=== PATIENT | male | born 1945 | race Two or more races ===

== ENCOUNTER 2018-12-18 23:05 | Emergency (ER) | payer OTHER ==
[~2018-12-18] VITALS: Ht 180.3 cm; Wt 78.5 kg
--- OUTSIDE RECORDS SUMMARY | 2018-12-18 23:08 | XMS REPORT | Summary of Care ---
Author Author [facility] [place] Organization [facility] [place] Address Unknown Phone Unavailable Encounter HQ Dennys(FIN) [phone] Date(s): 12/08/18 - 12/08/18 [facility] [place] [address] [place] [phone] [phone] Discharge Disposition: Home or Self Care Attending Physician: Kusum Leon MD Referring Physician: Kusum Leon MD Vital Signs No data available for this section Problem List Condition Effective Dates Status Health Status Informant Cholesterol Resolved level(Confirmed)1 Hypertension(Confirm Resolved ed) Mass(Confirmed)2 Resolved Neck pain(Confirmed) Resolved Reflux(Confirmed) Resolved 1high 2lung Allergies, Adverse Reactions, Alerts Substance Reaction Severity Status penicillins Facial swelling Active lisinopril Active Medications No data available for this section Results No data available for this section Immunizations No data available for this section Procedures Procedure Date Related Diagnosis Body Site Status 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 Smoking Status Former smoker; Exposure to Tobacco Smoke None; Cigarette Smoking Last 365 Days No; Reg Smoking Cessation Counseling No entered on: 07/28/14 Assessment and Plan No data available for this section
--- OUTSIDE RECORDS SUMMARY | 2018-12-18 23:08 | XMS REPORT | Continuity of Care Document ---
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 [facility] Cholesterol level<sup>1</sup> Resolved Problem 12/10/2018 high [facility], [facility] [place] Hypertension Resolved Problem 12/10/2018 [facility], [facility] [place] Mass<sup>2</sup> Resolved Problem 12/10/2018 lung [facility], [facility] [place] Neck pain Resolved Problem 12/10/2018 [facility], [facility] [place] Reflux Resolved Problem 12/10/2018 [facility], [facility] [place] 786.6 Active [facility] CHEST SWELLING/MASS/LUMP Active [facility] XRAY Active [facility] Medications Medication Details Route Status Patient Instructions Ordering Provider Order Date Source Albuterol 0.09 MG/ACTUAT Inhalant Solution 2 puff, Route: INHALER, Drug Form: AERO/A, Dosing Weight 76.364, kg, Q6H, Start date: 08/03/14 18:00:00, Duration: 30 day, Stop date: 09/02/14 12:00:00Notes: Albuterol 90 microgram/inh 8gm HFA Same as: Ventjean claude, Proventil Inactive 08/03/2014 [facility] Albuterol 0.09 MG/ACTUAT Inhalant Solution 180 microgram=2 puff, INHALER, Q6H, # 1 spray, 0 Refill(s) Active 08/03/2014 [facility] Aspirin 325 MG Enteric Coated Tablet 325 mg, 1 tab, Route: PO, Drug form: ECTAB, Daily, Dosing Weight 76.364, kg, Priority: NOW, Start date: 08/02/14 20:17:00, Duration: 30 day, Stop date: 08/31/14 9:00:00Notes: (Do Not Crush) Do not crush or chew. No Longer Active 08/03/2014 [facility] acetaminophen-codeine #3 2 tab, Route: PO, Drug Form: TAB, Dosing Weight 76.364, kg, Q4H, PRN Pain Score 4-6, Start date: 08/02/14 7:16:00, Duration: 30 day, Stop date: 09/01/14 7:15:00Notes: Do not exceed 4gm/day of acetaminophen. (Same as: Tylenol with Codeine # 3) No Longer Active 08/02/2014 [facility] Silver Sulfadiazine 10 MG/ML Topical Cream [Silvadene] 1 appl, Route: TOP, BID, Drug form: CRM, Start date: 08/01/14 17:00:00, Duration: 30 day, Stop date: 08/31/14 9:00:00Notes: (Same as: Silvadene) No Longer Active 08/01/2014 [facility] Amlodipine 10 mg, 2 tab, Route: PO, Drug form: TAB, Daily, Dosing Weight 76.364, kg, Start date: 08/01/14 9:00:00, Duration: 30 day, Stop date: 08/30/14 9:00:00Notes: (Same as: Norvasc) No Longer Active 08/01/2014 [facility] Losartan 100 mg, 2 tab, Route: PO, Drug form: TAB, Daily, Dosing Weight 76.364, kg, Start date: 08/01/14 9:00:00, Duration: 30 day, Stop date: 08/30/14 9:00:00Notes: (Same as: Cozaar) No Longer Active 08/01/2014 [facility] Doxazosin 8 mg, 2 tab, Route: PO, Drug form: TAB, Bedtime, Dosing Weight 76.364, kg, Start date: 07/31/14 23:00:00, Duration: 30 day, Stop date: 08/30/14 21:00:00Notes: (Same as: Cardura) No Longer Active 08/01/2014 [facility] Pravastatin 20 mg, 1 tab, Route: PO, Drug form: TAB, Bedtime, Dosing Weight 76.364, kg, Start date: 07/31/14 21:00:00, Duration: 30 day, Stop date: 08/29/14 21:00:00Notes: (Same as: Pravachol) No Longer Active 08/01/2014 [facility] Dulcolax Laxative 10 mg, 1 supp, Route: SC, Drug form: SUPP, Daily, Dosing Weight 76.364, kg, PRN Constipation, Priority: STAT, Start date: 07/31/14 18:32:00, Duration: 30 day, Stop date: 08/30/14 18:31:00Notes: (Same As: Dulcolax, Bisco-Lax) No Longer Active 07/31/2014 [facility] Calcium Carbonate 1250 MG Oral Tablet 1,000 mg, 2 tab, Route: PO, Drug form: TAB, BID, Dosing Weight 76.364, kg, Start date: 07/31/14 17:00:00, Duration: 30 day, Stop date: 08/30/14 9:00:00Notes: 500mg elemental [id number] calcium carbonate. Contains 500mg elemental calcium. (Same As: OsCal 500) No Longer Active 07/31/2014 [facility] heparin, porcine 5,000 unit, 1 mL, Route: SUB-Q, Drug form: INJ, C25H-24, Dosing Weight 76.364, kg, Start date: 07/31/14 8:00:00, Duration: 30 day, Stop date: 08/29/14 20:00:00Notes: porcine heparin No Longer Active 07/31/2014 [facility] lansoprazole 15 mg, Route: PO, Drug form: ECCAP, Before Breakfast, Dosing Weight 76.364, kg, Start date: 07/31/14 7:30:00, Duration: 30 day, Stop date: 08/29/14 7:30:00 Inactive 07/31/2014 [facility] Protonix 40 mg, 1 tab, Route: PO, Drug form: ECTAB, Before Breakfast, Start date: 07/31/14 7:30:00, Duration: 30 day, Stop date: 08/29/14 7:30:00Notes: Tablet should not be chewed or crushed. (Same as: Protonix) No Longer Active 07/31/2014 [facility] Sodium Chloride 0.154 MEQ/ML Injectable Solution 500 mL, 0 ml/hr, Infuse Over: 0 hr, Route: IV, 500, Drug form: INJ, ONCE, Dosing Weight 76.364 kg, Start date: 07/31/14 6:03:00, Stop date: 07/31/14 6:03:00 Inactive 07/31/2014 [facility] Levaquin 500 mg, 100 mL, Route: IVPB, Drug form: INJ, [id number], Start date: 07/31/14 5:00:00, Duration: 30 day, Stop date: 08/29/14 5:00:00Notes: (Same as:Levaquin) No Longer Active 07/31/2014 [facility] nitroglycerin 0.4 mg sublingual tablet 0.4 mg, 1 tab, Route: SL, Drug form: TAB, Q5Min, PRN Chest Pain, Start date: 07/30/14 19:13:00, Duration: 30 day, Stop date: 08/29/14 18:12:00Notes: (Same as:Nitroquick, Nitrostat) "Do Not Crush" Sublingual tablet No Longer Active 07/31/2014 [facility] atropine 0.5 mg, 5 mL, Route: IVP, Drug form: INJ, PRN, PRN Bradycardia, Start date: 07/30/14 19:13:00, Duration: 30 day, Stop date: 08/29/14 18:12:00 No Longer Active 07/31/2014 [facility] Magnesium Sulfate 2 gm, 50 mL, Route: IVPB, Drug form: INJ, Q2H, Dosing Weight 76.364, kg, Total dose=4 gm, Priority: NOW, Start date: 07/30/14 17:09:00, Duration: 2 doses or times, Stop date: 07/30/14 20:00:00 Inactive 07/30/2014 [facility] Robinul 0.2 mg, Route: IV, ONCE, Dosing Weight 76.364, kg, Start date: 07/30/14 15:42:00, Stop date: 07/30/14 15:42:00 Inactive 07/30/2014 [facility] Magnesium Sulfate 2 gm, 50 mL, Route: IVPB, Drug form: INJ, ONCE, Dosing Weight 76.364, kg, Total dose=2 gm, Start date: 07/30/14 15:12:00, Duration: 1 doses or times, Stop date: 07/30/14 15:12:00 Inactive 07/30/2014 [facility] Albuterol 0.83 MG/ML Inhalant Solution 2.49 mg, 3 mL, Route: NEB, Drug form: SOLN, RQ4H, Dosing Weight 76.364, kg, Start date: 07/30/14 15:00:00, Duration: 30 day, Stop date: 08/29/14 11:00:00Notes: SEE RT DOCUMENTATION (Same as: Proventil) No Longer Active 07/30/2014 [facility] Hydromorphone 15 mg, 30 mL, Route: IV, Initial Loading Dose: 0 mg, [employer] OPERATIONS [employer]ERK Dose: 0.2 mg, FIN[employer] OPERATIONS [employer]ERK Lockout: 15 minutes, Continuous Basal Rate: 0 mg, 4 Hour Limit (In MG): 3.2, Drug Form: INJ, Continuous, Start date: 07/30/14 15:00:00, Duration: 30 day, Stop date: 08/29/14 13...Notes: (Same as: Dilaudid) conc=0.5 mg/ml Hydromorphone [employer] OPERATIONS [employer]ERK Dose: ;Delay: ;Basal: No Longer Active 07/30/2014 [facility] Naloxone 0.04 mg, 0.1 mL, Route: IVP, Drug form: INJ, Q2MIN, Dosing Weight 76.364, kg, PRN Narcotic Reversal, Start date: 07/30/14 14:35:00, Duration: 8 doses or times, Stop date: Limited # of timesNotes: Same as Narcan Inactive 07/30/2014 [facility] Morphine 2 mg, 1 mL, Route: IVP, Drug form: INJ, Q5Min, Dosing Weight 76.364, kg, PRN Pain Score 4-6, Start date: 07/30/14 14:35:00, Duration: 5 doses or times, Stop date: Limited # of timesNotes: (Same as:MO RPhine Sulfate) Inactive 07/30/2014 [facility] Meperidine 12.5 mg, 0.25 mL, Route: IVP, Drug form: INJ, Q30Min, Dosing Weight 76.364, kg, PRN Other -See Comment, For shivering, Start date: 07/30/14 14:35:00, Duration: 2 doses or times, Stop date: Limited # of timesNotes: (Same As: Demerol) Inactive 07/30/2014 [facility] Flumazenil 0.2 mg, 2 mL, Route: IVP, Drug form: INJ, PRN, Dosing Weight 76.364, kg, PRN Benzodiazepine Reversal, Initial dose, Start date: 07/30/14 14:35:00, Duration: 30 day, Stop date: 08/29/14 13:34:00Notes: (Same as: Romazicon) Inactive 07/30/2014 [facility] Fentanyl 25 microgram, 0.5 mL, Route: IVP, Drug form: INJ, Q5Min, Dosing Weight 76.364, kg, PRN Pain Score 4-6, Start date: 07/30/14 14:35:00, Duration: 4 doses or times, Stop date: Limited # of timesNotes: (Same as: Sublimaze) Preservative free. Inactive 07/30/2014 [facility] Ondansetron 4 mg, Route: IVP, ONCE, Dosing Weight 76.364, kg, PRN Nausea & Vomiting, Start date: 07/30/14 14:35:00 Inactive 07/30/2014 [facility] Naloxone 0.04 mg, 0.1 mL, Route: IVP, Drug form: INJ, Q2MIN, Dosing Weight 76.364, kg, PRN Narcotic Reversal, Start date: 07/30/14 14:34:00, Duration: 30 day, Stop date: 08/29/14 13:33:00Notes: Same as Narcan No Longer Active 07/30/2014 [facility] Levofloxacin 500 mg, Route: IVPB, [id number], Dosing Weight 76.364, kg, Start date: 07/30/14 14:00:00, Duration: 30 day, Stop date: 08/28/14 14:00:00 Inactive 07/30/2014 [facility] Sodium Chloride 0.154 MEQ/ML Injectable Solution 1,000 mL, Rate: 30 ml/hr, Infuse over: 33.3 hr, Route: IV, Dosing Weight 76.364 kg, Total Volume: 1,000, Start date: 07/30/14 13:50:00, Duration: 30 day, Stop date: 08/29/14 13:49:00 No Longer Active 07/30/2014 [facility] heparin sodium, porcine 2500 UNT/ML Injectable Solution 5,000 unit, Route: SUB-Q, Drug form: INJ, ONCE, Dosing Weight 76.364, kg, Start date: 07/30/14 8:01:00, Stop date: 07/30/14 8:01:00 Inactive 07/30/2014 [facility] Levaquin 500 mg, Route: IV, ONCE, Dosing Weight 76.364, kg, Start date: 07/30/14 8:01:00, Stop date: 07/30/14 8:01:00 Inactive 07/30/2014 [facility] Calcium Chloride 0.0014 MEQ/ML / Potassium Chloride 0.004 MEQ/ML / Sodium Chloride 0.103 MEQ/ML / Sodium Lactate 0.028 MEQ/ML Injectable Solution 1,000 mL, Rate: 25 ml/hr, Infuse over: 40 hr, Route: IV, Dosing Weight 76.364 kg, Total Volume: 1,000, Start date: 07/30/14 7:59:00, Duration: 30 day, Stop date: 08/29/14 7:58:00 Inactive 07/30/2014 [facility] Acetaminophen 325 MG / Hydrocodone Bitartrate 5 MG Oral Tablet 2 tab, Route: PO, Dosing Weight 75, kg, Q4H, PRN Pain Score 4-6, Start date: 06/30/14 12:58:00, Duration: 30 day, Stop date: 07/30/14 12:57:00 No Longer Active 06/30/2014 [facility] Ondansetron 4 mg, Route: IVP, Q8H, Dosing Weight 75, kg, PRN Nausea & Vomiting, Start date: 06/30/14 12:58:00, Duration: 30 day, Stop date: 07/30/14 12:57:00 No Longer Active 06/30/2014 [facility] Tylenol 650 mg, 2 tab, Route: PO, Drug form: TAB, Q6H, Dosing Weight 80, kg, PRN Pain Score 1-3, Start date: 05/31/14 11:15:00, Duration: 30 day, Stop date: 06/30/14 11:14:00Notes: Do not exceed 4 gm/day. ( Same as: Tylenol) No Longer Active 05/31/2014 [facility] Potassium Chloride 20 mEq, 100 mL, Route: IVPB, Drug form: INJ, ONCE, Dosing Weight 80, kg, Start date: 05/31/14 10:01:00, Stop date: 05/31/14 10:01:00Notes: (Same as: KCL) Infuse no faster than 10 mEq/hr if given peripherally. Inactive 05/31/2014 [facility] Reglan 5 mg, 1 mL, Route: IVP, Drug form: INJ, Q6H, Dosing Weight 80, kg, Start date: 05/30/14 12:00:00, Duration: 30 day, Stop date: 06/29/14 6:00:00Notes: (Same as: Reglan) Inactive 05/30/2014 [facility] Levofloxacin 500 mg, 100 mL, Route: IVPB, Drug form: INJ, [id number], Dosing Weight 80, kg, Start date: 05/30/14 11:00:00, Duration: 30 day, Stop date: 06/28/14 11:00:00Notes: (Same as:Levaquin) No Longer Active 05/30/2014 [facility] Zosyn 3.375 gm, Route: IVPB, Drug form: PDR/INJ, ABXQ6H, Dosing Weight 80, kg, Start date: 05/30/14 10:00:00, Duration: 30 day, Stop date: 06/29/14 4:00:00 Inactive 05/30/2014 [facility] docusate sodium 100 mg oral capsule 100 mg, 1 cap, Route: PO, Drug form: CAP, BID, PRN Constipation, Start date: 05/30/14 9:00:00, Duration: 30 day, Stop date: 06/29/14 8:59:00Notes: (Same as: Colace) (Do Not Crush) No Longer Active 05/30/2014 [facility] Losartan 100 mg, 2 tab, Route: PO, Drug form: TAB, Daily, Dosing Weight 80, kg, Start date: 05/30/14 9:00:00, Duration: 30 day, Stop date: 06/28/14 9:00:00Notes: (Same as: Cozaar) No Longer Active 05/30/2014 [facility] Amlodipine 10 mg, 2 tab, Route: PO, Drug form: TAB, Daily, Dosing Weight 80, kg, Start date: 05/30/14 9:00:00, Duration: 30 day, Stop date: 06/28/14 9:00:00Notes: (Same as: Norvasc) No Longer Active 05/30/2014 [facility] lansoprazole 30 mg, Route: PO, Drug form: ECCAP, Before Breakfast, Dosing Weight 80, kg, Start date: 05/30/14 7:30:00, Duration: 30 day, Stop date: 06/28/14 7:30:00 No Longer Active 05/30/2014 [facility] Reglan 5 mg, 1 mL, Route: IV, Drug form: INJ, ONCE, Dosing Weight 80, kg, Start date: 05/29/14 22:48:00, Stop date: 05/29/14 22:48:00Notes: (Same as: Reglan) Inactive 05/30/2014 [facility] Pravastatin 20 mg, 1 tab, Route: PO, Drug form: TAB, Bedtime, Dosing Weight 80, kg, Start date: 05/29/14 21:00:00, Duration: 30 day, Stop date: 06/27/14 21:00:00Notes: (Same as: Pravachol) No Longer Active 05/30/2014 [facility] Protonix 40 mg, 1 tab, Route: PO, Drug form: ECTAB, Before Breakfast, Start date: 05/29/14 21:00:00, Duration: 30 day, Stop date: 06/28/14 7:30:00Notes: Tablet should not be chewed or crushed. (Same as: Protonix) No Longer Active 05/30/2014 [facility] Doxazosin 8 mg, 2 tab, Route: PO, Drug form: TAB, Daily, Dosing Weight 80, kg, Start date: 05/29/14 20:40:00, Duration: 30 day, Stop date: 06/28/14 21:00:00Notes: (Same as: Cardura) No Longer Active 05/30/2014 [facility] Fleet Enema 133 ml, Route: SC, Drug Form: CHERELLE, Dosing Weight 80, kg, ONCE, Start date: 05/29/14 20:18:00, Stop date: 05/29/14 20:18:00 Inactive 05/30/2014 [facility] heparin, porcine 5,000 unit, 1 mL, Route: SUB-Q, Drug form: INJ, Q12H, Dosing Weight 79.091, kg, Start date: 05/29/14 20:00:00, Duration: 30 day, Stop date: 06/28/14 9:00:00Notes: porcine heparin No Longer Active 05/30/2014 [facility] NS 1000 mL 1,000 mL, Rate: 50 ml/hr, Infuse over: 20 hr, Route: IV, Dosing Weight 80 kg, Total Volume: 1,000, Start date: 05/29/14 17:54:00, Duration: 30 day, Stop date: 06/28/14 17:53:00 No Longer Active 05/29/2014 [facility] Potassium Chloride 10 MEQ Extended Release Tablet 20 mEq, 2 tab, Route: PO, Drug form: ERTAB, ONCE, Dosing Weight 80, kg, Start date: 05/29/14 11:52:00, Stop date: 05/29/14 11:52:00Notes: (Same as: K-Dur 10) "Do Not Crush" With food and full glass of water Inactive 05/29/2014 [facility] Potassium Chloride 20 mEq, Route: IVPB, ONCE, Dosing Weight 80, kg, Priority: Routine, Start date: 05/29/14 11:50:00, Stop date: 05/29/14 11:50:00 Inactive 05/29/2014 [facility] Dulcolax Laxative 10 mg, 1 supp, Route: SC, Drug form: SUPP, ONCE, Dosing Weight 80, kg, PRN as needed for constipation, Start date: 05/29/14 11:36:00Notes: (Same As: Dulcolax, Bisco-Lax) Inactive 05/29/2014 [facility] Acetaminophen 325 MG / Hydrocodone Bitartrate 5 MG Oral Tablet 2 tab, Route: PO, Drug Form: TAB, Dosing Weight 80, kg, Q4H, PRN Pain Score 4-6, Start date: 05/29/14 11:14:00, Duration: 30 day, Stop date: 06/28/14 11:13:00Notes: (Same as: [place] 325/5) Do not exceed 4gm/day of acetaminophen. No Longer Active 05/29/2014 [facility] Potassium Chloride 40 mEq, 2 tab, Route: PO, Drug form: ERTAB, ONCE, Dosing Weight 80, kg, Priority: NOW, Start date: 05/29/14 8:00:00, Stop date: 05/29/14 8:00:00Notes: (Same as: K-Dur 20) "Do Not Crush" With food and full glass of water Inactive 05/29/2014 [facility] Ketorolac Tromethamine 15 MG/ML Injectable Solution 15 mg, 1 mL, Route: IV, Drug form: INJ, Q6H, Dosing Weight 80, kg, Start date: 05/29/14 2:00:00, Duration: 2 day, Stop date: 05/30/14 19:00:00Notes: (Same as:Toradol) IV bolus must be given >15 seconds. Give IM administration slowly and deeply into the muscle. Not for use > 4 days. Inactive 05/29/2014 [facility] heparin, porcine 5,000 unit, 1 mL, Route: SUB-Q, Drug form: INJ, [id number], Dosing Weight 79.091, kg, Start date: 05/28/14 23:00:00, Duration: 30 day, Stop date: 06/27/14 11:00:00Notes: porcine heparin No Longer Active 05/29/2014 [facility] chlorhexidine gluconate 1.2 MG/ML Mouthwash 15 ml, Route: S&SPIT, Q12H, Drug form: LIQ, Start date: 05/28/14 21:00:00, Duration: 2 week, Stop date: 06/11/14 9:00:00Notes: (Same As: Peridex) No Longer Active 05/29/2014 [facility] Ketorolac Tromethamine 30 MG/ML Injectable Solution 30 mg, 1 mL, Route: IV, Drug form: INJ, ONCE, Dosing Weight 80, kg, Start date: 05/28/14 19:13:00, Duration: 1 doses or times, Stop date: 05/28/14 19:13:00Notes: (Same as:Toradol) IV bolus must be given >15 seconds. Give IM administration slowly and deeply into the muscle. Not for use > 4 days Inactive 05/29/2014 [facility] Albuterol 0.83 MG/ML Inhalant Solution 2.49 mg, 3 mL, Route: NEB, Drug form: SOLN, RQ4H, Dosing Weight 79.091, kg, Start date: 05/28/14 19:00:00, Duration: 30 day, Stop date: 06/27/14 15:00:00Notes: SEE RT DOCUMENTATION (Same as: Proventil) Inactive 05/29/2014 [facility] Levofloxacin 500 mg, 100 mL, Route: IVPB, Drug form: INJ, [id number], Dosing Weight 79.091, kg, Start date: 05/28/14 17:00:00, Duration: 30 day, Stop date: 06/26/14 17:00:00Notes: (Same as:Levaquin) No Longer Active 05/28/2014 [facility] Cefoxitin 20 MG/ML Injectable Solution 1 gm, Route: IVPB, ABXQ6H, Dosing Weight 79.091, kg, Start date: 05/28/14 17:00:00, Duration: 24 hr, Stop date: 05/29/14 11:00:00Notes: (Same As: Mefoxin) No Longer Active 05/28/2014 [facility] Magnesium Sulfate 2 gm, 50 mL, Route: IVPB, Drug form: INJ, ONCE, Dosing Weight 80, kg, Total dose=2 gm, Start date: 05/28/14 16:48:00, Duration: 1 doses or times, Stop date: 05/28/14 16:48:00 Inactive 05/28/2014 [facility] Naloxone 0.04 mg, 0.1 mL, Route: IVP, Drug form: INJ, Q2MIN, Dosing Weight 79.091, kg, PRN Narcotic Reversal, Start date: 05/28/14 16:06:00, Duration: 30 day, Stop date: 06/27/14 16:05:00Notes: Same as Narcan No Longer Active 05/28/2014 [facility] Morphine 30 mg, 30 mL, Route: IV, FIN[employer]CIAL OPERATIONS CLERK Dose: 1 mg, FINANCIAL OPERATIONS CLERK Lockout: 10 minutes, Continuous Basal Rate: 0 mg, 4 Hour Limit (In MG): 24, Drug Form: INJ, Continuous, Pain, Start date: 05/28/14 16:06:00, Duration: 30 day, Stop date: 06/27/14 16:05:00Notes: Dose: Delay: Basal rate: 4hr limit: (Same as:Rapi-Ject) No Longer Active 05/28/2014 [facility] Docusate 100 mg, Route: PO, BID, Dosing Weight 79.091, kg, PRN Constipation, Start date: 05/28/14 16:06:00, Duration: 30 day, Stop date: 06/27/14 16:05:00 Inactive 05/28/2014 [facility] Nitroglycerin 0.4 mg, 1 tab, Route: SL, Drug form: TAB, Q5Min, Dosing Weight 79.091, kg, PRN Chest Pain, Start date: 05/28/14 16:06:00, Duration: 30 day, Stop date: 06/27/14 16:05:00Notes: (Same as:NitroquSukhjinder velasquez rostat) "Do Not Crush" Sublingual tablet No Longer Active 05/28/2014 [facility] Sodium Chloride 0.154 MEQ/ML Injectable Solution 1,000 mL, Rate: 75 ml/hr, Infuse over: 13.3 hr, Route: IV, Dosing Weight 79.091 kg, Total Volume: 1,000, Start date: 05/28/14 16:06:00, Duration: 30 day, Stop date: 06/27/14 16:05:00 No Longer Active 05/28/2014 [facility] Magnesium Sulfate 2 gm, 50 mL, Route: IVPB, Drug form: INJ, ONCE, Dosing Weight 79.091, kg, Start date: 05/28/14 12:06:00, Duration: 2 hr, Stop date: 05/28/14 12:06:00 Inactive 05/28/2014 [facility] Albuterol 0.83 MG/ML Inhalant Solution 2.49 mg, 3 mL, Route: NEB, Drug form: SOLN, RQ4H, Dosing Weight 79.091, kg, Start date: 05/28/14 11:00:00, Duration: 30 day, Stop date: 06/27/14 7:00:00Notes: SEE RT DOCUMENTATION (Same as: Proventil) No Longer Active 05/28/2014 [facility] Morphine 30 mg, 30 mL, Route: IV, FIN[employer]CIAL OPERATIONS CLERK Dose: 1 mg, FINANCIAL OPERATIONS CLERK Lockout: 10 minutes, Continuous Basal Rate: 0 mg, 4 Hour Limit (In MG): 24, Drug Form: INJ, Continuous, Pain, Start date: 05/28/14 10:43:00, Duration: 30 day, Stop date: 06/27/14 10:42:00Notes: Dose: Delay: Basal rate: 4hr limit: (Same as:Judit-Jebhavesh) Inactive 05/28/2014 [facility] Naloxone 0.04 mg, 0.1 mL, Route: IVP, Drug form: INJ, Q2MIN, Dosing Weight 79.091, kg, PRN Narcotic Reversal, Start date: 05/28/14 10:43:00, Duration: 30 day, Stop date: 06/27/14 10:42:00Notes: Same as Narcan Inactive 05/28/2014 [facility] Sodium Chloride 0.154 MEQ/ML Injectable Solution 1,000 mL, Rate: 75 ml/hr, Infuse over: 13.3 hr, Route: IV, Dosing Weight 79.091 kg, Total Volume: 1,000, Start date: 05/28/14 10:43:00, Duration: 30 day, Stop date: 06/27/14 10:42:00 Inactive 05/28/2014 [facility] Promethazine 6.25 mg, 0.25 mL, Route: IVPB, ONCE, Dosing Weight 79.091, kg, PRN Nausea & Vomiting, Start date: 05/28/14 10:36:00Notes: Do not give IV push. (Same as: Phenergan) Inactive 05/28/2014 [facility] Ondansetron 4 mg, 2 mL, Route: IVP, Drug form: INJ, ONCE, Dosing Weight 79.091, kg, PRN Nausea & Vomiting, Start date: 05/28/14 10:36:00Notes: (Same as: Zofran) Inactive 05/28/2014 [facility] Diphenhydramine 12.5 mg, 0.25 mL, Route: IVP, Drug form: INJ, Q6H, Dosing Weight 79.091, kg, PRN Itching, Start date: 05/28/14 10:36:00, Duration: 30 day, Stop date: 06/27/14 10:35:00Notes: (Same as: Benadryl) Inactive 05/28/2014 [facility] Naloxone 0.04 mg, 0.1 mL, Route: IVP, Drug form: INJ, Q2MIN, Dosing Weight 79.091, kg, PRN Narcotic Reversal, Start date: 05/28/14 10:36:00, Duration: 8 doses or times, Stop date: Limited # of timesNotes: Same as Narcan Inactive 05/28/2014 [facility] Glycopyrrolate 0.2 mg, 1 mL, Route: IVP, Drug form: INJ, Q5Min, Dosing Weight 79.091, kg, PRN Bradycardia, Start date: 05/28/14 10:36:00, Duration: 3 doses or times, Stop date: Limited # of timesNotes: (Same as: Robinul) Inactive 05/28/2014 [facility] Ketorolac 30 mg, 1 mL, Route: IVP, Drug form: INJ, ONCE, Dosing Weight 79.091, kg, Start date: 05/28/14 10:36:00, Duration: 1 doses or times, Stop date: 05/28/14 10:36:00Notes: (Same as:Toradol) IV bolus must be given >15 seconds. Give IM administration slowly and deeply into the muscle. Not for use > 4 days Inactive 05/28/2014 [facility] Fentanyl 25 microgram, 0.5 mL, Route: IVP, Drug form: INJ, Q5Min, Dosing Weight 79.091, kg, PRN Pain Score 4-6, Start date: 05/28/14 10:36:00, Duration: 4 doses or times, Stop date: Limited # of timesNotes: (Same as: Sublimaze) Preservative free. Inactive 05/28/2014 [facility] Meperidine 12.5 mg, 0.25 mL, Route: IVP, Drug form: INJ, Q30Min, Dosing Weight 79.091, kg, PRN Other -See Comment, For shivering, Start date: 05/28/14 10:36:00, Duration: 2 doses or times, Stop date: Limited # of timesNotes: (Same As: Demerol) Inactive 05/28/2014 [facility] Flumazenil 0.2 mg, 2 mL, Route: IVP, Drug form: INJ, PRN, Dosing Weight 79.091, kg, PRN Benzodiazepine Reversal, Initial dose, Start date: 05/28/14 10:36:00, Duration: 30 day, Stop date: 06/27/14 10:35:00Notes: (Same as: Romazicon) Inactive 05/28/2014 [facility] Morphine 2 mg, 1 mL, Route: IVP, Drug form: INJ, Q5Min, Dosing Weight 79.091, kg, PRN Pain Score 4-6, Start date: 05/28/14 10:36:00, Duration: 5 doses or times, Stop date: Limited # of timesNotes: (Same as:MO RPhine Sulfate) Inactive 05/28/2014 [facility] Oxycodone 10 mg, 2 tab, Route: PO, Drug form: TAB, Q4H, Dosing Weight 79.091, kg, PRN Pain Score 7-10, Start date: 05/28/14 10:36:00, Duration: 30 day, Stop date: 06/27/14 10:35:00Notes: (Same as: Roxicodone) Inactive 05/28/2014 [facility] Hydromorphone 0.5 mg, 0.5 mL, Route: IVP, Drug form: INJ, Q5Min, Dosing Weight 79.091, kg, PRN Pain Score 7-10, Start date: 05/28/14 10:36:00, Duration: 4 doses or times, Stop date: Limited # of times Inactive 05/28/2014 [facility] Metoprolol 1 mg, 1 mL, Route: IVP, Drug form: INJ, Q5Min, Dosing Weight 79.091, kg, PRN Other -See Comment, Start date: 05/28/14 10:36:00, Duration: 5 doses or times, Stop date: Limited # of timesNotes: (Same as: Lopressor) Push over 2 minutes Inactive 05/28/2014 [facility] Hydralazine 10 mg, 0.5 mL, Route: IVP, Drug form: INJ, Q20Min, Dosing Weight 79.091, kg, PRN Elevated BP, Start date: 05/28/14 10:36:00, Duration: 2 doses or times, Stop date: Limited # of timesNotes: (Same as: Apresoline) Push over 5 minutes Inactive 05/28/2014 [facility] Albuterol 0.83 MG/ML Inhalant Solution 2.49 mg, 3 mL, Route: NEB, Drug form: SOLN, ONCE, Dosing Weight 79.091, kg, Start date: 05/28/14 7:43:00, Stop date: 05/28/14 7:43:00Notes: SEE RT DOCUMENTATION (Same as: Proventil) Inactive 05/28/2014 [facility] Levaquin 500 mg, 100 mL, Route: IV, Drug form: INJ, ONCE, Dosing Weight 79.091, kg, Start date: 05/28/14 7:06:00, Stop date: 05/28/14 7:06:00Notes: (Same as:Levaquin) Inactive 05/28/2014 [facility] heparin sodium, porcine 2500 UNT/ML Injectable Solution 5,000 unit, Route: SUB-Q, Drug form: INJ, ONCE, Dosing Weight 79.091, kg, Start date: 05/28/14 7:06:00, Stop date: 05/28/14 7:06:00 Inactive 05/28/2014 [facility] Calcium Chloride 0.0014 MEQ/ML / Potassium Chloride 0.004 MEQ/ML / Sodium Chloride 0.103 MEQ/ML / Sodium Lactate 0.028 MEQ/ML Injectable Solution 1,000 mL, Rate: 25 ml/hr, Infuse over: 40 hr, Route: IV, Dosing Weight 79.091 kg, Total Volume: 1,000, Start date: 05/28/14 7:04:00, Duration: 30 day, Stop date: 06/27/14 7:03:00 Inactive 05/28/2014 [facility] Amlodipine 10 mg, PO, Daily, 0 Refill(s) Active 05/26/2014 [facility] losartan 100 mg oral tablet 100 mg=1 tab, PO, Daily, # 30 tab, 0 Refill(s) Active 05/26/2014 [facility] pravastatin 20 mg oral tablet 20 mg=1 tab, PO, Bedtime, # 30 tab, 0 Refill(s) Active 05/26/2014 [facility] doxazosin 4 mg oral tablet 8 mg=2 tab, PO, Daily, # 30 tab, 0 Refill(s) Active 05/26/2014 [facility] lansoprazole 15 mg oral delayed release capsule 15 mg=1 cap, PO, Daily, # 30 cap, 0 Refill(s) Active 05/26/2014 [facility] Allergies, Adverse Reactions, Alerts Substance Category Reaction Severity Reaction type Status Date Reported Comments Source lisinopril Assertion Drug allergy Active [facility] [place] penicillins Assertion Facial swelling (finding) Drug allergy Active [facility] [place] Immunizations Immunization Date Given Site Status Last Updated Comments Source Results Order Name Results Value Reference Range Date Interpretation Comments Source Spine Thoracic w/wo contrast MRI Spine Thoracic w/wo contrast MRI Spine Thoracic w/wo contrast MRI 12/08/2018 15:23 [employer] HISTORY/INDICATIONS:73 years Male R10.9 Unspecified abdominal pain, M54.14 Radiculopathy, thoracic region, G58.8 Other specified mononeuropathies - R10.9 Unspecified abdominal pain, M54.14 Radiculopathy, thoracic region, G58.8 Other specified mononeuropathies TECHNIQUE: Multiplanar T1 and T2 weighted sequences (some with optional fat suppression techniques) were obtained. CONTRAST: None COMPARISON: None FINDINGS: Alignment: Normal Lower cervical spine: Degenerative changes seen in the cervical spine with disc osteophyte bulges C3-4, and C5-6 and C6-7. Upper lumbar spine: Negative. Fractures: Negative. Vertebra: Negative. Discs: Negative. Articular processes: Negative. Spinal cord: Negative. Spinal stenosis: Negative. Chest and other paravertebral structures: Tortuous ectatic thoracic aorta IMPRESSION: No significant abnormalities seen in the thoracic spine. Degenerative changes in cervical spine as described. 12/08/2018 - - Read by: Otf Lisa MD Dictated Date/time: 12/08/18 21:00 Electronically Signed by: Otf Lisa MD 12/08/18 21:41 FINAL REPORT [facility] Chest 2 views Chest 2 views CHEST RADIOGRAPH 2 VIEWS INDICATION: Shortness of breath COMPARISON: Chest radiograph 08/11/2014 FINDINGS: Postoperative changes related to right partial pneumonectomy are again noted. Pleural thickening or effusion at the right apex and right lung base is unchanged. No consolidation or pneumothorax are visible. The cardiac silhouette and pulmonary vasculature are grossly within normal limits. IMPRESSION: Stable postoperative changes of the chest. SL: 16 09/01/2014 - - Read by: Donald Barney MD Dictated Date/time: 09/01/14 09:33 Electronically Signed by: Donald Barney MD 09/01/14 09:35 FINAL REPORT [facility] Chest 2 views Chest 2 views HISTORY: Lung mass. Chest 2 views. Comparison 08/03/2014. Apparently post partial pneumonectomy on the right. Pleural parenchymal opacities obscuring the right lower lung zone, stable from previous. No pneumothorax or enlarging pleural effusion. Left lung clear. Heart size normal. IMPRESSION: Baseline postoperative changes since 07/26/2014. No new or acute finding. SL:13 08/11/2014 - - Read by: Vishal Mcpherson MD Dictated Date/time: 08/11/14 11:58 Electronically Signed by: Vishal Mcpherson MD 08/11/14 11:59 FINAL REPORT [facility] CHEM PANEL Magnesium Lvl 2.0 mg/dL 1.8 - 2.4 08/03/2014 [facility] ELECTROLYTES Sodium Lvl 139 meq/L 135 - 145 08/03/2014 [facility] ELECTROLYTES Chloride Lvl 102 meq/L 95 - 109 08/03/2014 [facility] ELECTROLYTES Potassium Lvl 3.9 meq/L 3.5 - 5.1 08/03/2014 [facility] ELECTROLYTES eGFR 78 mL/min/1.73m2 08/03/2014 2Result Comment: The eGFR is calculated using the CKD-EPI formula. In most young, healthy individuals the eGFR will be >90 mL/min/1.73m2. The eGFR declines with age. An eGFR of 60-89 may be normal in some populations, particularly the elderly, for whom the CKD-EPI formula has not been extensively validated. Use of the eGFR is not recommended in the following populations: Individuals with unstable creatinine concentrations, including patients and those with serious co-morbid conditions. Patients with extremes in muscle mass or diet. The data above are obtained from the National Kidney Disease Education Program (NKDEP) which additionally recommends that when the eGFR is used in patients with extremes of body mass index for purposes of drug dosing, the eGFR should be multiplied by the estimated BMI. [facility] ELECTROLYTES BUN 4 mg/dL 7 - 22 08/03/2014 [facility] ELECTROLYTES Creatinine Lvl 1.0 mg/dL 0.5 - 1.4 08/03/2014 [facility] ELECTROLYTES CO2 29 meq/L 24 - 32 08/03/2014 [facility] ELECTROLYTES Calcium Lvl 8.6 mg/dL 8.5 - 10.5 08/03/2014 [facility] ELECTROLYTES Glucose Lvl 114 mg/dL 70 - 99 08/03/2014 5Interpretive Data: Adult reference range values reflect the clinical guidelines of the [place] [employer]. [facility] ELECTROLYTES AGAP 11.9 meq/L 10.0 - 20.0 08/03/2014 [facility] HEMATOLOGY Basophils 0.2 % 0.0 - 1.0 08/03/2014 [facility] HEMATOLOGY Lymphocytes # 1.5 K/CMM 1.0 - 5.5 08/03/2014 [facility] HEMATOLOGY Segs-Bands # 5.3 K/CMM 1.5 - 8.1 08/03/2014 [facility] Monocytes 7.5 % 2.0 - 12.0 08/03/2014 [facility] HEMATOLOGY Eosinophils 13.9 % 0.0 - 4.0 08/03/2014 [facility] HEMATOLOGY Eosinophils # 1.2 K/CMM 0.0 - 0.5 08/03/2014 [facility] HEMATOLOGY Monocytes # 0.7 K/CMM 0.0 - 0.8 08/03/2014 [facility] Lymphocytes 17.4 % 20.0 - 40.0 08/03/2014 [facility] Segs 61.0 % 45.0 - 75.0 08/03/2014 [facility] MCH 32.5 pg 27.0 - 31.0 08/03/2014 [facility] MPV 8.2 fL 7.4 - 10.4 08/03/2014 [facility] RDW 14.0 % 11.5 - 14.5 08/03/2014 [facility] MCHC 33.6 g/dL 32.0 - 36.0 08/03/2014 [facility] Platelet 279 K/CMM 133 - 450 08/03/2014 [facility] Hgb 11.1 g/dL 14.0 - 18.0 08/03/2014 [facility] MCV 96.7 fL 80.0 - 94.0 08/03/2014 [facility] Hct 33.1 % 42.0 - 54.0 08/03/2014 [facility] WBC 8.6 K/CMM 3.7 - 10.4 08/03/2014 [facility] RBC 3.42 M/CMM 4.70 - 6.10 08/03/2014 [facility] Chest 1view Chest 1view Portable chest: Postoperative changes on the right are again noted and stable compared to the previous day. There is mild pleural thickening or fluid at the right base and mild atelectasis in the right midlung versus fluid in a fissure. There is no evidence of pneumothorax. The left lung and pleural space are clear. There is no other significant change. SL:13 08/03/2014 - - Read by: Dheeraj Fermin MD Dictated Date/time: 08/03/14 08:51 Electronically Signed by: Dheeraj Fermin MD 08/03/14 08:54 FINAL REPORT [facility] CHEM PANEL Magnesium Lvl 2.1 mg/dL 1.8 - 2.4 08/02/2014 [facility] ELECTROLYTES AGAP 14.3 meq/L 10.0 - 20.0 08/02/2014 [facility] ELECTROLYTES Chloride Lvl 101 meq/L 95 - 109 08/02/2014 [facility] ELECTROLYTES Potassium Lvl 4.3 meq/L 3.5 - 5.1 08/02/2014 [facility] ELECTROLYTES Sodium Lvl 134 meq/L 135 - 145 08/02/2014 [facility] ELECTROLYTES eGFR 88 mL/min/1.73m2 08/02/2014 3Result Comment: The eGFR is calculated using the CKD-EPI formula. In most young, healthy individuals the eGFR will be >90 mL/min/1.73m2. The eGFR declines with age. An eGFR of 60-89 may be normal in some populations, particularly the elderly, for whom the CKD-EPI formula has not been extensively validated. Use of the eGFR is not recommended in the following populations: Individuals with unstable creatinine concentrations, including patients and those with serious co-morbid conditions. Patients with extremes in muscle mass or diet. The data above are obtained from the National Kidney Disease Education Program (NKDEP) which additionally recommends that when the eGFR is used in patients with extremes of body mass index for purposes of drug dosing, the eGFR should be multiplied by the estimated BMI. [facility] ELECTROLYTES CO2 23 meq/L 24 - 32 08/02/2014 [facility] ELECTROLYTES Calcium Lvl 8.1 mg/dL 8.5 - 10.5 08/02/2014 [facility] ELECTROLYTES BUN 5 mg/dL 7 - 22 08/02/2014 [facility] ELECTROLYTES Creatinine Lvl 0.9 mg/dL 0.5 - 1.4 08/02/2014 [facility] ELECTROLYTES Glucose Lvl 124 mg/dL 70 - 99 08/02/2014 6Interpretive Data: Adult reference range values reflect the clinical guidelines of the [place] [employer]. [facility] HEMATOLOGY Lymphocytes # 0.8 K/CMM 1.0 - 5.5 08/02/2014 [facility] HEMATOLOGY Eosinophils # 0.8 K/CMM 0.0 - 0.5 08/02/2014 [facility] HEMATOLOGY Monocytes # 0.5 K/CMM 0.0 - 0.8 08/02/2014 [facility] HEMATOLOGY Basophils 0.1 % 0.0 - 1.0 08/02/2014 [facility] Segs-Bands # 6.7 K/CMM 1.5 - 8.1 08/02/2014 [facility] Monocytes 6.2 % 2.0 - 12.0 08/02/2014 [facility] Eosinophils 8.7 % 0.0 - 4.0 08/02/2014 [facility] Lymphocytes 9.4 % 20.0 - 40.0 08/02/2014 [facility] Segs 75.6 % 45.0 - 75.0 08/02/2014 [facility] MPV 8.4 fL 7.4 - 10.4 08/02/2014 [facility] Platelet 222 K/CMM 133 - 450 08/02/2014 [facility] MCHC 33.9 g/dL 32.0 - 36.0 08/02/2014 [facility] RDW 14.3 % 11.5 - 14.5 08/02/2014 [facility] RBC 3.20 M/CMM 4.70 - 6.10 08/02/2014 [facility] MCH 32.7 pg 27.0 - 31.0 08/02/2014 [facility] MCV 96.5 fL 80.0 - 94.0 08/02/2014 [facility] WBC 8.8 K/CMM 3.7 - 10.4 08/02/2014 [facility] Hgb 10.5 g/dL 14.0 - 18.0 08/02/2014 [facility] Hct 30.9 % 42.0 - 54.0 08/02/2014 [facility] Chest 1view Portable chest: Right-sided postoperative pleural and parenchymal changes are stable compared to the previous day. There is no visible pneumothorax or significant effusion. Left lung and pleural space are clear. There are no other new findings. SL:13 08/02/2014 - - Read by: Dheeraj Fermin MD Dictated Date/time: 08/02/14 07:16 Electronically Signed by: Dheeraj Fermin MD 08/02/14 07:17 FINAL REPORT [facility] 1view Chest 1view Chest one view: COMPARISON: 08/01/2014 0841 hours FINDINGS: Limited AP portable study. Right-sided chest tube has been removed in the interim. No pneumothorax is evident. Persistent right chest wall subcutaneous emphysema. Geographic opacities in the right mid to lower lung zone persist. Left lung is grossly clear. Cardiac silhouette size is within normal limits. Various EKG leads and wires project over the patient's chest. SL:13 08/01/2014 - - Read by: Kendell Lafleur MD Dictated Date/time: 08/01/14 15:12 Electronically Signed by: Kendell Lafleur MD 08/01/14 15:14 FINAL REPORT [facility] CHEM PANEL eGFR 62 mL/min/1.73m2 08/01/2014 4Result Comment: The eGFR is calculated using the CKD-EPI formula. In most young, healthy individuals the eGFR will be >90 mL/min/1.73m2. The eGFR declines with age. An eGFR of 60-89 may be normal in some populations, particularly the elderly, for whom the CKD-EPI formula has not been extensively validated. Use of the eGFR is not recommended in the following populations: Individuals with unstable creatinine concentrations, including patients and those with serious co-morbid conditions. Patients with extremes in muscle mass or diet. The data above are obtained from the National Kidney Disease Education Program (NKDEP) which additionally recommends that when the eGFR is used in patients with extremes of body mass index for purposes of drug dosing, the eGFR should be multiplied by the estimated BMI. [facility] CHEM PANEL Sodium Lvl 133 meq/L 135 - 145 08/01/2014 [facility] CHEM PANEL Potassium Lvl 4.5 meq/L 3.5 - 5.1 08/01/2014 [facility] CHEM PANEL Calcium Lvl 7.5 mg/dL 8.5 - 10.5 08/01/2014 [facility] CHEM PANEL CO2 22 meq/L 24 - 32 08/01/2014 [facility] CHEM PANEL Chloride Lvl 101 meq/L 95 - 109 08/01/2014 [facility] CHEM PANEL Creatinine Lvl 1.2 mg/dL 0.5 - 1.4 08/01/2014 [facility] CHEM PANEL BUN 10 mg/dL 7 - 22 08/01/2014 [facility] CHEM PANEL Glucose Lvl 129 mg/dL 70 - 99 08/01/2014 7Interpretive Data: Adult reference range values reflect the clinical guidelines of the [place] [employer]. [facility] CHEM PANEL AGAP 14.5 meq/L 10.0 - 20.0 08/01/2014 [facility] HEMATOLOGY Monocytes 4.9 % 2.0 - 12.0 08/01/2014 [facility] HEMATOLOGY Eosinophils 4.3 % 0.0 - 4.0 08/01/2014 [facility] Lymphocytes 8.0 % 20.0 - 40.0 08/01/2014 [facility] HEMATOLOGY Monocytes # 0.5 K/CMM 0.0 - 0.8 08/01/2014 [facility] HEMATOLOGY Lymphocytes # 0.8 K/CMM 1.0 - 5.5 08/01/2014 [facility] HEMATOLOGY Segs-Bands # 8.6 K/CMM 1.5 - 8.1 08/01/2014 [facility] Segs 82.8 % 45.0 - 75.0 08/01/2014 [facility] Eosinophils # 0.4 K/CMM 0.0 - 0.5 08/01/2014 [facility] Platelet 222 K/CMM 133 - 450 08/01/2014 [facility] HEMATOLOGY RDW 14.6 % 11.5 - 14.5 08/01/2014 [facility] Hgb 11.6 g/dL 14.0 - 18.0 08/01/2014 [facility] RBC 3.58 M/CMM 4.70 - 6.10 08/01/2014 [facility] WBC 10.4 K/CMM 3.7 - 10.4 08/01/2014 [facility] MCHC 33.6 g/dL 32.0 - 36.0 08/01/2014 [facility] MCH 32.4 pg 27.0 - 31.0 08/01/2014 [facility] MPV 8.4 fL 7.4 - 10.4 08/01/2014 [facility] MCV 96.5 fL 80.0 - 94.0 08/01/2014 [facility] Hct 34.6 % 42.0 - 54.0 08/01/2014 [facility] Chest 1view Chest 1view HISTORY: Tube placement. One view chest. Comparison 07/31/2014, and 07/30/2014. There is a right chest tube. A small right pneumothorax is now evident. Pulmonary infiltrates and atelectasis in the right lung are otherwise stable. Left lung remains clear. SL:13 08/01/2014 - - Read by: Vishal Mcpherson MD Dictated Date/time: 08/01/14 12:15 Electronically Signed by: Vishal Mcpherson MD 08/01/14 12:17 FINAL REPORT [facility] CHEM PANEL Magnesium Lvl 2.4 mg/dL 1.8 - 2.4 07/31/2014 [facility] CHEM PANEL Alk Phos 40 unit/L 39 - 136 07/31/2014 [facility] CHEM PANEL AST 36 unit/L 0 - 37 07/31/2014 [facility] CHEM PANEL Bili Total 0.7 mg/dL 0.2 - 1.3 07/31/2014 [facility] CHEM PANEL B/C Ratio 12 6 - 25 07/31/2014 [facility] CHEM PANEL A/G Ratio 1.1 0.7 - 1.6 07/31/2014 [facility] CHEM PANEL Globulin 2.6 g/dL 2.0 - 4.0 07/31/2014 [facility] CHEM PANEL ALT 21 unit/L 0 - 65 07/31/2014 [facility] CHEM PANEL Total Protein 5.5 g/dL 6.4 - 8.4 07/31/2014 [facility] CHEM PANEL Albumin Lvl 2.9 g/dL 3.5 - 5.0 07/31/2014 [facility] CHEM PANEL Vitamin D, 25-OH, Total 15 ng/mL 30 - 100 07/31/2014 8Interpretive Data: Reference range is based on recommendations in the Endocrine Society Clinical Practice Guideline (J Clin Endocrinol Metab 2011;96:9659-7951) [facility] CHEM PANEL Vitamin D2 1,25 (OH)2 null 07/31/2014 9Result Comment: Vitamin D2, 1,25 (OH)2: Reference ranges are established for total 1,25-dihydroxy vitamin D. Values for subcomponents D2 (derived from plant or fungal sources) and D3 (derived from human or animal sources) are provided for informational purposes only. This test(s) was developed and its performance characteristics have been determined by [employer], [place], [place]. Performance characteristics refer to the analytical performance of the test. Test Performed at: [employer] [facility], [address] [place] [id number] Florencio Black MD, FCAP [facility] CHEM PANEL Vitamin D 1,25 (OH)2 Total 21 pg/mL 18 - 72 07/31/2014 [facility] CHEM PANEL Vitamin D3 1,25 (OH)2 21 pg/mL 07/31/2014 [facility] Chest 1view Chest 1view HISTORY: Tube placement. One view portable chest. Comparison 07/30/2014. Right jugular central line has been removed. Right chest tube remains. No pneumothorax or developing pleural effusion. Volume loss and central opacities within the right lung appear similar to previous. Left lung is clear. Heart size stable. IMPRESSION: No significant change. SL:12 07/31/2014 - - Read by: Vishal Mcpherson MD Dictated Date/time: 07/31/14 11:23 Electronically Signed by: Vishal Mcpherson MD 07/31/14 11:25 FINAL REPORT [facility] CHEM PANEL Phosphorus 3.6 mg/dL 2.5 - 4.5 07/31/2014 [facility] PARATHYROID PROFILE PTH Intact 91.6 pg/mL 11.1 - 79.5 07/31/2014 [facility] PARATHYROID PROFILE Ca Ion WB 1.04 mMol/L 1.05 - 1.25 07/31/2014 [facility] PARATHYROID PROFILE Ca Norm WB 1.00 mMol/L 1.05 - 1.25 07/31/2014 [facility] Chest 1view Chest 1view CHEST, portable (1 view) HISTORY: Respiratory distress Comparison is made to 06/30/2014. A chest CT scan of 06/25/[address] images obtained during biopsy of a right lung mass from 06/30/2014 were reviewed. FINDINGS: 1. There is now a large bore right chest tube. There is no pneumothorax. There is a small amount of subcutaneous emphysema. 2. Again noted is a focal masslike density in the right midlung. 3. The left lung is clear. 4. Mild cardiomegaly. 5. The tip of the right internal jugular central venous catheter is in the lower superior vena cava. Coding: Chest 1view CPT Code: 66046 SL: 13 Javier Shrestha M.D. 07/30/2014 - - Read by: Javier Shrestha MD Dictated Date/time: 07/30/14 14:31 Electronically Signed by: Javier Shrestha MD 07/30/14 14:39 FINAL REPORT [facility] URINE AND STOOL UA Urobilinogen <=1.0 mg/dL 0.1 - 1.0 07/28/2014 [facility] URINE AND STOOL UA Color Ltyellow 07/28/2014 [facility] URINE AND STOOL UA Sq Epi None Seen 07/28/2014 [facility] URINE AND STOOL UA Spec Grav 1.013 <=1.030 07/28/2014 [facility] URINE AND STOOL UA Turbidity Clear (07/28/14 12:11 PM) Clear 07/28/2014 [facility] URINE AND STOOL UA Nitrite Negative (07/28/14 12:11 PM) Negative 07/28/2014 [facility] URINE AND STOOL UA Leuk Est Negative (07/28/14 12:11 PM) Negative 07/28/2014 [facility] URINE AND STOOL UA WBC 2 /HPF 0 - 5 07/28/2014 [facility] URINE AND STOOL UA pH 6.0 5.0 - 8.0 07/28/2014 [facility] URINE AND STOOL UA Glucose Negative mg/dL Negative mg/dL 07/28/2014 [facility] URINE AND STOOL UA Protein Negative mg/dL Negative mg/dL 07/28/2014 [facility] URINE AND STOOL UA Ketones Negative mg/dL Negative mg/dL 07/28/2014 [facility] URINE AND STOOL UA Blood Negative (07/28/14 12:11 PM) Negative 07/28/2014 [facility] URINE AND STOOL UA Bili Negative *NA* (07/28/14 12:11 PM) Negative 07/28/2014 [facility] BLOOD BANK RESULTS ABO/Rh O POS 07/28/2014 [facility] BLOOD BANK RESULTS Antibody Scrn Negative (07/28/14 11:45 AM) 07/28/2014 [facility] BLOOD BANK RESULTS Platelet product Product available (07/28/14 11:45 AM) 07/28/2014 [facility] BLOOD BANK RESULTS FFP product Product available (07/28/14 11:45 AM) 07/28/2014 [facility] BLOOD BANK RESULTS RBC product Product available 1 (07/28/14 11:45 AM) 07/28/2014 1Result Comment: 07/30/2014 05:01 [id number] preadmit pt/mdj [facility] CHEM PANEL A/G Ratio 1.1 0.7 - 1.6 07/28/2014 [facility] CHEM PANEL Globulin 3.9 g/dL 2.0 - 4.0 07/28/2014 [facility] CHEM PANEL B/C Ratio 15 6 - 25 07/28/2014 [facility] CHEM PANEL Bili Total 0.5 mg/dL 0.2 - 1.3 07/28/2014 [facility] CHEM PANEL ALT 23 unit/L 0 - 65 07/28/2014 [facility] CHEM PANEL Total Protein 8.1 g/dL 6.4 - 8.4 07/28/2014 [facility] CHEM PANEL AST 18 unit/L 0 - 37 07/28/2014 [facility] CHEM PANEL Alk Phos 78 unit/L 39 - 136 07/28/2014 [facility] CHEM PANEL Albumin Lvl 4.2 g/dL 3.5 - 5.0 07/28/2014 [facility] HEMATOLOGY Basophils 0.7 % 0.0 - 1.0 07/28/2014 [facility] HEMATOLOGY Basophils # 0.1 K/CMM 0.0 - 0.2 07/28/2014 [facility] INR 0.95 0.85 - 1.17 07/28/2014 10Interpretive Data: RECOMMENDED RANGES FOR PROTIME INR: 2.0-3.0 for most medical and surgical thromboembolic states. 2.5-3.5 for artificial heart valves and recurrent embolism. INR SHOULD BE USED ONLY FOR PATIENTS ON STABLE ANTICOAGULANT THERAPY. [facility] PTT 32.3 s 22.9 - 35.8 07/28/2014 11Interpretive Data: Heparin Therapeutic Range: 57 - 92 Seconds [facility] PT 12.7 s 12.0 - 14.7 07/28/2014 [facility] Chest 1view Chest 1view Portable chest: Delayed radiograph following right lung biopsy shows no evidence of pneumothorax. The right lower lung opacity remains unchanged from the previous radiographs. Mild right apical pleural thickening is again noted and stable. The left lung and pleural space are clear. The cardiomediastinal silhouette is normal. 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 Follow-up CT showed a masslike opacity in the vicinity of the previous lesion, thought to represent either postoperative fluid or hematoma. Needle biopsy is being done for further diagnostic evaluation PROCEDURE: The procedure was done using CT guidance, sterile technique and local anesthetic. A 19-gauge guide needle was placed in the right anterolateral intercostal approach into the masslike opacity in the right lung. There was no fluid yield with aspiration, with a small amount of blood and and/or clot obtained and sent for cultures. The needle was repositioned a couple of other times into different areas of the lesion, again without significant fluid yield. Several passes with coaxial 20-gauge Chiba and coaxial 20-gauge cutting needles were done at the different position and the specimens obtained placed into formalin for histology. Post procedure CT showed no evidence of pneumothorax. The patient tolerated the procedure well without immediate complications, and was transferred to Special Procedures observation in stable condition. Post procedure chest radiograph showed no evidence of pneumothorax. SL:13 06/30/2014 - - Read by: Dheeraj Fermin MD Dictated Date/time: 06/30/14 15:19 Electronically Signed by: Dheeraj Fermin MD 06/30/14 15:25 FINAL REPORT [facility] Chest w contrast CT Chest w contrast CT ADDENDUM: The study was reviewed with Dr. Corrigan. The patient is post wedge resection of a 2 cm right middle lobe of lung mass demonstrated on the PET/CT of 04/14/2014, which by pathology was a benign vascular malformation with surrounding hemorrhage. The lesion seen on the current study is slightly more lateral and posterior in location to the original lesion and adjacent to the staple line. I suspect that this new masslike opacity is fluid either in the surgical defect or in the inferior major fissure, and has the same Hounsfield density as the pleural fluid in the right posterior costophrenic sulcus. It does not enhance with contrast. Needle aspiration was discussed and will be scheduled pending Dr. Corrigan's discussion with the patient. SL:13 Exam: Chest CT with contrast. Reason for exam: lung mass COMPARISON: Chest x-ray from 06/09/2014. PET/CT from 04/24/2014. DLP: 633.39 TECHNIQUE: Multiple axial CT images of the chest were obtained with the administration of intravenous contrast. Multiplanar reformatted images were performed. FINDINGS: Coronary artery and aortic calcifications are seen. Cardiac chambers and pericardium are unremarkable. No filling defects are identified within the central pulmonary arteries. No pathologic mediastinal, hilar, or axillary adenopathy is noted. No endobronchial lesions are identified within the central airways. Postoperative changes of partial right upper lobectomy are seen with associated chain sutures and scattered areas of mild nodular scarring throughout the right upper lobe. Again noted is a 2.8 cm nodule along the right middle lobe with adjacent chain sutures and pleural thickening. Mild subsegmental atelectasis of the right middle lobe is seen. Small right pleural effusion with mild right basilar atelectasis is present. Superficial soft tissues of the chest wall are unremarkable. No suspicious osseous lesions are seen. Limited views of the upper abdomen show a lobulated peripancreatic hypodense fluid collection. IMPRESSION: 1. Postoperative changes of partial right upper lung lobectomy with scattered areas of peripheral scarring in the right upper lobe. 2. Stable appearance of a 2.8 cm right middle lobe nodule with overlying postsurgical change. 3. Small right pleural effusion with right basilar atelectasis. 4. Incidentally noted peripancreatic fluid collection which may represent pseudocyst formation. Please correlate clinically. SL: 14 06/25/2014 - - Read by: Dheeraj Fermin MD Dictated Date/time: 06/28/14 11:47 Electronically Signed by: Dheeraj Fermin MD 06/28/14 12:03 FINAL REPORT - - Read by: Pete Crane MD Dictated Date/time: 06/25/14 13:19 Electronically Signed by: Pete Crane MD 06/25/14 13:27 FINAL REPORT [facility] Chest 2 views Chest 2 views EXAM: Chest 2 views DATE: Jun 09, 2014 09:06:00 AM INDICATION: 786.6 Swelling, Mass, or Lump in Chest COMPARISON: Chest x-ray 06/01/2014. TECHNIQUE: PA and lateral chest radiographs. FINDINGS: Surgical zeke are seen in the right lower lung with resolving postsurgical hematoma in the resection cavity. Right basilar subsegmental atelectasis is present. There is a trace left pleural effusion. No pneumothorax is identified. The cardiomediastinal contours are unchanged. No acute skeletal abnormality is seen. IMPRESSION: 1. Postsurgical changes in the right lower lung. 2. Right basilar subsegmental atelectasis. 3. Trace left pleural effusion. SL: 13 06/09/2014 - - Read by: Nickoals Cole MD Dictated Date/time: 06/09/14 09:36 Electronically Signed by: Nickolas Cole MD 06/09/14 09:38 FINAL REPORT [facility] CHEM PANEL Phosphorus 1.9 mg/dL 2.5 - 4.5 06/01/2014 [facility] CHEM PANEL Magnesium Lvl 2.4 mg/dL 1.8 - 2.4 06/01/2014 [facility] ELECTROLYTES AGAP 13.1 meq/L 10.0 - 20.0 06/01/2014 [facility] ELECTROLYTES eGFR 92 mL/min/1.73m2 06/01/2014 1Result Comment: The eGFR is calculated using the CKD-EPI formula. In most young, healthy individuals the eGFR will be >90 mL/min/1.73m2. The eGFR declines with age. An eGFR of 60-89 may be normal in some populations, particularly the elderly, for whom the CKD-EPI formula has not been extensively validated. Use of the eGFR is not recommended in the following populations: Individuals with unstable creatinine concentrations, including patients and those with serious co-morbid conditions. Patients with extremes in muscle mass or diet. The data above are obtained from the National Kidney Disease Education Program (NKDEP) which additionally recommends that when the eGFR is used in patients with extremes of body mass index for purposes of drug dosing, the eGFR should be multiplied by the estimated BMI. [facility] ELECTROLYTES Chloride Lvl 104 meq/L 95 - 109 06/01/2014 [facility] ELECTROLYTES Calcium Lvl 7.8 mg/dL 8.5 - 10.5 06/01/2014 [facility] ELECTROLYTES CO2 23 meq/L 24 - 32 06/01/2014 [facility] ELECTROLYTES Sodium Lvl 136 meq/L 135 - 145 06/01/2014 [facility] ELECTROLYTES Potassium Lvl 4.1 meq/L 3.5 - 5.1 06/01/2014 [facility] ELECTROLYTES BUN 8 mg/dL 7 - 22 06/01/2014 [facility] ELECTROLYTES Glucose Lvl 120 mg/dL 70 - 99 06/01/2014 4Interpretive Data: Adult reference range values reflect the clinical guidelines of the [place] [employer]. [facility] ELECTROLYTES Creatinine Lvl 0.8 mg/dL 0.5 - 1.4 06/01/2014 [facility] HEMATOLOGY Lymphocytes # 0.7 K/CMM 1.0 - 5.5 06/01/2014 [facility] HEMATOLOGY Eosinophils # 0.6 K/CMM 0.0 - 0.5 06/01/2014 [facility] HEMATOLOGY Monocytes # 1.1 K/CMM 0.0 - 0.8 06/01/2014 [facility] Segs-Bands # 12.0 K/CMM 1.5 - 8.1 06/01/2014 [facility] Basophils 0.3 % 0.0 - 1.0 06/01/2014 [facility] Eosinophils 3.9 % 0.0 - 4.0 06/01/2014 [facility] Lymphocytes 4.5 % 20.0 - 40.0 06/01/2014 [facility] Segs 83.4 % 45.0 - 75.0 06/01/2014 [facility] Monocytes 7.9 % 2.0 - 12.0 06/01/2014 [facility] WBC 14.4 K/CMM 3.7 - 10.4 06/01/2014 [facility] Hgb 11.8 g/dL 14.0 - 18.0 06/01/2014 [facility] RBC 3.60 M/CMM 4.70 - 6.10 06/01/2014 [facility] MCHC 33.7 g/dL 32.0 - 36.0 06/01/2014 [facility] MCH 32.8 pg 27.0 - 31.0 06/01/2014 [facility] MCV 97.2 fL 80.0 - 94.0 06/01/2014 [facility] Hct 35.0 % 42.0 - 54.0 06/01/2014 [facility] RDW 13.6 % 11.5 - 14.5 06/01/2014 [facility] Platelet 217 K/CMM 133 - 450 06/01/2014 [facility] MPV 8.4 fL 7.4 - 10.4 06/01/2014 [facility] Abdomen AP view Abdomen AP view ABDOMEN (1 view) HISTORY: Abdominal distention. Comparison is made to 05/30/2014. CT images through the abdomen from a PET CT scan of 04/24/2014 were also reviewed. FINDINGS: The soft tissue outlines and bowel gas pattern are unremarkable. There is no evidence of obstruction or ileus. There are no unusual intra-abdominal calcifications. A tiny triangular calcification just inferior to the left sacroiliac joint appears to represent a vascular calcification when reviewing the images from a PET CT scan. The regional skeleton is unremarkable. CONCLUSION: 1. Benign appearance of the abdomen. Coding: Abdomen 1 view CPT Code: 49802 SL: 13 Javier Shrestha M.D. 06/01/2014 - - Read by: Javier Shrestha MD Dictated Date/time: 06/01/14 09:19 Electronically Signed by: Javier Shrestha MD 06/01/14 09:23 FINAL REPORT [facility] 2 views Chest 2 views PA and LATERAL CHEST (2 views) 06/01/2014. HISTORY: Dyspnea. It is noted the patient underwent video-assisted thorascopic surgery and wedge excision of a right little lobe mass and wedge excision of the right upper lobe on 05/29/2014. Comparison is made to yesterday. Studies of 05/30/2014, 05/29/2014, 05/30/2014, 05/28/2014, 05/28/2014, and the CT images through the chest and report of a PET - CT of 04/24/2014 were reviewed. FINDINGS: 1. No significant change from yesterday. There are post right thoracotomy changes. It is noted the right-sided chest tubes were removed on 05/29/2014. There is no pneumothorax. There is a minimal residual amount of subcutaneous emphysema along the right lateral chest wall. 2. Postoperative change involving the right chest. There is elevation the right hemidiaphragm secondary to volume loss. There are areas of atelectasis within the right lung. A 4.0 cm somewhat rounded opacity projecting over the right lower chest probably represents atelectasis and/or fluid within the fissure. 3. Moderate residual atelectasis in the left lower lobe. The remainder the left lung is clear. 4. Mild cardiomegaly without overt failure. 5. The nasogastric tube has been removed. Coding: Chest 2 views CPT Code: 47963 SL: 13 ([facility] Javier Shrestha M.D. 06/01/2014 - - Read by: Javier Shrestha MD Dictated Date/time: 06/01/14 08:07 Electronically Signed by: Javier Shrestha MD 06/01/14 08:12 FINAL REPORT [facility] CHEM PANEL eGFR 78 mL/min/1.73m2 05/31/2014 2Result Comment: The eGFR is calculated using the CKD-EPI formula. In most young, healthy individuals the eGFR will be >90 mL/min/1.73m2. The eGFR declines with age. An eGFR of 60-89 may be normal in some populations, particularly the elderly, for whom the CKD-EPI formula has not been extensively validated. Use of the eGFR is not recommended in the following populations: Individuals with unstable creatinine concentrations, including patients and those with serious co-morbid conditions. Patients with extremes in muscle mass or diet. The data above are obtained from the National Kidney Disease Education Program (NKDEP) which additionally recommends that when the eGFR is used in patients with extremes of body mass index for purposes of drug dosing, the eGFR should be multiplied by the estimated BMI. [facility] CHEM PANEL Calcium Lvl 7.6 mg/dL 8.5 - 10.5 05/31/2014 [facility] CHEM PANEL Sodium Lvl 138 meq/L 135 - 145 05/31/2014 [facility] CHEM PANEL Potassium Lvl 3.6 meq/L 3.5 - 5.1 05/31/2014 [facility] CHEM PANEL Chloride Lvl 104 meq/L 95 - 109 05/31/2014 [facility] CHEM PANEL CO2 21 meq/L 24 - 32 05/31/2014 [facility] CHEM PANEL Creatinine Lvl 1.0 mg/dL 0.5 - 1.4 05/31/2014 [facility] CHEM PANEL BUN 8 mg/dL 7 - 22 05/31/2014 [facility] CHEM PANEL Glucose Lvl 134 mg/dL 70 - 99 05/31/2014 5Interpretive Data: Adult reference range values reflect the clinical guidelines of the [place] [employer]. [facility] CHEM PANEL AGAP 16.6 meq/L 10.0 - 20.0 05/31/2014 [facility] MCV 96.5 fL 80.0 - 94.0 05/31/2014 [facility] Hgb 12.0 g/dL 14.0 - 18.0 05/31/2014 [facility] WBC 14.9 K/CMM 3.7 - 10.4 05/31/2014 [facility] RBC 3.69 M/CMM 4.70 - 6.10 05/31/2014 [facility] Hct 35.6 % 42.0 - 54.0 05/31/2014 [facility] MCH 32.5 pg 27.0 - 31.0 05/31/2014 [facility] Platelet 186 K/CMM 133 - 450 05/31/2014 [facility] MCHC 33.7 g/dL 32.0 - 36.0 05/31/2014 [facility] RDW 13.4 % 11.5 - 14.5 05/31/2014 [facility] MPV 8.3 fL 7.4 - 10.4 05/31/2014 [facility] Segs 90.0 % 45.0 - 75.0 05/31/2014 [facility] Bands 3.0 % 0.0 - 11.0 05/31/2014 [facility] Monocytes # 0.7 K/CMM 0.0 - 0.8 05/31/2014 [facility] Segs-Bands # 13.9 K/CMM 1.5 - 8.1 05/31/2014 [facility] Lymphocytes # 0.3 K/CMM 1.0 - 5.5 05/31/2014 [facility] Lymphocytes 2.0 % 20.0 - 40.0 05/31/2014 [facility] Tot Cell Ct 100 05/31/2014 [facility] Large Plt Slight 05/31/2014 [facility] RBC Morph Normal (05/31/14 5:11 AM) 05/31/2014 [facility] Atypical Lymphs 0.0 % <=0.0 % 05/31/2014 [facility] Monocytes 5.0 % 2.0 - 12.0 05/31/2014 [facility] Chest 2 views Chest 2 views PA and LATERAL CHEST (2 views) HISTORY: Dyspnea. It is noted the patient underwent video-assisted thorascopic surgery and wedge excision of a right little lobe mass and wedge excision of the right upper lobe on 05/29/2014. Comparison is made to a portable study from yesterday. Studies of 05/29/2014, 05/30/2014, 05/28/2014, 05/28/2014, and the CT images through the chest and report of a PET CT of 04/24/2014 were reviewed. FINDINGS: 1. No significant change from yesterday. There are post right thoracotomy changes. It is noted the right-sided chest tubes were removed on 05/29/2014. There is no pneumothorax. There is a very small residual amount of subcutaneous emphysema along the right lateral chest wall. 2. Postoperative change about the right chest. There is elevation the right hemidiaphragm secondary to volume loss. There are areas of atelectasis within the right lung. A 4.5 cm somewhat rounded opacity projecting over the right lower chest probably represents atelectasis and/or fluid within the fissure. 3. Moderate residual atelectasis in the left lower lobe. The remainder the left lung is clear. 4. Mild cardiomegaly without overt failure. 5. The nasogastric tube extends into the stomach. Coding: Chest 2 views CPT Code: 16929 SL: 13 ([facility]) Javier Shrestha M.D. 05/31/2014 - - Read by: Javier Shrestha MD Dictated Date/time: 05/31/14 09:17 Electronically Signed by: Javier Shrestha MD 05/31/14 09:22 FINAL REPORT [facility] URINE AND STOOL UA RBC 38 /HPF 0 - 2 05/30/2014 [facility] URINE AND STOOL UA Urobilinogen <=1.0 mg/dL 0.1 - 1.0 05/30/2014 [facility] URINE AND STOOL UA Spec Grav 1.024 <=1.030 05/30/2014 [facility] URINE AND STOOL UA Turbidity Clear (05/30/14 9:34 AM) Clear 05/30/2014 [facility] URINE AND STOOL UA Color Yellow *NA* (05/30/14 9:34 AM) Yellow 05/30/2014 [facility] URINE AND STOOL UA Nitrite Negative (05/30/14 9:34 AM) Negative 05/30/2014 [facility] URINE AND STOOL UA Glucose 50 mg/dL Negative mg/dL 05/30/2014 [facility] URINE AND STOOL UA Ketones 20 mg/dL Negative mg/dL 05/30/2014 [facility] URINE AND STOOL UA Bili Negative *NA* (05/30/14 9:34 AM) Negative 05/30/2014 [facility] URINE AND STOOL UA Blood Moderate *ABN* (05/30/14 9:34 AM) Negative 05/30/2014 [facility] URINE AND STOOL UA Protein 30 mg/dL Negative mg/dL 05/30/2014 [facility] URINE AND STOOL UA pH 5.0 5.0 - 8.0 05/30/2014 [facility] URINE AND STOOL UA Sq Epi Occasional /LPF Few /LPF 05/30/2014 [facility] URINE AND STOOL UA Leuk Est Negative (05/30/14 9:34 AM) Negative 05/30/2014 [facility] URINE AND STOOL UA WBC 6 /HPF 0 - 5 05/30/2014 [facility] Abdomen AP view Abdomen AP view EXAM: KUB DATE: 2014-05-30 12:23:00 COMPARISON: KUB dated 05/29/2014. INDICATION: Abdominal distention TECHNIQUE: A single portable AP view of the abdomen is submitted for evaluation. FINDINGS: Nondistended gas filled loops of bowel are seen in the abdomen. Stool is identified in the right colon. No acute skeletal abnormality seen. IMPRESSION: No evidence of bowel obstruction or ileus. SL: 13 05/30/2014 - - Read by: Nickolas Cole MD Dictated Date/time: 05/30/14 12:35 Electronically Signed by: Nickolas Cole MD 05/30/14 12:36 FINAL REPORT [facility] CHEM PANEL Magnesium Lvl 2.1 mg/dL 1.8 - 2.4 05/30/2014 [facility] ELECTROLYTES AGAP 13.9 meq/L 10.0 - 20.0 05/30/2014 [facility] ELECTROLYTES eGFR 62 mL/min/1.73m2 05/30/2014 3Result Comment: The eGFR is calculated using the CKD-EPI formula. In most young, healthy individuals the eGFR will be >90 mL/min/1.73m2. The eGFR declines with age. An eGFR of 60-89 may be normal in some populations, particularly the elderly, for whom the CKD-EPI formula has not been extensively validated. Use of the eGFR is not recommended in the following populations: Individuals with unstable creatinine concentrations, including patients and those with serious co-morbid conditions. Patients with extremes in muscle mass or diet. The data above are obtained from the National Kidney Disease Education Program (NKDEP) which additionally recommends that when the eGFR is used in patients with extremes of body mass index for purposes of drug dosing, the eGFR should be multiplied by the estimated BMI. [facility] ELECTROLYTES Glucose Lvl 143 mg/dL 70 - 99 05/30/2014 6Interpretive Data: Adult reference range values reflect the clinical guidelines of the [place] [employer]. [facility] ELECTROLYTES Sodium Lvl 135 meq/L 135 - 145 05/30/2014 [facility] ELECTROLYTES BUN 10 mg/dL 7 - 22 05/30/2014 [facility] ELECTROLYTES Creatinine Lvl 1.2 mg/dL 0.5 - 1.4 05/30/2014 [facility] ELECTROLYTES Chloride Lvl 105 meq/L 95 - 109 05/30/2014 [facility] ELECTROLYTES Potassium Lvl 3.9 meq/L 3.5 - 5.1 05/30/2014 [facility] ELECTROLYTES CO2 20 meq/L 24 - 32 05/30/2014 [facility] ELECTROLYTES Calcium Lvl 8.2 mg/dL 8.5 - 10.5 05/30/2014 [facility] HEMATOLOGY Hct 38.5 % 42.0 - 54.0 05/30/2014 [facility] Hgb 12.8 g/dL 14.0 - 18.0 05/30/2014 [facility] MCH 32.5 pg 27.0 - 31.0 05/30/2014 [facility] MCV 97.8 fL 80.0 - 94.0 05/30/2014 [facility] MCHC 33.3 g/dL 32.0 - 36.0 05/30/2014 [facility] Platelet 179 K/CMM 133 - 450 05/30/2014 [facility] RDW 13.4 % 11.5 - 14.5 05/30/2014 [facility] MPV 8.7 fL 7.4 - 10.4 05/30/2014 [facility] WBC 13.5 K/CMM 3.7 - 10.4 05/30/2014 [facility] RBC 3.93 M/CMM 4.70 - 6.10 05/30/2014 [facility] Basophils 0.1 % 0.0 - 1.0 05/30/2014 [facility] Lymphocytes # 0.4 K/CMM 1.0 - 5.5 05/30/2014 [facility] Monocytes # 0.6 K/CMM 0.0 - 0.8 05/30/2014 [facility] Segs-Bands # 12.5 K/CMM 1.5 - 8.1 05/30/2014 [facility] RBC Morph Normal (05/30/14 5:05 AM) 05/30/2014 [facility] Plt Morph Normal (05/30/14 5:05 AM) 05/30/2014 [facility] Segs 92.5 % 45.0 - 75.0 05/30/2014 [facility] Lymphocytes 3.2 % 20.0 - 40.0 05/30/2014 [facility] Monocytes 4.1 % 2.0 - 12.0 05/30/2014 [facility] Eosinophils 0.1 % 0.0 - 4.0 05/30/2014 [facility] Chest 1view Chest 1view PORTABLE CHEST 05/30/2014 AT 0715 HOURS. INDICATION: Post thoracotomy. COMPARISON: Chest 1704 hours. The image is underexposed and the lungs incompletely inflated. No pneumothorax is evident. Stable postoperative changes are noted in the right hemithorax. There is probable minor atelectasis at the left lung base. The cardiac silhouette is at least top normal in size. SL: 05/30/2014 - - Read by: Tripp Tidwell MD Dictated Date/time: 05/30/14 07:27 Electronically Signed by: Tripp Tidwell MD 05/30/14 07:28 FINAL REPORT [facility] Chest 2 views Chest 2 views PROCEDURE: Chest 2 views REASON FOR EXAM: See Clinic Indication CLINICAL INDICATION: Tube placement/removal/reposition COMPARISON: 07:30. FINDINGS: Interval removal of right chest tube. No significant pneumothorax visualized. Recent postoperative right thoracotomy and right lower lobe resection. More prominent density within the right lower lobe resection cavity may represent hemorrhage. No change of the right superhilar adenopathy. Mild left basilar atelectasis. SL: 05/29/2014 - - Read by: Graham Morrow MD Dictated Date/time: 05/29/14 17:15 Electronically Signed by: Graham Morrow MD 05/29/14 17:17 FINAL REPORT [facility] Abdomen AP view Abdomen AP view PROCEDURE: Abdomen 1 view REASON FOR EXAM: See Clinic Indication CLINICAL INDICATION: Abdominal distension COMPARISON: None. FINDINGS: Nonspecific bowel gas pattern is present. No definite free air. Right lower lobe round density likely representing hemorrhage within the resection cavity per recent surgical history. SL: 05/29/2014 - - Read by: Graham Morrow MD Dictated Date/time: 05/29/14 17:18 Electronically Signed by: Graham Morrow MD 05/29/14 17:19 FINAL REPORT [facility] CHEM PANEL Magnesium Lvl 1.9 mg/dL 1.8 - 2.4 05/29/2014 [facility] CHEM PANEL Alk Phos 45 unit/L 39 - 136 05/29/2014 [facility] CHEM PANEL AST 44 unit/L 0 - 37 05/29/2014 [facility] CHEM PANEL Bili Total 0.9 mg/dL 0.2 - 1.3 05/29/2014 [facility] CHEM PANEL Globulin 3.3 g/dL 2.0 - 4.0 05/29/2014 [facility] CHEM PANEL A/G Ratio 1.0 0.7 - 1.6 05/29/2014 [facility] CHEM PANEL Albumin Lvl 3.2 g/dL 3.5 - 5.0 05/29/2014 [facility] CHEM PANEL ALT 48 unit/L 0 - 65 05/29/2014 [facility] CHEM PANEL Total Protein 6.5 g/dL 6.4 - 8.4 05/29/2014 [facility] CHEM PANEL B/C Ratio 10 6 - 25 05/29/2014 [facility] HEMATOLOGY Eosinophils # 0.1 K/CMM 0.0 - 0.5 05/29/2014 [facility] HEMATOLOGY Eosinophils 0.4 % 0.0 - 4.0 05/29/2014 [facility] HEMATOLOGY Basophils 0.2 % 0.0 - 1.0 05/29/2014 [facility] Chest 2 views Chest 2 views ADDENDUM: The round mass at the base of the right hemithorax is different than the mass which was apparently resected. This may represent a post operative fluid collection. The right paratracheal opacity has developed since the exam from 05/26/2014, and as is likely postoperative change rather than adenopathy. SL: 12 CHEST, PA AND LATERAL 05/29/2014. INDICATION: Chest tube, lung mass. COMPARISON: Chest 05/26/2014. The large caliber right chest tube remains in position. No pneumothorax is evident. The rounded mass at the right lung base is unchanged, as is apparent mediastinal adenopathy. Left lung demonstrates minor interstitial scarring. The cardiac silhouette is slightly enlarged. Aortic atherosclerosis is noted. No significant change has occurred. SL: 12 05/29/2014 - - Read by: Tripp Tidwell MD Dictated Date/time: 05/29/14 09:32 Electronically Signed by: Tripp Tidwell MD 05/29/14 09:36 FINAL REPORT - - Read by: Tripp Tidwell MD Dictated Date/time: 05/29/14 07:42 Electronically Signed by: Tripp Tidwell MD 05/29/14 07:44 FINAL REPORT [facility] Chest 1view Chest 1view CHEST SINGLE VIEW (PORTABLE AP): HX: Tube placement/removal/reposition COMPARISON: 05/28/2014 at 11: 05 FINDINGS: A right-sided intercostal tube is in position. There is a rounded mass in the right lower lung measuring approximately 3.2 cm in diameter which is unchanged from prior exam. Paratracheal soft tissue density on the right is diminished from the previous study. Cardiac silhouette is stable. The patient is taking a shallow inspiration. There is no evidence of pneumothorax. The visualized osseous structures are grossly normal. IMPRESSION: 1. Mild decreased paratracheal soft tissue density in the medial aspect of the right upper lung. 2. Rounded opacity in the right lower lung unchanged from previous exam. 3. Right-sided intercostal tube remains in satisfactory position. SL: 12 05/28/2014 - - Read by: Clay Hilton MD Dictated Date/time: 05/28/14 20:05 Electronically Signed by: Clay Hilton MD 05/28/14 20:06 FINAL REPORT [facility] Chest 1view Chest 1view PROCEDURE: Chest 1view REASON FOR EXAM: See Clinic Indication CLINICAL INDICATION: Line Placement COMPARISON: 05/26/2014. FINDINGS: Interval postoperative presumed thoracotomy and probable resection of the right lower lobe mass with hazy opacity may represent hemorrhage given history of recent surgery. Right chest tube is present extending toward the lung apex. No significant pneumothorax visualized. New right IJ line is present with its tip at the a.c. junction. SL: 05/28/2014 - - Read by: Graham Morrow MD Dictated Date/time: 05/28/14 11:37 Electronically Signed by: Graham Morrow MD 05/28/14 11:38 FINAL REPORT [facility] URINE AND STOOL UA Urobilinogen <=1.0 mg/dL 0.1 - 1.0 05/26/2014 [facility] URINE AND STOOL UA Color Ltyellow 05/26/2014 [facility] URINE AND STOOL UA Glucose Negative mg/dL Negative mg/dL 05/26/2014 [facility] URINE AND STOOL UA Ketones Negative mg/dL Negative mg/dL 05/26/2014 [facility] URINE AND STOOL UA Bili Negative *NA* (05/26/14 12:21 PM) Negative 05/26/2014 [facility] URINE AND STOOL UA RBC 1 /HPF 0 - 2 05/26/2014 [facility] URINE AND STOOL UA Blood Negative (05/26/14 12:21 PM) Negative 05/26/2014 [facility] URINE AND STOOL UA Nitrite Negative (05/26/14 12:21 PM) Negative 05/26/2014 [facility] URINE AND STOOL UA Leuk Est Moderate *ABN* (05/26/14 12:21 PM) Negative 05/26/2014 [facility] URINE AND STOOL UA WBC 21 /HPF 0 - 5 05/26/2014 [facility] URINE AND STOOL UA Sq Epi None Seen 05/26/2014 [facility] URINE AND STOOL UA Protein Negative mg/dL Negative mg/dL 05/26/2014 [facility] URINE AND STOOL UA Turbidity Clear (05/26/14 12:21 PM) Clear 05/26/2014 [facility] URINE AND STOOL UA Spec Grav 1.006 <=1.030 05/26/2014 [facility] URINE AND STOOL UA pH 7.0 5.0 - 8.0 05/26/2014 [facility] BLOOD BANK RESULTS ABO/Rh O POS 05/26/2014 [facility] BLOOD BANK RESULTS Antibody Scrn Negative (05/26/14 12:00 PM) 05/26/2014 [facility] BLOOD BANK RESULTS RBC product Product available (05/26/14 12:00 PM) 05/26/2014 [facility] CHEM PANEL Bili Total 0.8 mg/dL 0.2 - 1.3 05/26/2014 [facility] CHEM PANEL Total Protein 8.1 g/dL 6.4 - 8.4 05/26/2014 [facility] CHEM PANEL Alk Phos 73 unit/L 39 - 136 05/26/2014 [facility] CHEM PANEL ALT 44 unit/L 0 - 65 05/26/2014 [facility] CHEM PANEL Albumin Lvl 4.1 g/dL 3.5 - 5.0 05/26/2014 [facility] CHEM PANEL AST 43 unit/L 0 - 37 05/26/2014 [facility] CHEM PANEL A/G Ratio 1.0 0.7 - 1.6 05/26/2014 [facility] CHEM PANEL B/C Ratio 11 6 - 25 05/26/2014 [facility] CHEM PANEL Globulin 4.0 g/dL 2.0 - 4.0 05/26/2014 [facility] HEMATOLOGY Eosinophils # 0.2 K/CMM 0.0 - 0.5 05/26/2014 [facility] HEMATOLOGY PT 12.9 s 12.0 - 14.7 05/26/2014 [facility] HEMATOLOGY PTT 32.8 s 22.9 - 35.8 05/26/2014 8Interpretive Data: Heparin Therapeutic Range: 57 - 92 Seconds [facility] HEMATOLOGY INR 0.98 0.85 - 1.17 05/26/2014 7Interpretive Data: RECOMMENDED RANGES FOR PROTIME INR: 2.0-3.0 for most medical and surgical thromboembolic states. 2.5-3.5 for artificial heart valves and recurrent embolism. INR SHOULD BE USED ONLY FOR PATIENTS ON STABLE ANTICOAGULANT THERAPY. [facility] Chest 2 views Chest 2 views Chest 2 views, May 26, 2014 12:02:00 PM CLINICAL HISTORY: Coughing ; See Clinic Indication TECHNIQUE: Routine PA and lateral views of the chest were obtained. COMPARISON: CT 04/24/2014 FINDINGS: Right middle lobe roughly 3 cm mass is present. Otherwise, remaining lungs are clear. No pleural effusion or pneumothorax is present. Cardiomediastinal silhouette is normal. Bones are unremarkable. IMPRESSION: No acute abnormality of chest. Right middle lobe roughly 3 cm known mass. SL: 14 05/26/2014 - - Read by: Saad Ennis MD Dictated Date/time: 05/26/14 12:14 Electronically Signed by: Saad Ennis MD 05/26/14 12:15 FINAL REPORT [facility] Vital Signs Vital Sign Value Date Comments Source Systolic (mm Hg) 150 08/03/2014 [facility] Diastolic (mm Hg) 84 08/03/2014 [facility] Heart Rate 73 08/03/2014 [facility] Respitory Rate 18 08/03/2014 [facility] Temperature Oral (F) 97.6 F 08/03/2014 [facility] Respitory Rate 18 08/03/2014 [facility] Systolic (mm Hg) 144 08/03/2014 [facility] Heart Rate 65 08/03/2014 [facility] Diastolic (mm Hg) 80 08/03/2014 [facility] Temperature Oral (F) 98.1 F 08/03/2014 [facility] Respitory Rate 18 08/03/2014 [facility] Temperature Oral (F) 98.2 F 08/03/2014 [facility] Heart Rate 71 08/03/2014 [facility] Diastolic (mm Hg) 86 08/03/2014 [facility] Systolic (mm Hg) 143 08/03/2014 [facility] Height 177.8 cm 07/28/2014 [facility] BMI Calculated 24.16 07/28/2014 [facility] Weight 76.364 07/28/2014 [facility] Weight 75 06/30/2014 [facility] Height 177.8 cm 06/30/2014 [facility] BMI Calculated 23.72 06/30/2014 [facility] Heart Rate 87 06/01/2014 [facility] Temperature Oral (F) 98.8 F 06/01/2014 [facility] Diastolic (mm Hg) 89 06/01/2014 [facility] Respitory Rate 18 06/01/2014 [facility] Systolic (mm Hg) 157 06/01/2014 [facility] Systolic (mm Hg) 160 06/01/2014 [facility] Heart Rate 89 06/01/2014 [facility] Respitory Rate 18 06/01/2014 [facility] Temperature Oral (F) 98.5 F 06/01/2014 [facility] Diastolic (mm Hg) 75 06/01/2014 [facility] Respitory Rate 18 06/01/2014 [facility] Systolic (mm Hg) 153 06/01/2014 [facility] Diastolic (mm Hg) 66 06/01/2014 [facility] Heart Rate 98 06/01/2014 [facility] Temperature Oral (F) 99.6 F 06/01/2014 [facility] Weight 80 05/28/2014 [facility] BMI Calculated 25.31 05/28/2014 [facility] Height 177.8 cm 05/28/2014 [facility] BMI Calculated 25.02 05/26/2014 [facility] Weight 79.091 05/26/2014 [facility] Height 177.8 cm 05/26/2014 [facility] Encounters Location Location Details Encounter Type Encounter Number Reason For Visit Attending Provider ADM Date DC Date Status Source [facility] Outpatient [id number] Joseph Holman 04/24/2014 04/25/2014 [facility] Inpatient [id number] Caroline Beyer 05/28/2014 06/01/2014 [facility] Outpatient [id number] [facility] 06/09/2014 06/10/2014 [facility] Outpatient [id number] [facility] 06/25/2014 06/26/2014 [facility] Outpatient [id number] [facility] 06/30/2014 07/01/2014 [facility] Inpatient [id number] Bernabe Ryan 07/30/2014 08/03/2014 [facility] Outpatient [id number] [facility] 08/11/2014 08/12/2014 [facility] Outpatient [id number] [facility] 09/01/2014 09/02/2014 [facility] [place] [facility] [id number] Kusum Edward 12/08/2018 12/09/2018 [facility] Procedures Procedure Code Date Perfomer Comments Source Partial lobectomy of lung<sup>1</sup> 087748892 05/28/2014 1right side [facility] Partial lobectomy of lung<sup>1</sup> [id number] 05/28/2014 right side [facility] Bronchoscopy [id number] [facility] Bronchoscopy [id number] [facility] Grimes
--- OUTSIDE RECORDS SUMMARY | 2018-12-18 23:08 | XMS REPORT | Summary of Care ---
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
--- OUTSIDE RECORDS SUMMARY | 2018-12-18 23:09 | XMS REPORT | Summary of Care ---
Author Organization Unknown Address Unknown Phone Unavailable Encounter HQ Yara_mariah(TRUDY) [id number] Date(s): 07/30/14 - 08/03/14 [facility] [address] [address] Discharge Disposition: Home Physician Attending: Bernabe Ryan MD Physician Admitting: Bernabe Ryan MD Physician_Referring: Christelle Corrigan MD Reason for Visit [id number] Vital Signs 1 2 3 Most recent to oldest [Reference Range]: 177.8 cm (07/28/14 10:44 AM) Height 97.6 DegF (08/03/14 11:54 AM) 98.1 DegF (08/03/14 8:06 AM) 98.2 DegF (08/03/14 4:00 AM) Temperature Oral [96.4-99.1 DegF] 150 mmHg *HI* (08/03/14 11:54 AM) 144 mmHg *HI* (08/03/14 8:06 AM) 143 mmHg *HI* (08/03/14 4:00 AM) Systolic Blood Pressure [90-140 mmHg] 84 mmHg (08/03/14 11:54 AM) 80 mmHg (08/03/14 8:06 AM) 86 mmHg (08/03/14 4:00 AM) Diastolic Blood Pressure [60-90 mmHg] 18 BRMIN (08/03/14 11:54 AM) 18 BRMIN (08/03/14 8:06 AM) 18 BRMIN (08/03/14 7:40 AM) Respiratory Rate [14-20 BRMIN] 73 bpm (08/03/14 11:54 AM) 65 bpm (08/03/14 8:06 AM) 71 bpm (08/03/14 4:00 AM) Peripheral Pulse Rate [60-100 bpm] 76.364 kg (07/28/14 10:44 AM) Weight 24.16 m2 (07/28/14 10:44 AM) Body Mass Index Problem List Condition Effective Dates Status Health Status Informant Cholesterol Resolved level(Confirmed)1 Hypertension(Confirm Resolved ed) Mass(Confirmed)2 Resolved Neck pain(Confirmed) Resolved Reflux(Confirmed) Resolved 1high 2lung Allergies, Adverse Reactions, Alerts Substance Reaction Severity Status lisinopril Active penicillins Facial swelling Active Medications acetaminophen-codeine #3 2 tab, Route: PO, Drug Form: TAB, Dosing Weight 76.364, kg, Q4H, PRN Pain Score 4-6, Start date: 08/02/14 7:16:00, Duration: 30 day, Stop date: 09/01/14 7:15:00 Notes: Do not exceed 4gm/day of acetaminophen. (Same as: Tylenol with Codeine # 3) Start Date: 08/02/14 Stop Date: 08/03/14 Status: Discontinued albuterol 0.083% inhalation solution 2.49 mg, 3 mL, Route: NEB, Drug form: SOLN, RQ4H, Dosing Weight 76.364, kg, Star t date: 07/30/14 15:00:00, Duration: 30 day, Stop date: 08/29/14 11:00:00 Notes: SEE RT DOCUMENTATION (Same as: Tiffanie) Start Date: 07/30/14 Stop Date: 08/03/14 Status: Discontinued albuterol 90 mcg/inh inhalation aerosol 180 microgram=2 puff, INHALER, Q6H, # 1 spray, 0 Refill(s) Start Date: 08/03/14 Status: Ordered albuterol 90 mcg/inh inhalation aerosol 2 puff, Route: INHALER, Drug Form: AERO/A, Dosing Weight 76.364, kg, Q6H, Start date: 08/03/14 18:00:00, Duration: 30 day, Stop date: 09/02/14 12:00:00 Notes: Albuterol 90 microgram/inh 8gm HFA Same as: Tiffanie Randhawa Start Date: 08/03/14 Stop Date: 08/03/14 Status: Discontinued amLODIPine 10 mg, 2 tab, Route: PO, Drug form: TAB, Daily, Dosing Weight 76.364, kg, Start date: 08/01/14 9:00:00, Duration: 30 day, Stop date: 08/30/14 9:00:00 Notes: (Same as: Jatinder) Start Date: 08/01/14 Stop Date: 08/03/14 Status: Discontinued aspirin 325 mg tablet, enteric coated 325 mg, 1 tab, Route: PO, Drug form: ECTAB, Daily, Dosing Weight 76.364, kg, Analisa ority: NOW, Start date: 08/02/14 20:17:00, Duration: 30 day, Stop date: 08/31/14 9:00:00 Notes: (Do Not Crush) Do not crush or chew. Start Date: 08/02/14 Stop Date: 08/03/14 Status: Discontinued atropine 0.5 mg, 5 mL, Route: IVP, Drug form: INJ, PRN, PRN Bradycardia, Start date: 07/08 01/18 19:13:00, Duration: 30 day, Stop date: 08/29/14 18:12:00 Start Date: 07/30/14 Stop Date: 08/03/14 Status: Discontinued calcium carbonate 1250 mg (500 mg elemental calcium) oral tablet 1,000 mg, 2 tab, Route: PO, Drug form: TAB, BID, Dosing Weight 76.364, kg, Start date: 07/31/14 17:00:00, Duration: 30 day, Stop date: 08/30/14 9:00:00 Notes: 500mg elemental [id number] calcium carbonate. Contains 500mg element al calcium. (Same As: OsCal 500) Start Date: 07/31/14 Stop Date: 08/03/14 Status: Discontinued doxazosin 8 mg, 2 tab, Route: PO, Drug form: TAB, Bedtime, Dosing Weight 76.364, kg, Start date: 07/31/14 23:00:00, Duration: 30 day, Stop date: 08/30/14 21:00:00 Notes: (Same as: Dee) Start Date: 07/31/14 Stop Date: 08/03/14 Status: Discontinued Dulcolax Laxative 10 mg, 1 supp, Route: OK, Drug form: SUPP, Daily, Dosing Weight 76.364, kg, PRN Constipation, Priority: STAT, Start date: 07/31/14 18:32:00, Duration: 30 day, S top date: 08/30/14 18:31:00 Notes: (Same As: Dulcolax, Bisco-Lax) Start Date: 07/31/14 Stop Date: 08/03/14 Status: Discontinued fentaNYL 25 microgram, 0.5 mL, Route: IVP, Drug form: INJ, Q5Min, Dosing Weight 76.364, k g, PRN Pain Score 4-6, Start date: 07/30/14 14:35:00, Duration: 4 doses or times , Stop date: Limited # of times Notes: (Same as: Sublimaze) Preservative free. Start Date: 07/30/14 Stop Date: 07/30/14 Status: Discontinued flumazenil 0.2 mg, 2 mL, Route: IVP, Drug form: INJ, PRN, Dosing Weight 76.364, kg, PRN Ramiro zodiazepine Reversal, Initial dose, Start date: 07/30/14 14:35:00, Duration: 30 day, Stop date: 08/29/14 13:34:00 Notes: (Same as: Romazicon) Start Date: 07/30/14 Stop Date: 07/30/14 Status: Discontinued heparin 5,000 unit, 1 mL, Route: SUB-Q, Drug form: INJ, [id number], Dosing Weight 76.364, k g, Start date: 07/31/14 8:00:00, Duration: 30 day, Stop date: 08/29/14 20:00:00 Notes: porcine heparin Start Date: 07/31/14 Stop Date: 08/03/14 Status: Discontinued heparin 5000 units/mL injectable solution 5,000 unit, Route: SUB-Q, Drug form: INJ, ONCE, Dosing Weight 76.364, kg, Start date: 07/30/14 8:01:00, Stop date: 07/30/14 8:01:00 Start Date: 07/30/14 Stop Date: 07/30/14 Status: Completed HYDROmorphone 0.5mg/mL METAL FENCE ERECTOR (15mg/30 mL) 15 mg 15 mg, 30 mL, Route: IV, Initial Loading Dose: 0 mg, METAL FENCE ERECTOR Dose: 0.2 mg, METAL FENCE ERECTOR Locko ut: 15 minutes, Continuous Basal Rate: 0 mg, 4 Hour Limit (In MG): 3.2, Drug For m: INJ, Continuous, Start date: 07/30/14 15:00:00, Duration: 30 day, Stop date: 08/29/14 13... Notes: (Same as: Dilaudid) conc=0.5 mg/mlHydromorphone METAL FENCE ERECTOR Dose: ;Delay: ;Basal: Start Date: 07/30/14 Stop Date: 08/02/14 Status: Discontinued Lactated Ringers Injection IV 1000 mL 1,000 mL, Rate: 25 ml/hr, Infuse over: 40 hr, Route: IV, Dosing Weight 76.364 kg , Total Volume: 1,000, Start date: 07/30/14 7:59:00, Duration: 30 day, Stop date : 08/29/14 7:58:00 Start Date: 07/30/14 Stop Date: 07/30/14 Status: Discontinued lansoprazole 15 mg, Route: PO, Drug form: ECCAP, Before Breakfast, Dosing Weight 76.364, kg, Start date: 07/31/14 7:30:00, Duration: 30 day, Stop date: 08/29/14 7:30:00 Start Date: 07/31/14 Stop Date: 07/31/14 Status: Deleted Levaquin 500 mg, 100 mL, Route: IVPB, Drug form: INJ, [id number], Start date: 07/31/14 5:00: 00, Duration: 30 day, Stop date: 08/29/14 5:00:00 Notes: (Same as:Levaquin) Start Date: 07/31/14 Stop Date: 08/03/14 Status: Discontinued Levaquin 500 mg, Route: IV, ONCE, Dosing Weight 76.364, kg, Start date: 07/30/14 8:01:00, Stop date: 07/30/14 8:01:00 Start Date: 07/30/14 Stop Date: 07/30/14 Status: Completed levofloxacin 500 mg, Route: IVPB, [id number], Dosing Weight 76.364, kg, Start date: 07/30/14 14: 00:00, Duration: 30 day, Stop date: 08/28/14 14:00:00 Start Date: 07/30/14 Stop Date: 07/30/14 Status: Discontinued losartan 100 mg, 2 tab, Route: PO, Drug form: TAB, Daily, Dosing Weight 76.364, kg, Start date: 08/01/14 9:00:00, Duration: 30 day, Stop date: 08/30/14 9:00:00 Notes: (Same as: Gianna) Start Date: 08/01/14 Stop Date: 08/03/14 Status: Discontinued magnesium sulfate 2 gm, 50 mL, Route: IVPB, Drug form: INJ, ONCE, Dosing Weight 76.364, kg, Total dose=2 gm, Start date: 07/30/14 15:12:00, Duration: 1 doses or times, Stop date: 07/30/14 15:12:00 Start Date: 07/30/14 Stop Date: 07/30/14 Status: Deleted magnesium sulfate 2 gm, 50 mL, Route: IVPB, Drug form: INJ, Q2H, Dosing Weight 76.364, kg, Total d ose=4 gm, Priority: NOW, Start date: 07/30/14 17:09:00, Duration: 2 doses or priscilla es, Stop date: 07/30/14 20:00:00 Start Date: 07/30/14 Stop Date: 07/30/14 Status: Completed meperidine 12.5 mg, 0.25 mL, Route: IVP, Drug form: INJ, Q30Min, Dosing Weight 76.364, kg, PRN Other -See Comment, For shivering, Start date: 07/30/14 14:35:00, Duration: 2 doses or times, Stop date: Limited # of times Notes: (Same As: Demerol) Start Date: 07/30/14 Stop Date: 07/30/14 Status: Discontinued morphine Sulfate 2 mg, 1 mL, Route: IVP, Drug form: INJ, Q5Min, Dosing Weight 76.364, kg, PRN Lisbeth n Score 4-6, Start date: 07/30/14 14:35:00, Duration: 5 doses or times, Stop yeison e: Limited # of times Notes: (Same as:MORPhine Sulfate) Start Date: 07/30/14 Stop Date: 07/30/14 Status: Discontinued naloxone 0.04 mg, 0.1 mL, Route: IVP, Drug form: INJ, Q2MIN, Dosing Weight 76.364, kg, OK N Narcotic Reversal, Start date: 07/30/14 14:34:00, Duration: 30 day, Stop date: 08/29/14 13:33:00 Notes: Same as Narcan Start Date: 07/30/14 Stop Date: 08/03/14 Status: Discontinued naloxone 0.04 mg, 0.1 mL, Route: IVP, Drug form: INJ, Q2MIN, Dosing Weight 76.364, kg, OK N Narcotic Reversal, Start date: 07/30/14 14:35:00, Duration: 8 doses or times, Stop date: Limited # of times Notes: Same as Narcan Start Date: 07/30/14 Stop Date: 07/30/14 Status: Discontinued nitroglycerin 0.4 mg sublingual tablet 0.4 mg, 1 tab, Route: SL, Drug form: TAB, Q5Min, PRN Chest Pain, Start date: 19:13:00, Duration: 30 day, Stop date: 08/29/14 18:12:00 Notes: (Same as:Nitroquick, Nitrostat)"Do Not Crush" Sublingual tablet Start Date: 07/30/14 Stop Date: 08/03/14 Status: Discontinued NS (Bolus) IV 500 mL, 0 ml/hr, Infuse Over: 0 hr, Route: IV, 500, Drug form: INJ, ONCE, Dosing Weight 76.364 kg, Start date: 07/31/14 6:03:00, Stop date: 07/31/14 6:03:00 Start Date: 07/31/14 Stop Date: 07/31/14 Status: Completed ondansetron 4 mg, Route: IVP, ONCE, Dosing Weight 76.364, kg, PRN Nausea & Vomiting, Start date: 07/30/14 14:35:00 Start Date: 07/30/14 Stop Date: 07/30/14 Status: Completed pravastatin 20 mg, 1 tab, Route: PO, Drug form: TAB, Bedtime, Dosing Weight 76.364, kg, Star t date: 07/31/14 21:00:00, Duration: 30 day, Stop date: 08/29/14 21:00:00 Notes: (Same as: Pravachol) Start Date: 07/31/14 Stop Date: 08/03/14 Status: Discontinued Protonix 40 mg, 1 tab, Route: PO, Drug form: ECTAB, Before Breakfast, Start date: 4 7:30:00, Duration: 30 day, Stop date: 08/29/14 7:30:00 Notes: Tablet should not be chewed or crushed.(Same as: Protonix) Start Date: 07/31/14 Stop Date: 08/03/14 Status: Discontinued Robinul 0.2 mg, Route: IV, ONCE, Dosing Weight 76.364, kg, Start date: 07/30/14 15:42:00 , Stop date: 07/30/14 15:42:00 Start Date: 07/30/14 Stop Date: 07/30/14 Status: Completed Silvadene 1% topical cream 1 appl, Route: TOP, BID, Drug form: CRM, Start date: 08/01/14 17:00:00, Duration : 30 day, Stop date: 08/31/14 9:00:00 Notes: (Same as: Silvadene) Start Date: 08/01/14 Stop Date: 08/03/14 Status: Discontinued Sodium Chloride 0.9% IV 1000 mL 1,000 mL, Rate: 30 ml/hr, Infuse over: 33.3 hr, Route: IV, Dosing Weight 76.364 kg, Total Volume: 1,000, Start date: 07/30/14 13:50:00, Duration: 30 day, Stop d ate: 08/29/14 13:49:00 Start Date: 07/30/14 Stop Date: 08/02/14 Status: Discontinued Results BLOOD BANK RESULTS 1 2 3 Most recent to oldest [Reference Range]: O POS *Unknown* (07/28/14 11:45 AM) ABO/Rh Negative (07/28/14 11:45 AM) Antibody Scrn Product available (07/28/14 11:45 AM) FFP product Product available (07/28/14 11:45 AM) Platelet product Product available 1 (07/28/14 11:45 AM) RBC product 1Result Comment: 07/30/2014 05:01 [id number] preadmit pt/mdj ELECTROLYTES 1 2 3 Most recent to oldest [Reference Range]: 139 mEq/L (08/03/14 7:24 AM) 134 mEq/L *LOW* (08/02/14 5:11 AM) 133 mEq/L *LOW* (08/01/14 4:37 AM) Sodium Lvl [135-145 mEq/L] 3.9 mEq/L (08/03/14 7:24 AM) 4.3 mEq/L (08/02/14 5:11 AM) 4.5 mEq/L (08/01/14 4:37 AM) Potassium Lvl [3.5-5.1 mEq/L] 102 mEq/L (08/03/14 7:24 AM) 101 mEq/L (08/02/14 5:11 AM) 101 mEq/L (08/01/14 4:37 AM) Chloride Lvl [95-109 mEq/L] 29 mEq/L (08/03/14 7:24 AM) 23 mEq/L *LOW* (08/02/14 5:11 AM) 22 mEq/L *LOW* (08/01/14 4:37 AM) CO2 [24-32 mEq/L] 11.9 mEq/L (08/03/14 7:24 AM) 14.3 mEq/L (08/02/14 5:11 AM) 14.5 mEq/L (08/01/14 4:37 AM) AGAP [10.0-20.0 mEq/L] CHEM PANEL 1 2 3 Most recent to oldest [Reference Range]: 1.0 mg/dL (08/03/14 7:24 AM) 0.9 mg/dL (08/02/14 5:11 AM) 1.2 mg/dL (08/01/14 4:37 AM) Creatinine Lvl [0.5-1.4 mg/dL] 78 mL/min/1.73m2 2 *NA* (08/03/14 7:24 AM) 88 mL/min/1.73m2 3 *NA* (08/02/14 5:11 AM) 62 mL/min/1.73m2 4 *NA* (08/01/14 4:37 AM) eGFR 4 mg/dL *LOW* (08/03/14 7:24 AM) 5 mg/dL *LOW* (08/02/14 5:11 AM) 10 mg/dL (08/01/14 4:37 AM) BUN [7-22 mg/dL] 12 (07/31/14 4:00 AM) 15 (07/28/14 11:45 AM) B/C Ratio [6-25] 114 mg/dL 5 *HI* (08/03/14 7:24 AM) 124 mg/dL 6 *HI* (08/02/14 5:11 AM) 129 mg/dL 7 *HI* (08/01/14 4:37 AM) Glucose Lvl [70-99 mg/dL] 5.5 g/dL *LOW* (07/31/14 4:00 AM) 8.1 g/dL (07/28/14 11:45 AM) Total Protein [6.4-8.4 g/dL] 2.9 g/dL *LOW* (07/31/14 4:00 AM) 4.2 g/dL (07/28/14 11:45 AM) Albumin Lvl [3.5-5.0 g/dL] 2.6 g/dL (07/31/14 4:00 AM) 3.9 g/dL (07/28/14 11:45 AM) Globulin [2.0-4.0 g/dL] 1.1 (07/31/14 4:00 AM) 1.1 (07/28/14 11:45 AM) A/G Ratio [0.7-1.6] 8.6 mg/dL (08/03/14 7:24 AM) 8.1 mg/dL *LOW* (08/02/14 5:11 AM) 7.5 mg/dL *LOW* (08/01/14 4:37 AM) Calcium Lvl [8.5-10.5 mg/dL] 3.6 mg/dL (07/30/14 10:35 PM) Phosphorus [2.5-4.5 mg/dL] 2.0 mg/dL (08/03/14 7:24 AM) 2.1 mg/dL (08/02/14 5:11 AM) 2.4 mg/dL (07/31/14 4:00 AM) Magnesium Lvl [1.8-2.4 mg/dL] 21 unit/L (07/31/14 4:00 AM) 23 unit/L (07/28/14 11:45 AM) ALT [0-65 unit/L] 36 unit/L (07/31/14 4:00 AM) 18 unit/L (07/28/14 11:45 AM) AST [0-37 unit/L] 40 unit/L (07/31/14 4:00 AM) 78 unit/L (07/28/14 11:45 AM) Alk Phos [39-136 unit/L] 0.7 mg/dL (07/31/14 4:00 AM) 0.5 mg/dL (07/28/14 11:45 AM) Bili Total [0.2-1.3 mg/dL] 21 pg/mL *NA* (07/31/14 4:00 AM) Vitamin D 1,25 (OH)2 Total [18-72 pg/mL] 15 ng/mL 8 *LOW* (07/31/14 4:00 AM) Vitamin D, 25-OH, Total [30-100 ng/mL] < 8 pg/mL 9 *NA* (07/31/14 4:00 AM) Vitamin D2 1,25 (OH)2 21 pg/mL *NA* (07/31/14 4:00 AM) Vitamin D3 1,25 (OH)2 2Result Comment: The eGFR is calculated using [...] from the National Kidney Disease Education Program ( NKDEP) which additionally recommends that when the eGFR is used in patients with extremes of body mass index for purposes of drug dosing, the eGFR should be mul tiplied by the estimated BMI. 3Result Comment: The eGFR is calculated using [...] from the National Kidney Disease Education Program ( NKDEP) which additionally recommends that when the eGFR is used in patients with extremes of body mass index for purposes of drug dosing, the eGFR should be mul tiplied by the estimated BMI. 4Result Comment: The eGFR is calculated using [...] from the National Kidney Disease Education Program ( NKDEP) which additionally recommends that when the eGFR is used in patients with extremes of body mass index for purposes of drug dosing, the eGFR should be mul tiplied by the estimated BMI. 5Interpretive Data: Adult reference range values reflect the clinical guidelines of the [place] [employer]. 6Interpretive Data: Adult reference range values reflect the clinical guidelines of the [place] [employer]. 7Interpretive Data: Adult reference range values reflect the clinical guidelines of the [place] [employer]. 8Interpretive Data: Reference range is based on recommendations in the Endocrine Society Clinical Practice Guideline (J Clin Endocrinol Metab 2011;96:9596-5056) 9Result Comment: Vitamin D2, 1,25 (OH)2: Reference ranges are established for total 1,25-dihydroxy vitamin D. Values for subcomponents D2 (derived from plant or fungal sources) and D3 (derived from human or animal sources) are provided for informational purposes only. This test(s) was developed and its performance characteristics have been determined by [facility], [place], [place]. Performance characteristics refer to the analytical performance of the test. Test Performed at: [employer] [facility], [address] [place] [place] [id number] M Deonna Black MD, FCAP PARATHYROID PROFILE 1 2 3 Most recent to oldest [Reference Range]: 1.04 mMol/L *LOW* (07/30/14 10:35 PM) Ca Ion WB [1.05-1.25 mMol/L] 1.00 mMol/L *LOW* (07/30/14 10:35 PM) Ca Norm WB [1.05-1.25 mMol/L] 91.6 pg/mL *HI* (07/30/14 10:35 PM) PTH Intact [11.1-79.5 pg/mL] URINE AND STOOL 1 2 3 Most recent to oldest [Reference Range]: Clear (07/28/14 12:11 PM) UA Turbidity [Clear] Ltyellow *NA* (07/28/14 12:11 PM) UA Color 6.0 (07/28/14 12:11 PM) UA pH [5.0-8.0] 1.013 (07/28/14 12:11 PM) UA Spec Grav [<=1.030] Negative mg/dL *NA* (07/28/14 12:11 PM) UA Glucose [Negative mg/dL] Negative (07/28/14 12:11 PM) UA Blood [Negative] Negative mg/dL *NA* (07/28/14 12:11 PM) UA Ketones [Negative mg/dL] Negative mg/dL (07/28/14 12:11 PM) UA Protein [Negative mg/dL] <=1.0 mg/dL *NA* (07/28/14 12:11 PM) UA Urobilinogen [0.1-1.0 mg/dL] Negative *NA* (07/28/14 12:11 PM) UA Bili [Negative] Negative (07/28/14 12:11 PM) UA Leuk Est [Negative] Negative (07/28/14 12:11 PM) UA Nitrite [Negative] 2 /HPF (07/28/14 12:11 PM) UA WBC [0-5 /HPF] None Seen *NA* (07/28/14 12:11 PM) UA Sq Epi HEMATOLOGY 1 2 3 Most recent to oldest [Reference Range]: 8.6 K/CMM (08/03/14 7:24 AM) 8.8 K/CMM (08/02/14 5:11 AM) 10.4 K/CMM (08/01/14 4:37 AM) WBC [3.7-10.4 K/CMM] 3.42 M/CMM *LOW* (08/03/14 7:24 AM) 3.20 M/CMM *LOW* (08/02/14 5:11 AM) 3.58 M/CMM *LOW* (08/01/14 4:37 AM) RBC [4.70-6.10 M/CMM] 11.1 g/dL *LOW* (08/03/14 7:24 AM) 10.5 g/dL *LOW* (08/02/14 5:11 AM) 11.6 g/dL *LOW* (08/01/14 4:37 AM) Hgb [14.0-18.0 g/dL] 33.1 % *LOW* (08/03/14 7:24 AM) 30.9 % *LOW* (08/02/14 5:11 AM) 34.6 % *LOW* (08/01/14 4:37 AM) Hct [42.0-54.0 %] 96.7 fL *HI* (08/03/14 7:24 AM) 96.5 fL *HI* (08/02/14 5:11 AM) 96.5 fL *HI* (08/01/14 4:37 AM) MCV [80.0-94.0 fL] 32.5 pg *HI* (08/03/14 7:24 AM) 32.7 pg *HI* (08/02/14 5:11 AM) 32.4 pg *HI* (08/01/14 4:37 AM) MCH [27.0-31.0 pg] 33.6 g/dL (08/03/14 7:24 AM) 33.9 g/dL (08/02/14 5:11 AM) 33.6 g/dL (08/01/14 4:37 AM) MCHC [32.0-36.0 g/dL] 14.0 % (08/03/14 7:24 AM) 14.3 % (08/02/14 5:11 AM) 14.6 % *HI* (08/01/14 4:37 AM) RDW [11.5-14.5 %] 279 K/CMM (08/03/14 7:24 AM) 222 K/CMM (08/02/14 5:11 AM) 222 K/CMM (08/01/14 4:37 AM) Platelet [133-450 K/CMM] 8.2 fL (08/03/14 7:24 AM) 8.4 fL (08/02/14 5:11 AM) 8.4 fL (08/01/14 4:37 AM) MPV [7.4-10.4 fL] 61.0 % (08/03/14 7:24 AM) 75.6 % *HI* (08/02/14 5:11 AM) 82.8 % *HI* (08/01/14 4:37 AM) Segs [45.0-75.0 %] 17.4 % *LOW* (08/03/14 7:24 AM) 9.4 % *LOW* (08/02/14 5:11 AM) 8.0 % *LOW* (08/01/14 4:37 AM) Lymphocytes [20.0-40.0 %] 7.5 % (08/03/14 7:24 AM) 6.2 % (08/02/14 5:11 AM) 4.9 % (08/01/14 4:37 AM) Monocytes [2.0-12.0 %] 13.9 % *HI* (08/03/14 7:24 AM) 8.7 % *HI* (08/02/14 5:11 AM) 4.3 % *HI* (08/01/14 4:37 AM) Eosinophils [0.0-4.0 %] 0.2 % (08/03/14 7:24 AM) 0.1 % (08/02/14 5:11 AM) 0.7 % (07/28/14 11:45 AM) Basophils [0.0-1.0 %] 5.3 K/CMM (08/03/14 7:24 AM) 6.7 K/CMM (08/02/14 5:11 AM) 8.6 K/CMM *HI* (08/01/14 4:37 AM) Segs-Bands # [1.5-8.1 K/CMM] 1.5 K/CMM (08/03/14 7:24 AM) 0.8 K/CMM *LOW* (08/02/14 5:11 AM) 0.8 K/CMM *LOW* (08/01/14 4:37 AM) Lymphocytes # [1.0-5.5 K/CMM] 0.7 K/CMM (08/03/14 7:24 AM) 0.5 K/CMM (08/02/14 5:11 AM) 0.5 K/CMM (08/01/14 4:37 AM) Monocytes # [0.0-0.8 K/CMM] 1.2 K/CMM *HI* (08/03/14 7:24 AM) 0.8 K/CMM *HI* (08/02/14 5:11 AM) 0.4 K/CMM (08/01/14 4:37 AM) Eosinophils # [0.0-0.5 K/CMM] 0.1 K/CMM (07/28/14 11:45 AM) Basophils # [0.0-0.2 K/CMM] 12.7 seconds (07/28/14 11:45 AM) PT [12.0-14.7 seconds] 0.95 10 (07/28/14 11:45 AM) INR [0.85-1.17] 32.3 seconds 11 (07/28/14 11:45 AM) PTT [22.9-35.8 seconds] 10Interpretive Data: RECOMMENDED RANGES FOR PROTIME INR: 2.0-3.0 for most medical and surgical thromboembolic states. 2.5-3.5 for artificial heart valves and recurrent embolism. INR SHOULD BE USED ONLY FOR PATIENTS ON STABLE ANTICOAGULANT THERAPY. 11Interpretive Data: Heparin Therapeutic Range: 57 - 92 Seconds Medications Administered During Your Visit No data available for this section Immunizations No data available for this section Procedures Procedure Type Body Site Date of Procedure Related Diagnosis Bronchoscopy Social History Social History Type Response Alcohol Use: Current, Previous treatment: None Smoking Status Former smoker, Exposure to Tobacco Smoke None, Cigarette Smoking Last 365 Days No, Reg Smoking Cessation Counseling No Assessment and Plan Extracted from: Title: Clinical Document Author: Bernabe Ryan MD Date: 08/03/14 [id number] Extracted from: Title: Clinical Document Author: Kamran Cuellar MD Date: 08/03/14 Progress Note [facility] Kamran Cuellar M.D. [facility] Follow up reason: Follow up for HTN and post lung surgery cardiac monitoring No more parox aflutter episodes no palpitations Other Diagnosis: * right Throracotomy x 2 for lung mass 1. Hypertension. 2. Right lung mass. 3. GERD. 4. Dyslipidemia. VitalsTmp(F)Tmp(C)[id number] 08/03 11:[id number]/84---[id number]------ 08/03 08:0698.136.41dvan911/80---[id number]------ 08/03 07:40 1897 21%--- 08/03 04:0098.236.91azrk659/86---[id number]------ 08/03 00:0098.937.44nxyo067/70---[id number]------ General: No acute distress; Eyes:EOMI Neck: No JVD; no swelling Heart: S1, S2 normal; No murmur, No rub, No gallop Chest: B/L Air Entry +; No wheeze; No crepititions PA: BS+; NT; ND NS: AAOx3; No signs of lateralization Extremities,Lower : No edema; Labs & Diagnostic Work up: Labs (Last four charted values) WBC 8.6(AUG 03)8.8(AUG 02)10.4(AUG 01)H 10.6(JUL 31) Hgb L 11.1(AUG 03)L 10.5(AUG 02)L 11.6(AUG 01)L 11.6(JUL 31) Hct L 33.1(AUG 03)L 30.9(AUG 02)L 34.6(AUG 01)L 34.0(JUL 31) Plt 279(AUG 03)222(AUG 02)222(AUG 01)217(JUL 31) Na 139(AUG 03)L 134(AUG 02)L 133(AUG 01)136(JUL 31) K 3.9(AUG 03)4.3(AUG 02)4.5(AUG 01)4.3(JUL 31) CO2 29(AUG 03)L 23(AUG 02)L 22(AUG 01)L 22(JUL 31) Cl 102(AUG 03)101(AUG 02)101(AUG 01)102(JUL 31) Cr 1.0(AUG 03)0.9(AUG 02)1.2(AUG 01)1.2(JUL 31) BUN L 4(AUG 03)L 5(AUG 02)10(AUG 01)14(JUL 31) Glucose Random H 114(AUG 03)H 124(AUG 02)H 129(AUG 01)H 151(JUL 31) Mg 2.0(AUG 03)2.1(AUG 02)2.4(JUL 31)L 1.6(JUL 30) Phos 3.6(JUL 30) Ca 8.6(AUG 03)L 8.1(AUG 02)L 7.5(AUG 01)L 7.4(JUL 31) PT 12.7(JUL 28) INR 0.95(JUL 28) PTT 32.3(JUL 28) Medications Medications (16) Active Scheduled: (11) albuterol 0.083% 3 ml neb SOLN 2.49 mg 3 mL, NEB, RQ4H amLODIPine 5 mg TAB 10 mg 2 tab, PO, Daily aspirin 325 mg ECT 325 mg 1 tab, PO, Daily calcium elemental 500 mg TAB (1.25gm as carbonate) 1,000 mg 2 tab, PO, BID doxazosin 4 mg TAB 8 mg 2 tab, PO, Bedtime heparin 5000 unit/1 ml INJ VL 5,000 unit 1 mL, SUB-Q, E54L-[id number] levofloxacin (5mg/ml) D5W premix INJ 500 mg 100 mL, IVPB, [id number] losartan 50 mg TAB 100 mg 2 tab, PO, Daily pantoprazole 40 mg ECT 40 mg 1 tab, PO, Before Breakfast pravastatin 20 mg TAB 20 mg 1 tab, PO, Bedtime silver sulfADIAZINE 1% 400 gm top CRM 1 appl, TOP, BID Continuous: (0) PRN: (5) acetaminophen-codeine 300-30 mg TAB 2 tab, PO, Q4H atropine 1 mg/10 ml INJ syringe 0.5 mg 5 mL, IVP, PRN bisacodyl 10 mg rect SUPP 10 mg 1 supp, OK, Daily naloxone 0.4 mg/ml 1ml INJ vial 0.04 mg 0.1 mL, IVP, Q2MIN nitroglycerin 0.4 mg TAB 25's btl 0.4 mg 1 tab, SL, Q5Min Assessment/Plan : -Post lung surgery parox Aflutter with controlled VR: ASA 325mg po daily -continue above anti-HTN meds ok to discharge from cardiac perspective
--- OUTSIDE RECORDS SUMMARY | 2018-12-18 23:09 | XMS REPORT | Summary of Care ---
Author Organization Unknown Address Unknown Phone Unavailable Encounter HQ Yara_mariah(TRUDY) [id number] Date(s): 06/30/14 - 06/30/14 [facility] [address] [address] Discharge Disposition: Home Physician Attending: Christelle Corrigan MD Physician_Referring: Christelle Corrigan MD Reason for Visit LUNG MASS Vital Signs Most recent to 1 oldest [Reference Range]: Height 177.8 cm (06/30/14 11:28 AM) Weight 75 kg (06/30/14 11:28 AM) Body Mass Index 23.72 m2 (06/30/14 11:28 AM) Problem List Condition Effective Dates Status Health Status Informant Cholesterol Resolved level(Confirmed)1 Hypertension(Confirm Resolved ed) Mass(Confirmed)2 Resolved Neck pain(Confirmed) Resolved Reflux(Confirmed) Resolved 1high 2lung Allergies, Adverse Reactions, Alerts Substance Reaction Severity Status lisinopril Active penicillins Facial swelling Active Medications acetaminophen-hydrocodone 325 mg-5 mg oral tablet 2 tab, Route: PO, Dosing Weight 75, kg, Q4H, PRN Pain Score 4-6, Start date: 12:58:00, Duration: 30 day, Stop date: 07/30/14 12:57:00 Start Date: 06/30/14 Stop Date: 07/01/14 Status: Discontinued ondansetron 4 mg, Route: IVP, Q8H, Dosing Weight 75, kg, PRN Nausea & Vomiting, Start date: 06/30/14 12:58:00, Duration: 30 day, Stop date: 07/30/14 12:57:00 Start Date: 06/30/14 Stop Date: 07/01/14 Status: Discontinued Medications Administered During Your Visit No data available for this section Immunizations No data available for this section Procedures Procedure Type Body Site Date of Procedure Related Diagnosis Partial lobectomy of 05/28/14 12:00 AM lung1 1right side Social History Social History Type Response Alcohol Use: Current, Type: Liquor, Previous treatment: None Smoking Status Former smoker, Exposure to Tobacco Smoke None, Cigarette Smoking Last 365 Days No, Reg Smoking Cessation Counseling No Assessment and Plan Extracted from: Title: IR Right Lung Biopsy Author: Dheeraj Fermin MD Date: 06/30/14 PROCEDURE REQUESTED: Needle biopsy right lung REQUESTING PHYSICIAN: Christelle Corrigan MD (Thoracic Surgery) HISTORY/INDICATIONS: 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 Post-operative chest CT on 06/25/14 showed 2.8 cm opacity in vicinity of the resected lesion described as a residual mass. CT was reviewd with Dr. Corrigan and the abnormality is felt to be fluid/hematoma either in the operative site or fissure (see addendum on CT report). Dr. Corrigan has requested needle biopsy/aspiration for definitive diagnosis. MEDICAL: Hypertension, hyperlipidemia PROCEDURAL HISTORY: Right thoracotomy, bronchoscopy MEDICATIONS: Amlopidine, doxazosin, lansoprazole, pravastatin ALLERGIES: Penicillin PHYSICAL FINDINGS: BP 132/69 P 73 R 23 Alert, oriented, anxious No acute distress SaO2 100% ETCO2 20 Regular rythym IMPRESSION: Postoperative right lung mass, suspected postoperative fluid collection or hematoma PLAN: Needle aspiration/biopsy of right lung mass with CT. Procedure and risks discussed with patient and daughter, including pneumothorax and hemoptysis. ASA: II
--- OUTSIDE RECORDS SUMMARY | 2018-12-18 23:09 | XMS REPORT | Summary of Care ---
Author Organization Unknown Address Unknown Phone Unavailable Encounter HQ Encntr_mariah(FIN) [id number] Date(s): 06/25/14 - 06/25/14 [facility] [address] [place] Discharge Disposition: Home Physician Attending: Christelle Corrigan MD Physician_Referring: Christelle Corrigan MD Reason for Visit LUNG MASS Problem List Condition Effective Dates Status Health Status Informant Cholesterol Resolved level(Confirmed)1 Hypertension(Confirm Resolved ed) Mass(Confirmed)2 Resolved Neck pain(Confirmed) Resolved Reflux(Confirmed) Resolved 1high 2lung Allergies, Adverse Reactions, Alerts Substance Reaction Severity Status lisinopril Active penicillins Facial swelling Active Medications No data available for this section Medications Administered During Your Visit No data available for this section Immunizations No data available for this section Social History Social History Type Response Alcohol Use: Current, Type: Liquor, Previous treatment: None Smoking Status Former smoker, Exposure to Tobacco Smoke None, Cigarette Smoking Last 365 Days No, Reg Smoking Cessation Counseling No
--- OUTSIDE RECORDS SUMMARY | 2018-12-18 23:09 | XMS REPORT | Summary of Care ---
Author Organization Unknown Address Unknown Phone Unavailable Encounter HQ Encntr_mariah(FIN) [id number] Date(s): 06/09/14 - 06/09/14 [facility] [address] Discharge Disposition: Home Physician Attending: Christelle Corrigan MD Reason for Visit XRAY Problem List Condition Effective Dates Status Health [...]
--- OUTSIDE RECORDS SUMMARY | 2018-12-18 23:09 | XMS REPORT | Summary of Care ---
Author Organization Unknown Address Unknown Phone Unavailable Encounter HQ Encntr_mariah(FIN) [id number] Date(s): 09/01/14 - 09/01/14 [facility] [address] Discharge Disposition: Home Physician Attending: Christelle [...]
--- OUTSIDE RECORDS SUMMARY | 2018-12-18 23:09 | XMS REPORT | Summary of Care ---
Author Organization Unknown Address Unknown Phone Unavailable Encounter [facility] Dennys(TRUDY) [id number] Date(s): 05/28/14 - 06/01/14 [facility] [id number] [address] Discharge Disposition: Home Physician Attending: Caroline Beyer MD Physician Admitting: Caroline Beyer MD Physician_Referring: Christelle Corrigan MD Reason for Visit RIGHT LUNG MASS Vital Signs 1 2 3 Most recent to oldest [Reference Range]: 177.8 cm (05/28/14 4:15 PM) 177.8 cm (05/26/14 11:11 AM) Height 98.8 DegF (06/01/14 12:00 PM) 98.5 DegF (06/01/14 8:00 AM) 99.6 DegF *HI* (06/01/14 4:00 AM) Temperature Oral [96.4-99.1 DegF] 157 mmHg *HI* (06/01/14 12:00 PM) 160 mmHg *HI* (06/01/14 8:00 AM) 153 mmHg *HI* (06/01/14 4:00 AM) Systolic Blood Pressure [90-140 mmHg] 89 mmHg (06/01/14 12:00 PM) 75 mmHg (06/01/14 8:00 AM) 66 mmHg (06/01/14 4:00 AM) Diastolic Blood Pressure [60-90 mmHg] 18 BRMIN (06/01/14 12:00 PM) 18 BRMIN (06/01/14 8:00 AM) 18 BRMIN (06/01/14 6:55 AM) Respiratory Rate [14-20 BRMIN] 87 bpm (06/01/14 12:00 PM) 89 bpm (06/01/14 8:00 AM) 98 bpm (06/01/14 4:00 AM) Peripheral Pulse Rate [60-100 bpm] 80 kg (05/28/14 4:15 PM) 79.091 kg (05/26/14 11:11 AM) Weight 25.31 m2 (05/28/14 4:15 PM) 25.02 m2 (05/26/14 11:11 AM) Body Mass Index Problem List Condition Effective Dates Status Health Status Informant Cholesterol Resolved level(Confirmed)1 Hypertension(Confirm Resolved ed) Mass(Confirmed)2 Resolved Neck pain(Confirmed) Resolved Reflux(Confirmed) Resolved 1high 2lung Allergies, Adverse Reactions, Alerts Substance Reaction Severity Status lisinopril Active penicillins Facial swelling Active Medications acetaminophen-hydrocodone 325 mg-5 mg oral tablet 2 tab, Route: PO, Drug Form: TAB, Dosing Weight 80, kg, Q4H, PRN Pain Score 4-6, Start date: 05/29/14 11:14:00, Duration: 30 day, Stop date: 06/28/14 11:13:00 Notes: (Same as: Rosebud 325/5) Do not exceed 4gm/day of acetaminophen. Start Date: 05/29/14 Stop Date: 05/31/14 Status: Discontinued albuterol 0.083% inhalation solution 2.49 mg, 3 mL, Route: NEB, Drug form: SOLN, RQ4H, Dosing Weight 79.091, kg, Star t date: 05/28/14 19:00:00, Duration: 30 day, Stop date: 06/27/14 15:00:00 Notes: SEE RT DOCUMENTATION (Same as: Tiffanie) Start Date: 05/28/14 Stop Date: 05/28/14 Status: Deleted albuterol 0.083% inhalation solution 2.49 mg, 3 mL, Route: NEB, Drug form: SOLN, ONCE, Dosing Weight 79.091, kg, Star t date: 05/28/14 7:43:00, Stop date: 05/28/14 7:43:00 Notes: SEE RT DOCUMENTATION (Same as: Tiffanie) Start Date: 05/28/14 Stop Date: 05/28/14 Status: Completed albuterol 0.083% inhalation solution 2.49 mg, 3 mL, Route: NEB, Drug form: SOLN, RQ4H, Dosing Weight 79.091, kg, Star t date: 05/28/14 11:00:00, Duration: 30 day, Stop date: 06/27/14 7:00:00 Notes: SEE RT DOCUMENTATION (Same as: Proventil) Start Date: 05/28/14 Stop Date: 06/01/14 Status: Discontinued amLODIPine 10 mg, PO, Daily, 0 Refill(s) Start Date: 05/26/14 Status: Ordered amLODIPine 10 mg, 2 tab, Route: PO, Drug form: TAB, Daily, Dosing Weight 80, kg, Start date : 05/30/14 9:00:00, Duration: 30 day, Stop date: 06/28/14 9:00:00 Notes: (Same as: Norvasc) Start Date: 05/30/14 Stop Date: 06/01/14 Status: Discontinued cefOXitin (SCIP) + Sodium Chloride 0.9% IV 100 mL 1 gm, Route: IVPB, ABXQ6H, Dosing Weight 79.091, kg, Start date: 05/28/14 17:00: 00, Duration: 24 hr, Stop date: 05/29/14 11:00:00 Notes: (Same As: Mefoxin) Start Date: 05/28/14 Stop Date: 05/29/14 Status: Discontinued chlorhexidine topical 0.12% liquid 15 ml, Route: S&SPIT, Q12H, Drug form: LIQ, Start date: 05/28/14 21:00:00, Duration: 2 week, Stop date: 06/11/14 9:00:00 Notes: (Same As: Peridex) Start Date: 05/28/14 Stop Date: 05/30/14 Status: Discontinued diphenhydrAMINE 12.5 mg, 0.25 mL, Route: IVP, Drug form: INJ, Q6H, Dosing Weight 79.091, kg, PRN Itching, Start date: 05/28/14 10:36:00, Duration: 30 day, Stop date: 06/27/14 1 0:35:00 Notes: (Same as: Benadryl) Start Date: 05/28/14 Stop Date: 05/28/14 Status: Discontinued docusate 100 mg, Route: PO, BID, Dosing Weight 79.091, kg, PRN Constipation, Start date: 05/28/14 16:06:00, Duration: 30 day, Stop date: 06/27/14 16:05:00 Start Date: 05/28/14 Stop Date: 05/28/14 Status: Deleted docusate sodium 100 mg oral capsule 100 mg, 1 cap, Route: PO, Drug form: CAP, BID, PRN Constipation, Start date: 9:00:00, Duration: 30 day, Stop date: 06/29/14 8:59:00 Notes: (Same as: Colace) (Do Not Crush) Start Date: 05/30/14 Stop Date: 06/01/14 Status: Discontinued doxazosin 8 mg, 2 tab, Route: PO, Drug form: TAB, Daily, Dosing Weight 80, kg, Start date: 05/29/14 20:40:00, Duration: 30 day, Stop date: 06/28/14 21:00:00 Notes: (Same as: Cardura) Start Date: 05/29/14 Stop Date: 06/01/14 Status: Discontinued doxazosin 4 mg oral tablet 8 mg=2 tab, PO, Daily, # 30 tab, 0 Refill(s) Start Date: 05/26/14 Status: Ordered Dulcolax Laxative 10 mg, 1 supp, Route: MS, Drug form: SUPP, ONCE, Dosing Weight 80, kg, PRN as ne eded for constipation, Start date: 05/29/14 11:36:00 Notes: (Same As: Dulcolax, Bisco-Lax) Start Date: 05/29/14 Stop Date: 05/29/14 Status: Completed fentaNYL 25 microgram, 0.5 mL, Route: IVP, Drug form: INJ, Q5Min, Dosing Weight 79.091, k g, PRN Pain Score 4-6, Start date: 05/28/14 10:36:00, Duration: 4 doses or times , Stop date: Limited # of times Notes: (Same as: Sublimaze) Preservative free. Start Date: 05/28/14 Stop Date: 05/28/14 Status: Discontinued fentaNYL 50 microgram, 1 mL, Route: IVP, Drug form: INJ, Q5Min, Dosing Weight 79.091, kg, PRN Pain Score 7-10, Start date: 05/28/14 10:36:00, Duration: 2 doses or times, Stop date: Limited # of times Notes: (Same as: Sublimaze) Preservative free. Start Date: 05/28/14 Stop Date: 05/28/14 Status: Discontinued Fleet Enema 133 ml, Route: MS, Drug Form: CHERELLE, Dosing Weight 80, kg, ONCE, Start date: 05/08 12/18 20:18:00, Stop date: 05/29/14 20:18:00 Start Date: 05/29/14 Stop Date: 05/29/14 Status: Deleted flumazenil 0.2 mg, 2 mL, Route: IVP, Drug form: INJ, PRN, Dosing Weight 79.091, kg, PRN Ramiro zodiazepine Reversal, Initial dose, Start date: 05/28/14 10:36:00, Duration: 30 day, Stop date: 06/27/14 10:35:00 Notes: (Same as: Romazicon) Start Date: 05/28/14 Stop Date: 05/28/14 Status: Discontinued glycopyrrolate 0.2 mg, 1 mL, Route: IVP, Drug form: INJ, Q5Min, Dosing Weight 79.091, kg, PRN B radycardia, Start date: 05/28/14 10:36:00, Duration: 3 doses or times, Stop date : Limited # of times Notes: (Same as: Cristine) Start Date: 05/28/14 Stop Date: 05/28/14 Status: Discontinued heparin 5,000 unit, 1 mL, Route: SUB-Q, Drug form: INJ, [id number], Dosing Weight 79.091, k g, Start date: 05/28/14 23:00:00, Duration: 30 day, Stop date: 06/27/14 11:00:00 Notes: porcine heparin Start Date: 05/28/14 Stop Date: 06/01/14 Status: Discontinued heparin 5,000 unit, 1 mL, Route: SUB-Q, Drug form: INJ, Q12H, Dosing Weight 79.091, kg, Start date: 05/29/14 20:00:00, Duration: 30 day, Stop date: 06/28/14 9:00:00 Notes: porcine heparin Start Date: 05/29/14 Stop Date: 05/28/14 Status: Canceled heparin 5000 units/mL injectable solution 5,000 unit, Route: SUB-Q, Drug form: INJ, ONCE, Dosing Weight 79.091, kg, Start date: 05/28/14 7:06:00, Stop date: 05/28/14 7:06:00 Start Date: 05/28/14 Stop Date: 05/28/14 Status: Completed hydrALAZINE 10 mg, 0.5 mL, Route: IVP, Drug form: INJ, Q20Min, Dosing Weight 79.091, kg, PRN Elevated BP, Start date: 05/28/14 10:36:00, Duration: 2 doses or times, Stop da te: Limited # of times Notes: (Same as: Apresoline)Push over 5 minutes Start Date: 05/28/14 Stop Date: 05/28/14 Status: Discontinued hydromorphone 0.5 mg, 0.5 mL, Route: IVP, Drug form: INJ, Q5Min, Dosing Weight 79.091, kg, PRN Pain Score 7-10, Start date: 05/28/14 10:36:00, Duration: 4 doses or times, Stop date: Limited # of times Start Date: 05/28/14 Stop Date: 05/28/14 Status: Discontinued ketorolac 30 mg, 1 mL, Route: IVP, Drug form: INJ, ONCE, Dosing Weight 79.091, kg, Start d ate: 05/28/14 10:36:00, Duration: 1 doses or times, Stop date: 05/28/14 10:36:00 Notes: (Same as:Toradol) IV bolus must be given >15 seconds. Give IM administration slowly and deeply into the muscle. Not for use > 4 days Start Date: 05/28/14 Stop Date: 05/28/14 Status: Discontinued ketorolac 15 mg/mL injectable solution 15 mg, 1 mL, Route: IV, Drug form: INJ, Q6H, Dosing Weight 80, kg, Start date: 0 05/29/14 2:00:00, Duration: 2 day, Stop date: 05/30/14 19:00:00 Notes: (Same as:Toradol) IV bolus must be given >15 seconds. Give IM administration slowly and deeply into the muscle. Not for use > 4 days. Start Date: 05/29/14 Stop Date: 05/29/14 Status: Discontinued ketorolac 30 mg/mL injectable solution 30 mg, 1 mL, Route: IV, Drug form: INJ, ONCE, Dosing Weight 80, kg, Start date: 05/28/14 19:13:00, Duration: 1 doses or times, Stop date: 05/28/14 19:13:00 Notes: (Same as:Toradol) IV bolus must be given >15 seconds. Give IM administration slowly and deeply into the muscle. Not for use > 4 days Start Date: 05/28/14 Stop Date: 05/28/14 Status: Completed Lactated Ringers Injection IV 1,000 mL 1,000 mL, Rate: 25 ml/hr, Infuse over: 40 hr, Route: IV, Dosing Weight 79.091 kg , Total Volume: 1,000, Start date: 05/28/14 7:04:00, Duration: 30 day, Stop date : 06/27/14 7:03:00 Start Date: 05/28/14 Stop Date: 05/28/14 Status: Discontinued lansoprazole 30 mg, Route: PO, Drug form: ECCAP, Before Breakfast, Dosing Weight 80, kg, Star t date: 05/30/14 7:30:00, Duration: 30 day, Stop date: 06/28/14 7:30:00 Start Date: 05/30/14 Stop Date: 05/29/14 Status: Deleted lansoprazole 15 mg oral delayed release capsule 15 mg=1 cap, PO, Daily, # 30 cap, 0 Refill(s) Start Date: 05/26/14 Status: Ordered Levaquin 500 mg, 100 mL, Route: IV, Drug form: INJ, ONCE, Dosing Weight 79.091, kg, Start date: 05/28/14 7:06:00, Stop date: 05/28/14 7:06:00 Notes: (Same as:Levaquin) Start Date: 05/28/14 Stop Date: 05/28/14 Status: Completed levofloxacin 500 mg, 100 mL, Route: IVPB, Drug form: INJ, [id number], Dosing Weight 79.091, kg, Start date: 05/28/14 17:00:00, Duration: 30 day, Stop date: 06/26/14 17:00:00 Notes: (Same as:Levaquin) Start Date: 05/28/14 Stop Date: 05/29/14 Status: Discontinued levofloxacin 500 mg, 100 mL, Route: IVPB, Drug form: INJ, [id number], Dosing Weight 80, kg, Star t date: 05/30/14 11:00:00, Duration: 30 day, Stop date: 06/28/14 11:00:00 Notes: (Same as:Levaquin) Start Date: 05/30/14 Stop Date: 06/01/14 Status: Discontinued losartan 100 mg, 2 tab, Route: PO, Drug form: TAB, Daily, Dosing Weight 80, kg, Start yeison e: 05/30/14 9:00:00, Duration: 30 day, Stop date: 06/28/14 9:00:00 Notes: (Same as: Gianna) Start Date: 05/30/14 Stop Date: 06/01/14 Status: Discontinued losartan 100 mg oral tablet 100 mg=1 tab, PO, Daily, # 30 tab, 0 Refill(s) Start Date: 05/26/14 Status: Ordered magnesium sulfate 2 gm, 50 mL, Route: IVPB, Drug form: INJ, ONCE, Dosing Weight 80, kg, Total dose =2 gm, Start date: 05/28/14 16:48:00, Duration: 1 doses or times, Stop date: 16:48:00 Start Date: 05/28/14 Stop Date: 05/28/14 Status: Completed magnesium sulfate 2 gm in Water 50 ml 2 gm, 50 mL, Route: IVPB, Drug form: INJ, ONCE, Dosing Weight 79.091, kg, Start date: 05/28/14 12:06:00, Duration: 2 hr, Stop date: 05/28/14 12:06:00 Start Date: 05/28/14 Stop Date: 05/28/14 Status: Completed meperidine 12.5 mg, 0.25 mL, Route: IVP, Drug form: INJ, Q30Min, Dosing Weight 79.091, kg, PRN Other -See Comment, For shivering, Start date: 05/28/14 10:36:00, Duration: 2 doses or times, Stop date: Limited # of times Notes: (Same As: Demerol) Start Date: 05/28/14 Stop Date: 05/28/14 Status: Discontinued metoprolol 1 mg, 1 mL, Route: IVP, Drug form: INJ, Q5Min, Dosing Weight 79.091, kg, PRN Oth er -See Comment, Start date: 05/28/14 10:36:00, Duration: 5 doses or times, Stop date: Limited # of times Notes: (Same as: Lopressor)Push over 2 minutes Start Date: 05/28/14 Stop Date: 05/28/14 Status: Discontinued morphine 1 mg/ml MANAGER FLOOR (30 mg/30 mL) INJ Syringe 30 mg 30 mg, 30 mL, Route: IV, MANAGER FLOOR Dose: 1 mg, MANAGER FLOOR Lockout: 10 minutes, Continuous Ba kierra Rate: 0 mg, 4 Hour Limit (In MG): 24, Drug Form: INJ, Continuous, Pain, Star t date: 05/28/14 16:06:00, Duration: 30 day, Stop date: 06/27/14 16:05:00 Notes: Dose: Delay: Basal rate: 4hr limit:( Same as:Rapi-Ject) Start Date: 05/28/14 Stop Date: 05/29/14 Status: Discontinued morphine 1 mg/ml MANAGER FLOOR (30 mg/30 mL) INJ Syringe 30 mg 30 mg, 30 mL, Route: IV, MANAGER FLOOR Dose: 1 mg, MANAGER FLOOR Lockout: 10 minutes, Continuous Ba kierra Rate: 0 mg, 4 Hour Limit (In MG): 24, Drug Form: INJ, Continuous, Pain, Star t date: 05/28/14 10:43:00, Duration: 30 day, Stop date: 06/27/14 10:42:00 Notes: Dose: Delay: Basal rate: 4hr limit:( Same as:Rapi-Ject) Start Date: 05/28/14 Stop Date: 05/28/14 Status: Discontinued morphine Sulfate 2 mg, 1 mL, Route: IVP, Drug form: INJ, Q5Min, Dosing Weight 79.091, kg, PRN Lisbeth n Score 4-6, Start date: 05/28/14 10:36:00, Duration: 5 doses or times, Stop yeison e: Limited # of times Notes: (Same as:MORPhine Sulfate) Start Date: 05/28/14 Stop Date: 05/28/14 Status: Discontinued morphine Sulfate 4 mg, 2 mL, Route: IVP, Drug form: INJ, Q5Min, Dosing Weight 79.091, kg, PRN Lisbeth n Score 7-10, Start date: 05/28/14 10:36:00, Duration: 3 doses or times, Stop da te: Limited # of times Notes: (Same as:MORPhine Sulfate) Start Date: 05/28/14 Stop Date: 05/28/14 Status: Discontinued morphine Sulfate 4 mg, 2 mL, Route: IVP, Drug form: INJ, Q4H, Dosing Weight 79.091, kg, PRN Pain Score 1-5, Start date: 05/28/14 16:06:00, Duration: 30 day, Stop date: 06/27/14 16:05:00 Notes: (Same as:MORPhine Sulfate) Start Date: 05/28/14 Stop Date: 05/28/14 Status: Deleted morphine Sulfate 4 mg, 2 mL, Route: IVP, Drug form: INJ, Q4H, Dosing Weight 79.091, kg, PRN Pain Score 1-5, Start date: 05/28/14 10:43:00, Stop date: 06/27/14 10:42:00 Notes: (Same as:MORPhine Sulfate) Start Date: 05/28/14 Stop Date: 05/28/14 Status: Discontinued naloxone 0.04 mg, 0.1 mL, Route: IVP, Drug form: INJ, Q2MIN, Dosing Weight 79.091, kg, MS N Narcotic Reversal, Start date: 05/28/14 10:36:00, Duration: 8 doses or times, Stop date: Limited # of times Notes: Same as Narcan Start Date: 05/28/14 Stop Date: 05/28/14 Status: Discontinued naloxone 0.04 mg, 0.1 mL, Route: IVP, Drug form: INJ, Q2MIN, Dosing Weight 79.091, kg, MS N Narcotic Reversal, Start date: 05/28/14 16:06:00, Duration: 30 day, Stop date: 06/27/14 16:05:00 Notes: Same as Narcan Start Date: 05/28/14 Stop Date: 05/29/14 Status: Discontinued naloxone 0.04 mg, 0.1 mL, Route: IVP, Drug form: INJ, Q2MIN, Dosing Weight 79.091, kg, MS N Narcotic Reversal, Start date: 05/28/14 10:43:00, Duration: 30 day, Stop date: 06/27/14 10:42:00 Notes: Same as Narcan Start Date: 05/28/14 Stop Date: 05/28/14 Status: Discontinued nitroglycerin 0.4 mg, 1 tab, Route: SL, Drug form: TAB, Q5Min, Dosing Weight 79.091, kg, PRN C hest Pain, Start date: 05/28/14 16:06:00, Duration: 30 day, Stop date: 06/27/14 16:05:00 Notes: (Same as:Nitroquick, Nitrostat)"Do Not Crush" Sublingual tablet Start Date: 05/28/14 Stop Date: 06/01/14 Status: Discontinued NS 1000 mL 1,000 mL, Rate: 50 ml/hr, Infuse over: 20 hr, Route: IV, Dosing Weight 80 kg, To luis Volume: 1,000, Start date: 05/29/14 17:54:00, Duration: 30 day, Stop date: 0 06/28/14 17:53:00 Start Date: 05/29/14 Stop Date: 06/01/14 Status: Discontinued ondansetron 4 mg, 2 mL, Route: IVP, Drug form: INJ, ONCE, Dosing Weight 79.091, kg, PRN Naus ea & Vomiting, Start date: 05/28/14 10:36:00 Notes: (Same as: Landen) Start Date: 05/28/14 Stop Date: 05/28/14 Status: Discontinued oxyCODONE 10 mg, 2 tab, Route: PO, Drug form: TAB, Q4H, Dosing Weight 79.091, kg, PRN Pain Score 7-10, Start date: 05/28/14 10:36:00, Duration: 30 day, Stop date: 06/27/14 10:35:00 Notes: (Same as: Roxicodone) Start Date: 05/28/14 Stop Date: 05/28/14 Status: Discontinued oxyCODONE 5 mg, 1 tab, Route: PO, Drug form: TAB, Q4H, Dosing Weight 79.091, kg, PRN Pain Score 4-6, Start date: 05/28/14 10:36:00, Duration: 30 day, Stop date: 06/27/14 10:35:00 Notes: (Same as: Roxicodone) Start Date: 05/28/14 Stop Date: 05/28/14 Status: Discontinued potassium chloride 40 mEq, 2 tab, Route: PO, Drug form: ERTAB, ONCE, Dosing Weight 80, kg, Priority : NOW, Start date: 05/29/14 8:00:00, Stop date: 05/29/14 8:00:00 Notes: (Same as: K-Dur 20)"Do Not Crush" With food and full glass of water Start Date: 05/29/14 Stop Date: 05/29/14 Status: Completed potassium chloride 20 mEq, 100 mL, Route: IVPB, Drug form: INJ, ONCE, Dosing Weight 80, kg, Start d ate: 05/31/14 10:01:00, Stop date: 05/31/14 10:01:00 Notes: (Same as: KCL) Infuse no faster than 10 mEq/hr if given peripherally. Start Date: 05/31/14 Stop Date: 05/31/14 Status: Completed potassium chloride 20 mEq, Route: IVPB, ONCE, Dosing Weight 80, kg, Priority: Routine, Start date: 05/29/14 11:50:00, Stop date: 05/29/14 11:50:00 Start Date: 05/29/14 Stop Date: 05/29/14 Status: Discontinued potassium chloride 10 mEq oral tablet, extended release 20 mEq, 2 tab, Route: PO, Drug form: ERTAB, ONCE, Dosing Weight 80, kg, Start da te: 05/29/14 11:52:00, Stop date: 05/29/14 11:52:00 Notes: (Same as: K-Dur 10)"Do Not Crush" With food and full glass of water Start Date: 05/29/14 Stop Date: 05/29/14 Status: Completed pravastatin 20 mg, 1 tab, Route: PO, Drug form: TAB, Bedtime, Dosing Weight 80, kg, Start da te: 05/29/14 21:00:00, Duration: 30 day, Stop date: 06/27/14 21:00:00 Notes: (Same as: Pravachol) Start Date: 05/29/14 Stop Date: 06/01/14 Status: Discontinued pravastatin 20 mg oral tablet 20 mg=1 tab, PO, Bedtime, # 30 tab, 0 Refill(s) Start Date: 05/26/14 Status: Ordered promethazine + Sodium Chloride 0.9% IV 50 mL 6.25 mg, 0.25 mL, Route: IVPB, ONCE, Dosing Weight 79.091, kg, PRN Nausea & Vomiting, Start date: 05/28/14 10:36:00 Notes: Do not give IV push. (Same as: Phenergan) Start Date: 05/28/14 Stop Date: 05/28/14 Status: Discontinued Protonix 40 mg, 1 tab, Route: PO, Drug form: ECTAB, Before Breakfast, Start date: 4 21:00:00, Duration: 30 day, Stop date: 06/28/14 7:30:00 Notes: Tablet should not be chewed or crushed.(Same as: Protonix) Start Date: 05/29/14 Stop Date: 06/01/14 Status: Discontinued Reglan 5 mg, 1 mL, Route: IVP, Drug form: INJ, Q6H, Dosing Weight 80, kg, Start date: 0 05/30/14 12:00:00, Duration: 30 day, Stop date: 06/29/14 6:00:00 Notes: (Same as: Reglan) Start Date: 05/30/14 Stop Date: 05/30/14 Status: Canceled Reglan 5 mg, 1 mL, Route: IV, Drug form: INJ, ONCE, Dosing Weight 80, kg, Start date: 0 05/29/14 22:48:00, Stop date: 05/29/14 22:48:00 Notes: (Same as: Reglan) Start Date: 05/29/14 Stop Date: 05/29/14 Status: Completed Sodium Chloride 0.9% IV 1,000 mL 1,000 mL, Rate: 75 ml/hr, Infuse over: 13.3 hr, Route: IV, Dosing Weight 79.091 kg, Total Volume: 1,000, Start date: 05/28/14 16:06:00, Duration: 30 day, Stop d ate: 06/27/14 16:05:00 Start Date: 05/28/14 Stop Date: 05/29/14 Status: Discontinued Sodium Chloride 0.9% IV 1,000 mL 1,000 mL, Rate: 75 ml/hr, Infuse over: 13.3 hr, Route: IV, Dosing Weight 79.091 kg, Total Volume: 1,000, Start date: 05/28/14 10:43:00, Duration: 30 day, Stop d ate: 06/27/14 10:42:00 Start Date: 05/28/14 Stop Date: 05/28/14 Status: Discontinued Tylenol 650 mg, 2 tab, Route: PO, Drug form: TAB, Q6H, Dosing Weight 80, kg, PRN Pain Sc ore 1-3, Start date: 05/31/14 11:15:00, Duration: 30 day, Stop date: 06/30/14 11 :14:00 Notes: Do not exceed 4 gm/day. (Same as: Tylenol) Start Date: 05/31/14 Stop Date: 06/01/14 Status: Discontinued Zosyn 3.375 gm, Route: IVPB, Drug form: PDR/INJ, ABXQ6H, Dosing Weight 80, kg, Start d ate: 05/30/14 10:00:00, Duration: 30 day, Stop date: 06/29/14 4:00:00 Start Date: 05/30/14 Stop Date: 05/30/14 Status: Discontinued Results BLOOD BANK RESULTS 1 2 3 Most recent to oldest [Reference Range]: O POS *Unknown* (05/26/14 12:00 PM) ABO/Rh Negative (05/26/14 12:00 PM) Antibody Scrn Product available (05/26/14 12:00 PM) RBC product ELECTROLYTES 1 2 3 Most recent to oldest [Reference Range]: 136 mEq/L (06/01/14 6:59 AM) 138 mEq/L (05/31/14 5:11 AM) 135 mEq/L (05/30/14 5:05 AM) Sodium Lvl [135-145 mEq/L] 4.1 mEq/L (06/01/14 6:59 AM) 3.6 mEq/L (05/31/14 5:11 AM) 3.9 mEq/L (05/30/14 5:05 AM) Potassium Lvl [3.5-5.1 mEq/L] 104 mEq/L (06/01/14 6:59 AM) 104 mEq/L (05/31/14 5:11 AM) 105 mEq/L (05/30/14 5:05 AM) Chloride Lvl [95-109 mEq/L] 23 mEq/L *LOW* (06/01/14 6:59 AM) 21 mEq/L *LOW* (05/31/14 5:11 AM) 20 mEq/L *LOW* (05/30/14 5:05 AM) CO2 [24-32 mEq/L] 13.1 mEq/L (06/01/14 6:59 AM) 16.6 mEq/L (05/31/14:11 AM) 13.9 mEq/L (05/30/14 5:05 AM) AGAP [10.0-20.0 mEq/L] CHEM PANEL 1 2 3 Most recent to oldest [Reference Range]: 0.8 mg/dL (06/01/14 6:59 AM) 1.0 mg/dL (05/31/14 5:11 AM) 1.2 mg/dL (05/30/14 5:05 AM) Creatinine Lvl [0.5-1.4 mg/dL] 92 mL/min/1.73m2 1 *NA* (06/01/14 6:59 AM) 78 mL/min/1.73m2 2 *NA* (05/31/14 5:11 AM) 62 mL/min/1.73m2 3 *NA* (05/30/14 5:05 AM) eGFR 8 mg/dL (06/01/14 6:59 AM) 8 mg/dL (05/31/14 5:11 AM) 10 mg/dL (05/30/14 5:05 AM) BUN [7-22 mg/dL] 10 (05/29/14 6:23 AM) 11 (05/26/14 12:00 PM) B/C Ratio [6-25] 120 mg/dL 4 *HI* (06/01/14 6:59 AM) 134 mg/dL 5 *HI* (05/31/14 5:11 AM) 143 mg/dL 6 *HI* (05/30/14 5:05 AM) Glucose Lvl [70-99 mg/dL] 6.5 g/dL (05/29/14 6:23 AM) 8.1 g/dL (05/26/14 12:00 PM) Total Protein [6.4-8.4 g/dL] 3.2 g/dL *LOW* (05/29/14 6:23 AM) 4.1 g/dL (05/26/14 12:00 PM) Albumin Lvl [3.5-5.0 g/dL] 3.3 g/dL (05/29/14 6:23 AM) 4.0 g/dL (05/26/14 12:00 PM) Globulin [2.0-4.0 g/dL] 1.0 (05/29/14 6:23 AM) 1.0 (05/26/14 12:00 PM) A/G Ratio [0.7-1.6] 7.8 mg/dL *LOW* (06/01/14 6:59 AM) 7.6 mg/dL *LOW* (05/31/14 5:11 AM) 8.2 mg/dL *LOW* (05/30/14 5:05 AM) Calcium Lvl [8.5-10.5 mg/dL] 1.9 mg/dL *LOW* (06/01/14 6:59 AM) Phosphorus [2.5-4.5 mg/dL] 2.4 mg/dL (06/01/14 6:59 AM) 2.1 mg/dL (05/30/14 5:05 AM) 1.9 mg/dL (05/29/14 6:23 AM) Magnesium Lvl [1.8-2.4 mg/dL] 48 unit/L (05/29/14 6:23 AM) 44 unit/L (05/26/14 12:00 PM) ALT [0-65 unit/L] 44 unit/L *HI* (05/29/14 6:23 AM) 43 unit/L *HI* (05/26/14 12:00 PM) AST [0-37 unit/L] 45 unit/L (05/29/14 6:23 AM) 73 unit/L (05/26/14 12:00 PM) Alk Phos [39-136 unit/L] 0.9 mg/dL (05/29/14 6:23 AM) 0.8 mg/dL (05/26/14 12:00 PM) Bili Total [0.2-1.3 mg/dL] 1Result Comment: The eGFR is calculated using [...] be mul tiplied by the estimated BMI. 2Result Comment: The eGFR is calculated using [...] be mul tiplied by the estimated BMI. 4Interpretive Data: Adult reference range values reflect the clinical guidelines of the [employer] [employer]. 5Interpretive Data: Adult reference range values reflect the clinical guidelines of the [place] [employer]. 6Interpretive Data: Adult reference range values reflect the clinical guidelines of the [place] [employer]. URINE AND STOOL 1 2 3 Most recent to oldest [Reference Range]: Clear (05/30/14 9:34 AM) Clear (05/26/14 12:21 PM) UA Turbidity [Clear] Yellow *NA* (05/30/14 9:34 AM) UA Color [Yellow] Ltyellow *NA* (05/26/14 12:21 PM) UA Color 5.0 (05/30/14 9:34 AM) 7.0 (05/26/14 12:21 PM) UA pH [5.0-8.0] 1.024 (05/30/14 9:34 AM) 1.006 (05/26/14 12:21 PM) UA Spec Grav [<=1.030] 50 mg/dL *ABN* (05/30/14 9:34 AM) Negative mg/dL *NA* (05/26/14 12:21 PM) UA Glucose [Negative mg/dL] Moderate *ABN* (05/30/14 9:34 AM) Negative (05/26/14 12:21 PM) UA Blood [Negative] 20 mg/dL *ABN* (05/30/14 9:34 AM) Negative mg/dL *NA* (05/26/14 12:21 PM) UA Ketones [Negative mg/dL] 30 mg/dL *ABN* (05/30/14 9:34 AM) Negative mg/dL (05/26/14 12:21 PM) UA Protein [Negative mg/dL] <=1.0 mg/dL *NA* (05/30/14 9:34 AM) <=1.0 mg/dL *NA* (05/26/14 12:21 PM) UA Urobilinogen [0.1-1.0 mg/dL] Negative *NA* (05/30/14 9:34 AM) Negative *NA* (8/20/14 12:21 PM) UA Bili [Negative] Negative (05/30/14 9:34 AM) Moderate *ABN* (05/26/14 12:21 PM) UA Leuk Est [Negative] Negative (05/30/14 9:34 AM) Negative (05/26/14 12:21 PM) UA Nitrite [Negative] 6 /HPF *HI* (05/30/14 9:34 AM) 21 /HPF *HI* (05/26/14 12:21 PM) UA WBC [0-5 /HPF] 38 /HPF *HI* (05/30/14 9:34 AM) 1 /HPF (05/26/14 12:21 PM) UA RBC [0-2 /HPF] Occasional /LPF *NA* (05/30/14 9:34 AM) UA Sq Epi [Few /LPF] None Seen *NA* (05/26/14 12:21 PM) UA Sq Epi HEMATOLOGY 1 2 3 Most recent to oldest [Reference Range]: 14.4 K/CMM *HI* (06/01/14 6:59 AM) 14.9 K/CMM *HI* (05/31/14 5:11 AM) 13.5 K/CMM *HI* (05/30/14 5:05 AM) WBC [3.7-10.4 K/CMM] 3.60 M/CMM *LOW* (06/01/14 6:59 AM) 3.69 M/CMM *LOW* (05/31/14 5:11 AM) 3.93 M/CMM *LOW* (05/30/14 5:05 AM) RBC [4.70-6.10 M/CMM] 11.8 g/dL *LOW* (06/01/14 6:59 AM) 12.0 g/dL *LOW* (05/31/14 5:11 AM) 12.8 g/dL *LOW* (05/30/14 5:05 AM) Hgb [14.0-18.0 g/dL] 35.0 % *LOW* (06/01/14 6:59 AM) 35.6 % *LOW* (05/31/14 5:11 AM) 38.5 % *LOW* (05/30/14 5:05 AM) Hct [42.0-54.0 %] 97.2 fL *HI* (06/01/14 6:59 AM) 96.5 fL *HI* (05/31/14 5:11 AM) 97.8 fL *HI* (05/30/14 5:05 AM) MCV [80.0-94.0 fL] 32.8 pg *HI* (06/01/14 6:59 AM) 32.5 pg *HI* (05/31/14 5:11 AM) 32.5 pg *HI* (05/30/14 5:05 AM) MCH [27.0-31.0 pg] 33.7 g/dL (06/01/14 6:59 AM) 33.7 g/dL (05/31/14 5:11 AM) 33.3 g/dL (05/30/14 5:05 AM) MCHC [32.0-36.0 g/dL] 13.6 % (06/01/14 6:59 AM) 13.4 % (05/31/14 5:11 AM) 13.4 % (05/30/14 5:05 AM) RDW [11.5-14.5 %] 217 K/CMM (06/01/14 6:59 AM) 186 K/CMM (05/31/14 5:11 AM) 179 K/CMM (05/30/14 5:05 AM) Platelet [133-450 K/CMM] 8.4 fL (06/01/14 6:59 AM) 8.3 fL (05/31/14 5:11 AM) 8.7 fL (05/30/14 5:05 AM) MPV [7.4-10.4 fL] 83.4 % *HI* (06/01/14 6:59 AM) 90.0 % *HI* (05/31/14 5:11 AM) 92.5 % *HI* (05/30/14 5:05 AM) Segs [45.0-75.0 %] 3.0 % (05/31/14 5:11 AM) Bands [0.0-11.0 %] 4.5 % *LOW* (06/01/14 6:59 AM) 2.0 % *LOW* (05/31/14 5:11 AM) 3.2 % *LOW* (05/30/14 5:05 AM) Lymphocytes [20.0-40.0 %] 0.0 % (05/31/14 5:11 AM) Atypical Lymphs [<=0.0 %] 7.9 % (06/01/14 6:59 AM) 5.0 % (05/31/14 5:11 AM) 4.1 % (05/30/14 5:05 AM) Monocytes [2.0-12.0 %] 3.9 % (06/01/14 6:59 AM) 0.1 % (05/30/14 5:05 AM) 0.4 % (05/29/14 6:23 AM) Eosinophils [0.0-4.0 %] 0.3 % (06/01/14 6:59 AM) 0.1 % (05/30/14 5:05 AM) 0.2 % (05/29/14 6:23 AM) Basophils [0.0-1.0 %] 12.0 K/CMM *HI* (06/01/14 6:59 AM) 13.9 K/CMM *HI* (05/31/14 5:11 AM) 12.5 K/CMM *HI* (05/30/14 5:05 AM) Segs-Bands # [1.5-8.1 K/CMM] 0.7 K/CMM *LOW* (06/01/14 6:59 AM) 0.3 K/CMM *LOW* (05/31/14 5:11 AM) 0.4 K/CMM *LOW* (05/30/14 5:05 AM) Lymphocytes # [1.0-5.5 K/CMM] 1.1 K/CMM *HI* (06/01/14 6:59 AM) 0.7 K/CMM (05/31/14 5:11 AM) 0.6 K/CMM (05/30/14 5:05 AM) Monocytes # [0.0-0.8 K/CMM] 0.6 K/CMM *HI* (06/01/14 6:59 AM) 0.1 K/CMM (05/29/14 6:23 AM) 0.2 K/CMM (05/26/14 12:00 PM) Eosinophils # [0.0-0.5 K/CMM] 100 *NA* (05/31/14 5:11 AM) Tot Cell Ct Normal (05/31/14 5:11 AM) Normal (05/30/14 5:05 AM) RBC Morph Normal (05/30/14 5:05 AM) Plt Morph Slight *Unknown* (05/31/14 5:11 AM) Large Plt 12.9 seconds (05/26/14 12:00 PM) PT [12.0-14.7 seconds] 0.98 7 (05/26/14 12:00 PM) INR [0.85-1.17] 32.8 seconds 8 (05/26/14 12:00 PM) PTT [22.9-35.8 seconds] 7Interpretive Data: RECOMMENDED RANGES FOR PROTIME INR: 2.0-3.0 for most medical and surgical thromboembolic states. 2.5-3.5 for artificial heart valves and recurrent embolism. INR SHOULD BE USED ONLY FOR PATIENTS ON STABLE ANTICOAGULANT THERAPY. 8Interpretive Data: Heparin Therapeutic Range: 57 - [...] Plan Extracted from: Title: Clinical Document Author: Kamran Cuellar MD Date: 06/01/14 Progress Note [facility] Kamran Culelar M.D. [facility] Follow up reason: Follow up for lora-op care S/P right lung mass wedge resection no chest pain no arrythmias on tele Other Diagnosis: 1. Hypertension. 2. GERD. 3. Dyslipidemia. 4. Right lung mass. VitalsTmp(F)Tmp(C)[id number] 06/01 12:[id number]/89---[id number]------ 06/01 08:[id number]/75---[id number]------ 06/01 06:55 1896 21%--- 06/01 04:[id number]/66---[id number]------ 06/01 00:0098.937.97rjhv044/83---[id number]------ General: No acute distress; Eyes:EOMI Neck: No JVD; no swelling Heart: S1, S2 normal; No murmur, No rub, No gallop Chest: B/L Air Entry + but reduced on right side; occasional wheezing present; No crepititions PA: BS+; NT; Distended NS: AAOx3; No signs of lateralization Extremities,Lower : No edema; Labs & Diagnostic Work up: Labs (Last four charted values) WBC H 14.4(JUN 01)H 14.9(MAY 31)H 13.5(MAY 30)H 11.9(MAY 29) Hgb L 11.8(JUN 01)L 12.0(MAY 31)L 12.8(MAY 30)L 13.0(MAY 29) Hct L 35.0(JUN 01)L 35.6(MAY 31)L 38.5(MAY 30)L 39.2(MAY 29) Plt 217(JUN 01)186(MAY 31)179(MAY 30)188(MAY 29) Na 136(JUN 01)138(MAY 31)135(MAY 30)136(MAY 29) K 4.1(JUN 01)3.6(MAY 31)3.9(MAY 30)4.0(MAY 29) CO2 L 23(JUN 01)L 21(MAY 31)L 20(MAY 30)L 23(MAY 29) Cl 104(JUN 01)104(MAY 31)105(MAY 30)104(MAY 29) Cr 0.8(JUN 01)1.0(MAY 31)1.2(MAY 30)1.4(MAY 29) BUN 8(JUN 01)8(MAY 31)10(MAY 30)13(MAY 29) Glucose Random H 120(JUN 01)H 134(MAY 31)H 143(MAY 30)H 162(MAY 29) Mg 2.4(JUN 01)2.1(MAY 30)1.9(MAY 29)L 1.6(MAY 28) Phos L 1.9(JUN 01) Ca L 7.8(JUN 01)L 7.6(MAY 31)L 8.2(MAY 30)L 7.9(MAY 29) PT 12.9(MAY 26) INR 0.98(MAY 26) PTT 32.8(MAY 26) Medications Medications (12) Active Scheduled: (8) albuterol 0.083% 3 ml neb SOLN 2.49 mg 3 mL, NEB, RQ4H amLODIPine 5 mg TAB 10 mg 2 tab, PO, Daily doxazosin 4 mg TAB 8 mg 2 tab, PO, Daily heparin 5000 unit/1 ml INJ VL 5,000 unit 1 mL, SUB-Q, [id number] levofloxacin (5mg/ml) D5W premix INJ 500 mg 100 mL, IVPB, OOCF25I losartan 50 mg TAB 100 mg 2 tab, PO, Daily pantoprazole 40 mg ECT 40 mg 1 tab, PO, Before Breakfast pravastatin 20 mg TAB 20 mg 1 tab, PO, Bedtime Continuous: (1) sodium chloride 0.9% 1000 ml INJ 1000 mL 1,000 mL, IV, 50 ml/hr PRN: (3) acetaminophen 325 mg TABLET 650 mg 2 tab, PO, Q6H docusate sodium 100 mg CAP 100 mg 1 cap, PO, BID nitroglycerin 0.4 mg TAB 25's btl 0.4 mg 1 tab, SL, Q5Min Assessment/Plan : -cardiacwise stable -no arrythmias on tele -Some SBP readings high but acceptable; outpatient management. -ok to discharge from cardiac standpoint with follow up in Dr Ramey office.
--- OUTSIDE RECORDS SUMMARY | 2018-12-18 23:09 | XMS REPORT | Summary of Care ---
Author Organization Unknown Address Unknown Phone Unavailable Encounter HQ [email or web address]_[email or web address](FIN) [id number] Date(s): 08/11/14 - 08/11/14 [facility] [address] Discharge Disposition: Home Physician Attending: Christelle Corrigan MD Reason for Visit 786.6 Problem List Condition Effective Dates Status Health [...]
--- NOTE | 2018-12-19 00:41 | Diagnostic Imaging Report ---
EXAM: CT Abdomen and Pelvis WITH contrast INDICATION: Bloating. Pelvic spasm. COMPARISON: None. TECHNIQUE: Abdomen and pelvis were scanned utilizing a multidetector helical scanner from the lung base to the pubic symphysis after administration of IV contrast. Coronal and sagittal reformations were obtained. Routine protocol was performed. Scan was performed when during portal venous phase. IV CONTRAST: 100 cc Isovue-370. ORAL CONTRAST: Water RADIATION DOSE: Total DLP: 729.54 mGy*cm Estimated effective dose: (DLP x 0.015 x size factor) mSv COMPLICATIONS: None FINDINGS: LINES and TUBES: None. LOWER THORAX: Right middle and lower lobe pleural parenchymal scarring. Coronary artery calcifications. Small hiatal hernia. HEPATOBILIARY: No focal hepatic lesions. No biliary ductal dilation. GALLBLADDER: No radio-opaque stones or sludge. No wall thickening. SPLEEN: No splenomegaly. PANCREAS: No focal masses or ductal dilatation. ADRENALS: No adrenal nodules KIDNEYS/URETERS: Kidneys enhance symmetrically. No hydronephrosis. No cystic or solid mass lesions. No stones. GI TRACT: There is asymmetric nodular wall thickening of an approximately 5 cm long segment of proximal sigmoid colon, with underlying diverticula, associated with stranding of the perisigmoid fat as seen on axial images 73-75, consistent with acute diverticulitis, without abscess formation. No abnormal distention to suggest obstruction. Appendix is normal. PELVIC ORGANS/BLADDER: Enlarged nodular prostate measures 6.4 x 5.5 x 5.5 cm in sagittal, AP and transverse dimensions, exerting mild mass effect on the bladder base. LYMPH NODES: No lymphadenopathy. VESSELS: There is mild atherosclerotic disease in the aorta and major arterial branches. Mild narrowing of the proximal celiac axis with mild posterior right dilatation best seen on sagittal image PERITONEUM / RETROPERITONEUM: No free air or fluid. BONES: Degenerative disc disease at L5-S1 with posterior disc osteophyte complex. Degenerative changes of the remainder of the lumbar spine, particularly at L3-L3. Small bone islands in the pelvic bones. SOFT TISSUES: Small fat-containing left inguinal hernia. IMPRESSION: 1. Acute sigmoid diverticulitis without abscess formation. Recommend follow-up after treatment to document resolution and exclude underlying neoplasm. 2. Moderately enlarged prostate. Signed by: Dr. Elo Salas M.D. on 12/19/2018 12:38 AM
[2018-12-19] MEDS ORDERED: METRONIDAZOLE 500MG/NS 100ML 100 ML IV ONE (01:00)
[2018-12-19 01:13] VITALS: BP 148/93
== END 2018-12-19 01:39 | disposition home or self-care (01) ==
LOC: FSED 23:05
DX: R10.84 Generalized abdominal pain (principal); R11.0 Nausea; R19.7 Diarrhea, unspecified; K57.32 Diverticulitis of large intestine without perforation or abscess without bleeding
CPT/HCPCS: 74177; 80053; 81003; 82553; 84484; 85025; 99284

== ENCOUNTER 2020-10-24 03:00 | Emergency (ER) | payer MEDICARE ==
[~2020-10-24] VITALS: Ht 177.8 cm; Wt 74.8 kg
[2020-10-24] MEDS ORDERED: ONDANSETRON HCL INJ 2MG/ML 2ML 2 MG/ML VIAL IV STA (03:23)
[2020-10-24] MEDS ORDERED: SODIUM CHLORIDE FLUSH 10 ML SYR INJ PRN (03:30)
[2020-10-24] MEDS ORDERED: MORPHINE SULFATE 5 MG/ML VIAL IV PRN (03:30)
[2020-10-24] MEDS ORDERED: DICYCLOMINE HCL 20 MG/2 ML VIAL IM ONE ×2 (03:30→03:59)
[2020-10-24] MEDS ORDERED: SODIUM CHLORIDE 0.9% 500ML 500 ML IV STA (03:37)
[2020-10-24] MEDS ORDERED: SODIUM CHLORIDE 0.9% 500ML 500 ML ONE (04:37)
[2020-10-24] MEDS ORDERED: SODIUM CHLORIDE 0.9% 50ML 50 ML ONE (04:37)
[2020-10-24] MEDS ORDERED: IOPAMIDOL 370 MG/ML 200 ML INFUS..BTL INJ ONE (04:38)
[2020-10-24] MEDS ORDERED: METHYLPREDNISOLONE SOD SUCC 125 MG/2ML VIAL IV ONE (05:45)
[2020-10-24] MEDS ORDERED: METHYLPREDNISOLONE SOD SUCC 125 MG/2ML VIAL ONE (05:50)
[2020-10-24] MEDS ORDERED: PREDNISONE20 MG PO (05:55)
[2020-10-24] MEDS ORDERED: ONDANSETRON ODT8 MG PO (06:03)
[2020-10-24 06:10] VITALS: BP 138/86
== END 2020-10-24 06:10 | disposition home or self-care (01) ==
LOC: FSED 03:09
DX: R10.32 Left lower quadrant pain (principal); K57.32 Diverticulitis of large intestine without perforation or abscess without bleeding; K44.9 Diaphragmatic hernia without obstruction or gangrene
CPT/HCPCS: 74177; 80048; 80076; 81003; 85025; 96372; 99284; J0500; J2930; J7040; Q9967

== ENCOUNTER 2020-10-24 09:07 | Observation (INO) | payer MEDICARE ==
[~2020-10-24] VITALS: Ht 177.8 cm; Wt 74.8 kg
[~2020-10-24 09:07] MED LIST: ONDANSETRON ODT8 MG PO; PREDNISONE20 MG PO
[2020-10-24] MEDS ORDERED: SODIUM CHLORIDE FLUSH 10 ML SYR INJ PRN (09:30)
[2020-10-24] MEDS ORDERED: ASPIRIN 81 MG CHEW TAB PO ONE (09:30)
[2020-10-24] MEDS ORDERED: NITROGLYCERIN 2% OINT 1 GM PKT TOP ONE (09:45)
[2020-10-24] MEDS: CIPROFLOXACIN 400 MG/D5W 200ML 200 ML IV SCH ×2 (10:13→21:00)
[2020-10-24] MEDS ORDERED: ASPIRIN 81 MG CHEW TAB ONE (10:15)
[2020-10-24] MEDS ORDERED: NITROGLYCERIN 2% OINT 1 GM PKT ONE (10:15)
[2020-10-24] MEDS ORDERED: CIPROFLOXACIN 400 MG/D5W 200ML 200 ML IV ONE (10:16)
[2020-10-24] MEDS ORDERED: ONDANSETRON HCL INJ 2MG/ML 2ML 2 MG/ML VIAL IV PRN (11:45)
[2020-10-24 14:00] VITALS: BP 126/81
[2020-10-24] MEDS: SODIUM CHLORIDE 0.9% 1000ML 1,000 ML IV SCH (15:12)
[2020-10-24] MEDS: FAMOTIDINE 20 MG/2 ML VIAL IV SCH ×2 (15:12→23:45)
[2020-10-24] MEDS ORDERED: NITROGLYCERIN 2% OINT 1 GM PKT TOP SCH (16:00)
[2020-10-24 16:31] VITALS: BP 123/88
[2020-10-24] MEDS: NITROGLYCERIN 2% OINT 1 GM PKT TOP SCH ×2 (16:53→22:00)
[2020-10-24] MEDS: METRONIDAZOLE 500MG/NS 100ML 100 ML IV SCH (16:53)
[2020-10-24] MEDS ORDERED: DEXTROSE 50% SYRINGE 50 ML IV PRN (17:00)
[2020-10-24] MEDS: INSULIN LISPRO 100 UNIT/1 ML 3ML VIAL SQ SCH ×2 (17:13→21:00)
[2020-10-24 20:41] VITALS: BP 123/88
[2020-10-24] MEDS ORDERED: CIPROFLOXACIN 400 MG/D5W 200ML 200 ML IV SCH (22:00)
[2020-10-24 22:51] VITALS: BP 124/82
[2020-10-24] MEDS ORDERED: TEMAZEPAM 15 MG CAP PO PRN (23:15)
[2020-10-25] MEDS: SODIUM CHLORIDE 0.9% 1000ML 1,000 ML IV SCH ×3 (00:47→14:30)
[2020-10-25] MEDS: METRONIDAZOLE 500MG/NS 100ML 100 ML IV SCH ×3 (00:47→16:18)
[2020-10-25 01:24] VITALS: BP 128/74
[2020-10-25] MEDS: NITROGLYCERIN 2% OINT 1 GM PKT TOP SCH ×3 (04:00→16:00)
[2020-10-25 06:28] LABS: CREATINE KINASE MB 1.7 ng/mL (0-5.0)
[2020-10-25 06:55] LABS: CHOL/HDL RATIO 3.1 (3.9-4.7)
[2020-10-25 07:13] VITALS: BP 120/53
[2020-10-25] MEDS: INSULIN LISPRO 100 UNIT/1 ML 3ML VIAL SQ SCH ×3 (07:30→17:18)
[2020-10-25 09:00] VITALS: BP 124/82
[2020-10-25] MEDS ORDERED: ASPIRIN 325 MG TAB EC PO SCH (09:00)
[2020-10-25] MEDS: CIPROFLOXACIN 400 MG/D5W 200ML 200 ML IV SCH (10:41)
[2020-10-25] MEDS: FAMOTIDINE 20 MG/2 ML VIAL IV SCH (11:45)
[2020-10-25 12:00] VITALS: BP 132/82
[2020-10-25] MEDS ORDERED: REGADENOSON 0.4 MG/5 ML SYR IV ONE (12:26)
[2020-10-25 15:47] VITALS: BP 137/87
[2020-10-25 16:02] LABS: CREATINE KINASE MB 2.3 ng/mL (0-5.0)
== END 2020-10-25 18:00 | disposition home or self-care (01) ==
LOC: FSED 09:29 → ERHOLD 11:45 → MED/SURG3 13:42
PROVIDERS: ADMIT Family Medicine; ATTEND Family Medicine
DX: R07.89 Other chest pain (principal); K57.92 Diverticulitis of intestine, part unspecified, without perforation or abscess without bleeding; I10 Essential (primary) hypertension; E11.9 Type 2 diabetes mellitus without complications; J44.9 Chronic obstructive pulmonary disease, unspecified; Z90.79 Acquired absence of other genital organ(s); Z85.46 Personal history of malignant neoplasm of prostate; E78.5 Hyperlipidemia, unspecified; F41.9 Anxiety disorder, unspecified; Z20.822 Contact with and (suspected) exposure to COVID-19
CPT/HCPCS: 36415 ×2; 71046; 78452; 80048; 80061; 82550 ×2; 82553 ×2; 82948 ×2; 84484 ×2; 85025; 93005; 93017; 93306; 99284; A9502; G0378 ×2; J0744 ×2; J2785; J7030 ×2; U0002

== ENCOUNTER 2020-11-02 01:26 | Emergency (ER) | payer MEDICARE ==
[~2020-11-02] VITALS: Ht 177.8 cm; Wt 74.8 kg
[2020-11-02 02:34] LABS: BASOPHILS # (AUTO) 0.1 (0.0-0.1); BASOPHILS % 0.4 % (0.0-1.0); EOSINOPHILS # (AUTO) 0.2 (0.0-0.4); EOSINOPHILS % 1.4 % (0.0-6.0); HEMOGLOBIN 15.3 g/dL (14.0-18.0); LYMPHOCYTES # (AUTO) 1.5 (1.0-3.2); LYMPHOCYTES % 10.2 % (18.0-39.1); MEAN CORPUSCULAR HEMOGLOBIN 30.6 pg (28-32); MONOCYTES # (AUTO) 1.3 (0.2-0.8); MONOCYTES % 8.5 % (4.4-11.3); NEUTROPHILS # (AUTO) 11.6 (2.1-6.9); NEUTROPHILS % 79.2 % (38.7-80.0); PLATELET COUNT 264 x10e3/uL (140-360); RED CELL DISTRIBUTION WIDTH 14.4 % (11.7-14.4)
[2020-11-02 02:36] LABS: CLARITY,URINE CLOUDY (CLEAR); COLOR,URINE YELLOW (YELLOW); KETONES,URINE TRACE (NEGATIVE); LEUKOCYTE ESTERASE ,URINE MODERATE (NEGATIVE); NITRITE,URINE NEGATIVE (NEGATIVE); PROTEIN,URINE DIPSTICK 2+ (NEGATIVE); URINE UROBILINOGEN 0.2 mg/dL (0.2 - 1)
[2020-11-02 02:44] LABS: EPITHELIAL CELLS,URINE FEW /LPF; WBC,URINE (MAN) 21-50 /HPF (0-5)
[2020-11-02 02:45] LABS: AMORPHOUS SEDIMENT,URINE FEW (FEW); BACTERIA,URINE MODERATE /HPF
[2020-11-02 02:54] LABS: ALANINE AMINOTRANSFERASE 15 IU/L (0-55); ALBUMIN 4.2 g/dL (3.5-5.0); ALBUMIN/GLOBULIN RATIO 1.1 (0.8-2.0); ALKALINE PHOSPHATASE 63 IU/L (40-150); ANION GAP 17.8 mmol/L (8-16); BLOOD UREA NITROGEN 11 mg/dL (7-26); BUN/CREATININE RATIO 11 (6-25); CALCIUM 9.2 mg/dL (8.4-10.2); CARBON DIOXIDE 23 mmol/L (22-29); CHLORIDE 100 mmol/L (98-107); CREATININE, SERUM 1.03 mg/dL (0.72-1.25); EST GLOMERULAR FILTRATION RATE > 60 ML/MIN (60-); GLUCOSE 158 mg/dL (74-118); POTASSIUM 3.8 mmol/L (3.5-5.1); SODIUM 137 mmol/L (136-145)
[2020-11-02] MEDS ORDERED: CEPHALEXIN500 MG PO (03:06)
== END 2020-11-02 03:25 | disposition home or self-care (01) ==
LOC: ER 01:58
DX: N39.0 Urinary tract infection, site not specified (principal); R31.9 Hematuria, unspecified; R10.30 Lower abdominal pain, unspecified; I10 Essential (primary) hypertension; E11.65 Type 2 diabetes mellitus with hyperglycemia; J44.9 Chronic obstructive pulmonary disease, unspecified; Z85.46 Personal history of malignant neoplasm of prostate
CPT/HCPCS: 36415; 80053; 81001; 83690; 85025; 87086; 87186; 99283

== ENCOUNTER 2021-04-06 10:34 | Emergency (ER) | payer MEDICARE ==
[~2021-04-06] VITALS: Ht 177.8 cm; Wt 76.2 kg
[~2021-04-06 10:34] MED LIST changes: +CEPHALEXIN500 MG PO
[2021-04-06] MEDS ORDERED: SODIUM CHLORIDE 0.9% 1000ML 1,000 ML IV STA (10:49)
[2021-04-06] MEDS ORDERED: IOPAMIDOL 370 MG/ML 200 ML INFUS..BTL INJ ONE (11:07)
[2021-04-06] MEDS ORDERED: SODIUM CHLORIDE 0.9% 50ML 50 ML ONE (11:07)
[2021-04-06 12:14] VITALS: BP 184/81
== END 2021-04-06 12:16 | disposition home or self-care (01) ==
LOC: FSED 10:39
DX: R10.32 Left lower quadrant pain (principal); E11.65 Type 2 diabetes mellitus with hyperglycemia; I10 Essential (primary) hypertension; J44.9 Chronic obstructive pulmonary disease, unspecified; Z85.46 Personal history of malignant neoplasm of prostate
CPT/HCPCS: 74177; 80048; 80076; 81003; 85025; 99284; Q9967

== ENCOUNTER 2021-05-13 13:38 | Emergency (ER) | payer MEDICARE ==
[~2021-05-13] VITALS: Ht 177.8 cm; Wt 75.7 kg
[2021-05-13] MEDS ORDERED: SODIUM CHLORIDE 0.9% 1000ML 1,000 ML IV STA (14:10)
[2021-05-13] MEDS ORDERED: ONDANSETRON HCL INJ 2MG/ML 2ML 2 MG/ML VIAL IV NR (14:15)
[2021-05-13] MEDS ORDERED: KETOROLAC TROMETHAMINE 30 MG/ML VIAL IV NR (14:15)
[2021-05-13] MEDS: FAMOTIDINE 20 MG/2 ML VIAL IV NR (14:30)
[2021-05-13] MEDS ORDERED: KETOROLAC TROMETHAMINE 30 MG/ML VIAL ONE (14:34)
[2021-05-13] MEDS ORDERED: ONDANSETRON HCL INJ 2MG/ML 2ML 2 MG/ML VIAL ONE (14:34)
[2021-05-13] MEDS ORDERED: SODIUM CHLORIDE 0.9% 1000ML 1,000 ML ONE (14:35)
[2021-05-13] MEDS ORDERED: FAMOTIDINE 20 MG/2 ML VIAL IV ONE (14:35)
[2021-05-13] MEDS ORDERED: SODIUM CHLORIDE 0.9% 50ML 50 ML ONE (14:52)
[2021-05-13] MEDS ORDERED: IOPAMIDOL 370 MG/ML 200 ML INFUS..BTL INJ ONE (14:52)
[2021-05-13] MEDS ORDERED: DOXAZOSIN MESYLA2 MG PO (15:28)
[2021-05-13] MEDS ORDERED: AMLODIPINE BESY10 MG PO (15:28)
[2021-05-13] MEDS ORDERED: PEPCID20 MG PO (15:28)
[2021-05-13] MEDS ORDERED: LANSOPRAZOLE30 MG (15:28)
[2021-05-13] MEDS ORDERED: XYZAL5 MG (15:28)
[2021-05-13] MEDS ORDERED: ULTRAM 50MG50 MG PO (16:10)
[2021-05-13] MEDS ORDERED: ZOFRAN4 MG PO (16:10)
[2021-05-13] MEDS ORDERED: ACETAMINOPHEN500 MG PO (16:10)
[2021-05-13] MEDS ORDERED: LEVOFLOXACIN250 MG PO (16:10)
[2021-05-13] MEDS ORDERED: METRONIDAZOLE 500MG/NS 100ML 100 ML IV ONE (16:15)
[2021-05-13] MEDS ORDERED: LEVOFLOXACIN 500 MG TAB PO ONE (16:15)
== END 2021-05-13 16:45 | disposition home or self-care (01) ==
LOC: FSED 14:05
DX: R10.32 Left lower quadrant pain (principal); K57.32 Diverticulitis of large intestine without perforation or abscess without bleeding; I10 Essential (primary) hypertension; E11.9 Type 2 diabetes mellitus without complications; J44.9 Chronic obstructive pulmonary disease, unspecified; Z85.46 Personal history of malignant neoplasm of prostate
CPT/HCPCS: 74177; 80053; 81003; 85025; 96374; 96375; 99284; J1885; J2405; J7030; Q9967

== ENCOUNTER 2021-09-03 23:24 | Emergency (ER) | payer MEDICARE ==
[~2021-09-03] VITALS: Ht 177.8 cm; Wt 75.7 kg
[~2021-09-03 23:24] MED LIST changes: +ACETAMINOPHEN500 MG PO; +AMLODIPINE BESY10 MG PO; +DOXAZOSIN MESYLA2 MG PO; +LANSOPRAZOLE30 MG; +LEVOFLOXACIN250 MG PO; +PEPCID20 MG PO; +ULTRAM 50MG50 MG PO; +XYZAL5 MG; +ZOFRAN4 MG PO
[2021-09-04] MEDS ORDERED: LANSOPRAZOLE30 MG PO (00:59)
[2021-09-04] MEDS ORDERED: CIPRO500 MG PO (01:00)
[2021-09-04] MEDS ORDERED: METRONIDAZOLE500 MG PO (01:01)
== END 2021-09-04 01:18 | disposition home or self-care (01) ==
LOC: FSED 23:30
DX: K57.32 Diverticulitis of large intestine without perforation or abscess without bleeding (principal); K21.9 Gastro-esophageal reflux disease without esophagitis; E11.9 Type 2 diabetes mellitus without complications; I10 Essential (primary) hypertension; Z72.89 Other problems related to lifestyle
CPT/HCPCS: 80053; 81003; 85025; 99283

== ENCOUNTER 2021-10-01 12:32 | Emergency (ER) | payer MEDICARE ==
[~2021-10-01] VITALS: Ht 177.8 cm; Wt 76.7 kg
[~2021-10-01 12:32] MED LIST changes: +CIPRO500 MG PO; +LANSOPRAZOLE30 MG PO; +METRONIDAZOLE500 MG PO
[2021-10-01] MEDS ORDERED: METFORMIN HCL500 MG PO (12:57)
[2021-10-01] MEDS ORDERED: FAMOTIDINE20 MG PO (12:57)
[2021-10-01] MEDS ORDERED: FLONASE ALLERG9.9 ML INH (12:58)
[2021-10-01] MEDS ORDERED: MECLIZINE HCL 12.5 MG TAB ONE (14:25)
[2021-10-01] MEDS ORDERED: MECLIZINE HCL12.5 MG PO (16:38)
[2021-10-01] MEDS ORDERED: MECLIZINE HCL 12.5 MG TAB PO SCH (21:00)
== END 2021-10-01 16:51 | disposition home or self-care (01) ==
LOC: FSED 12:45
DX: R42 Dizziness and giddiness (principal); H92.03 Otalgia, bilateral; R26.89 Other abnormalities of gait and mobility; E11.9 Type 2 diabetes mellitus without complications; I10 Essential (primary) hypertension; K21.9 Gastro-esophageal reflux disease without esophagitis; Z85.46 Personal history of malignant neoplasm of prostate
CPT/HCPCS: 70450; 80053; 81003; 82553; 84484; 85025; 93005; 99284; J8597

== ENCOUNTER 2022-02-12 15:50 | Emergency (ER) | payer MEDICARE ==
[~2022-02-12] VITALS: Ht 177.8 cm; Wt 76.7 kg
[~2022-02-12 15:50] MED LIST changes: +FAMOTIDINE20 MG PO; +FLONASE ALLERG9.9 ML INH; +MECLIZINE HCL12.5 MG PO; +METFORMIN HCL500 MG PO
[2022-02-12 16:18] LABS: BASOPHILS # (AUTO) 0.1 (0.0-0.1); BASOPHILS % 0.5 % (0.0-1.0); EOSINOPHILS # (AUTO) 0.2 (0.0-0.4); EOSINOPHILS % 1.8 % (0.0-6.0); HEMATOCRIT 46.5 % (38.2-49.6); HEMOGLOBIN 15.8 g/dL (14.0-18.0); LYMPHOCYTES # (AUTO) 2.3 (1.0-3.2); LYMPHOCYTES % 21.1 % (18.0-39.1); MEAN CORPUSCULAR HEMOGLOBIN 31.9 pg (28-32); MEAN CORPUSCULAR VOLUME 93.9 fL (81-99); MONOCYTES # (AUTO) 0.8 (0.2-0.8); MONOCYTES % 6.9 % (4.4-11.3); NEUTROPHILS # (AUTO) 7.6 (2.1-6.9); NEUTROPHILS % 69.3 % (38.7-80.0); PLATELET COUNT 244 x10e3/uL (140-360); RED BLOOD COUNT 4.95 x10e6/uL (4.3-5.7); RED CELL DISTRIBUTION WIDTH 12.9 % (11.7-14.4)
[2022-02-12 16:35] LABS: ALBUMIN 3.7 g/dL (3.5-5.0); ALBUMIN/GLOBULIN RATIO 0.8 (0.8-2.0); ANION GAP 14.1 mmol/L (8-16); CALCIUM 9.1 mg/dL (8.4-10.2); CREATININE, SERUM 1.3 mg/dL (0.72-1.25); POTASSIUM 4.1 mmol/L (3.5-5.1)
[2022-02-12] MEDS ORDERED: LEVOFLOXACIN250 MG PO (17:03)
[2022-02-12] MEDS ORDERED: METFORMIN HCL500 MG PO (17:03)
[2022-02-12] MEDS ORDERED: METRONIDAZOLE500 MG PO (17:24)
== END 2022-02-12 17:29 | disposition home or self-care (01) ==
LOC: ER 15:54
DX: K92.2 Gastrointestinal hemorrhage, unspecified (principal); I10 Essential (primary) hypertension; E11.65 Type 2 diabetes mellitus with hyperglycemia; K21.9 Gastro-esophageal reflux disease without esophagitis; Z85.46 Personal history of malignant neoplasm of prostate; Z87.19 Personal history of other diseases of the digestive system
CPT/HCPCS: 36415; 80053; 85025; 99283

== ENCOUNTER 2022-06-03 11:06 | Emergency (ER) | payer MEDICARE ==
[~2022-06-03] VITALS: Ht 177.8 cm; Wt 76.7 kg
[2022-06-03] MEDS ORDERED: BENZONATATE200 MG PO (13:23)
[2022-06-03] MEDS ORDERED: AZITHROMYCIN250 MG PO (13:23)
[2022-06-03] MEDS ORDERED: PAXLOVID 150-11 EACH PO (13:23)
== END 2022-06-03 13:37 | disposition home or self-care (01) ==
LOC: FSED 12:35
DX: R50.9 Fever, unspecified (principal); U07.1 COVID-19; R05.9 Cough, unspecified; R00.0 Tachycardia, unspecified; I10 Essential (primary) hypertension; E11.9 Type 2 diabetes mellitus without complications; K21.9 Gastro-esophageal reflux disease without esophagitis; R94.31 Abnormal electrocardiogram [ECG] [EKG]; Z85.46 Personal history of malignant neoplasm of prostate
CPT/HCPCS: 71046; 80053; 81003; 84484; 85025; 85379; 93005; 99284; U0002

== ENCOUNTER 2022-08-04 10:03 | Emergency (ER) | payer MEDICARE ==
[~2022-08-04] VITALS: Ht 177.8 cm; Wt 76.8 kg
[~2022-08-04 10:03] MED LIST changes: +AZITHROMYCIN250 MG PO; +BENZONATATE200 MG PO; +PAXLOVID 150-11 EACH PO
[2022-08-04] MEDS ORDERED: DICYCLOMINE HCL20 MG PO (10:28)
[2022-08-04] MEDS ORDERED: GLYBURIDE5 MG PO (10:29)
== END 2022-08-04 11:19 | disposition home or self-care (01) ==
LOC: FSED 10:17
DX: R10.33 Periumbilical pain (principal); E11.65 Type 2 diabetes mellitus with hyperglycemia; I10 Essential (primary) hypertension; F41.9 Anxiety disorder, unspecified
CPT/HCPCS: 80048; 80076; 81003; 85025; 99283

== ENCOUNTER 2022-08-13 21:47 | Emergency (ER) | payer MEDICARE ==
[~2022-08-13] VITALS: Ht 177.8 cm; Wt 76.2 kg
[~2022-08-13 21:47] MED LIST changes: +DICYCLOMINE HCL20 MG PO; +GLYBURIDE5 MG PO
[2022-08-14 00:30] VITALS: BP 168/93
== END 2022-08-14 00:30 | disposition home or self-care (01) ==
LOC: FSED 22:10
DX: R10.30 Lower abdominal pain, unspecified (principal); K57.90 Diverticulosis of intestine, part unspecified, without perforation or abscess without bleeding; I10 Essential (primary) hypertension; E11.9 Type 2 diabetes mellitus without complications; F41.9 Anxiety disorder, unspecified; K21.9 Gastro-esophageal reflux disease without esophagitis; Z85.46 Personal history of malignant neoplasm of prostate
CPT/HCPCS: 74176; 80053; 80076; 81003; 85025; 99284

== ENCOUNTER 2024-08-06 03:19 | Inpatient (IN) | payer MEDICARE ==
[~2024-08-06] VITALS: Ht 170.2 cm; Wt 78.0 kg
[2024-08-06] VITALS (11 sets, daily range): BP systolic 144–155; BP diastolic 81–90; PULSE 68–96; RESP 17–22; TEMP 98–98.6; O2SAT 95–98
[~2024-08-06 03:19] MED LIST changes: +DICYCLOMINE HCL10 MG PO
[2024-08-06] MEDS: METHYLPREDNISOLONE SOD SUCC 125 MG/2ML VIAL IV STA (03:40)
[2024-08-06 03:58] LABS: BASOPHILS # (AUTO) 0.1 (0.0-0.1); BASOPHILS % 0.9 % (0.0-1.0); EOSINOPHILS # (AUTO) 0.7 (0.0-0.4); EOSINOPHILS % 7.9 % (0.0-6.0); HEMATOCRIT 46.6 % (38.2-49.6); HEMOGLOBIN 15.4 g/dL (14.0-18.0); LYMPHOCYTES # (AUTO) 2.1 (1.0-3.2); LYMPHOCYTES % 24.1 % (18.0-39.1); MEAN CORPUSCULAR VOLUME 96.7 fL (81-99); MONOCYTES # (AUTO) 0.8 (0.2-0.8); MONOCYTES % 9.4 % (4.4-11.3); NEUTROPHILS % 57.4 % (38.7-80.0); PLATELET COUNT 222 x10e3/uL (140-360); RED BLOOD COUNT 4.82 x10e6/uL (4.3-5.7); RED CELL DISTRIBUTION WIDTH 12.6 % (11.7-14.4); WHITE BLOOD COUNT 8.64 x10e3/uL (4.8-10.8)
[2024-08-06] MEDS: ALBUTEROL/IPRATROPIUM 3 ML NEB NEB STA (04:01)
[2024-08-06 04:14] LABS: ALBUMIN 3.8 g/dL (3.5-5.0); ALBUMIN/GLOBULIN RATIO 0.8 (0.8-2.0); ANION GAP 16.8 mmol/L (8-16); BILIRUBIN,TOTAL 0.9 mg/dL (0.2-1.2); CALCIUM 9.3 mg/dL (8.4-10.2); CREATININE, SERUM 1.29 mg/dL (0.72-1.25); POTASSIUM 3.8 mmol/L (3.5-5.1); TOTAL PROTEIN 8.3 g/dL (6.5-8.1)
[2024-08-06 04:20] LABS: TROPONIN I 0.012 ng/mL (0-0.300)
[2024-08-06] MEDS ORDERED: IOPAMIDOL 370 MG/ML 100 ML INFUS..BTL INJ ONE (04:56)
[2024-08-06] MEDS ORDERED: GLIMEPIRIDE1 MG PO (08:01)
[2024-08-06] MEDS ORDERED: VENTOLIN HFA18 GM INH (08:02)
[2024-08-06] MEDS ORDERED: ALBUTEROL SULFATE 2 MG TAB PO PRN (11:30)
[2024-08-06] MEDS: ALBUTEROL/IPRATROPIUM 3 ML NEB NEB SCH (12:44)
[2024-08-06] MEDS: LEVOFLOXACIN 500MG/D5W 100ML 100 ML IV SCH (13:01)
[2024-08-06] MEDS: PANTOPRAZOLE SOD 40 MG TABEC PO SCH (13:02)
[2024-08-06] MEDS: DOXAZOSIN MESYLATE 2 MG TAB PO SCH (13:02)
[2024-08-06] MEDS: AMLODIPINE BESYLATE 10 MG TAB PO SCH (13:03)
[2024-08-06] MEDS: BUDESONIDE/FORMOTEROL 160/4.5MCG INHALER INH SCH (19:51)
[2024-08-06] MEDS: METHYLPREDNISOLONE SOD SUCC 40 MG/ML VIAL 1ML IV SCH (20:34)
[2024-08-06] MEDS: FAMOTIDINE 20 MG TAB PO SCH (20:35)
[2024-08-06] MEDS ORDERED: FAMOTIDINE 20 MG TAB PO SCH (21:00)
[2024-08-07] VITALS (9 sets, daily range): BP systolic 144–152; BP diastolic 82–90; PULSE 70–85; RESP 18–20; TEMP 97.5–97.9; O2SAT 95–98
[2024-08-07 05:23] LABS: BASOPHILS % 0.2 % (0.0-1.0); HEMATOCRIT 42.7 % (38.2-49.6); HEMOGLOBIN 14.4 g/dL (14.0-18.0); LYMPHOCYTES # (AUTO) 0.9 (1.0-3.2); LYMPHOCYTES % 7.9 % (18.0-39.1); MEAN CORPUSCULAR HEMOGLOBIN 32.3 pg (28-32); MEAN CORPUSCULAR HGB CONC 33.7 g/dL (31-35); MEAN CORPUSCULAR VOLUME 95.7 fL (81-99); MONOCYTES # (AUTO) 0.4 (0.2-0.8); MONOCYTES % 3.2 % (4.4-11.3); NEUTROPHILS # (AUTO) 9.6 (2.1-6.9); NEUTROPHILS % 88.1 % (38.7-80.0); PLATELET COUNT 219 x10e3/uL (140-360); RED BLOOD COUNT 4.46 x10e6/uL (4.3-5.7); RED CELL DISTRIBUTION WIDTH 12.7 % (11.7-14.4); WHITE BLOOD COUNT 10.84 x10e3/uL (4.8-10.8)
[2024-08-07 05:51] LABS: ANION GAP 15.2 mmol/L (8-16); CALCIUM 9.1 mg/dL (8.4-10.2); CREATININE, SERUM 1.18 mg/dL (0.72-1.25); POTASSIUM 4.2 mmol/L (3.5-5.1)
[2024-08-07] MEDS ORDERED: AMLODIPINE BESYLATE 10 MG TAB PO SCH (09:00)
[2024-08-07] MEDS: GLIMEPIRIDE 2 MG TAB PO SCH (09:33)
[2024-08-07] MEDS ORDERED: DOXAZOSIN MESYLATE 2 MG TAB PO SCH (13:00)
== END 2024-08-07 20:45 | disposition home or self-care (01) | DRG 191 ==
LOC: ER 03:23 → ERHOLD 04:57 → MED/SURG2 06:15
PROVIDERS: ADMIT Family Medicine; ATTEND Family Medicine
DX: J44.1 Chronic obstructive pulmonary disease with (acute) exacerbation (principal); K57.92 Diverticulitis of intestine, part unspecified, without perforation or abscess without bleeding; I10 Essential (primary) hypertension; E11.9 Type 2 diabetes mellitus without complications; F41.9 Anxiety disorder, unspecified; K21.9 Gastro-esophageal reflux disease without esophagitis; R09.02 Hypoxemia; Z11.52 Encounter for screening for COVID-19; Z79.84 Long term (current) use of oral hypoglycemic drugs; Z85.46 Personal history of malignant neoplasm of prostate; Z90.2 Acquired absence of lung [part of]; Z90.49 Acquired absence of other specified parts of digestive tract; Z90.79 Acquired absence of other genital organ(s); Z88.6 Allergy status to analgesic agent; Z88.1 Allergy status to other antibiotic agents; Z88.0 Allergy status to penicillin; Z88.8 Allergy status to other drugs, medicaments and biological substances; Z91.048 Other nonmedicinal substance allergy status; Z87.891 Personal history of nicotine dependence
CPT/HCPCS: 36415; 71045; 80048; 80053; 82550; 83690; 83880; 84484; 85025; 93005; 94640; 94799; 99252; 99284; J1956; J2919; Q9967; U0002

== ENCOUNTER 2024-08-24 12:56 | Observation (INO) | payer MEDICARE ==
[~2024-08-24] VITALS: Ht 170.2 cm; Wt 78.0 kg
[~2024-08-24 12:56] MED LIST changes: +GLIMEPIRIDE1 MG PO; +VENTOLIN HFA18 GM INH
[2024-08-24 13:02] VITALS: TEMP 98.1
[2024-08-24] MEDS ORDERED: SODIUM CHLORIDE FLUSH 10 ML SYR IV PRN (13:15)
[2024-08-24 13:36] LABS: BASOPHILS % 0.5 % (0.0-1.0); EOSINOPHILS # (AUTO) 0.5 (0.0-0.4); EOSINOPHILS % 6.5 % (0.0-6.0); HEMATOCRIT 48.6 % (38.2-49.6); LYMPHOCYTES # (AUTO) 1.6 (1.0-3.2); LYMPHOCYTES % 21.2 % (18.0-39.1); MEAN CORPUSCULAR HEMOGLOBIN 31.8 pg (28-32); MEAN CORPUSCULAR HGB CONC 32.9 g/dL (31-35); MEAN CORPUSCULAR VOLUME 96.6 fL (81-99); MONOCYTES # (AUTO) 0.7 (0.2-0.8); MONOCYTES % 8.9 % (4.4-11.3); NEUTROPHILS # (AUTO) 4.7 (2.1-6.9); NEUTROPHILS % 62.8 % (38.7-80.0); PLATELET COUNT 217 x10e3/uL (140-360); RED BLOOD COUNT 5.03 x10e6/uL (4.3-5.7); RED CELL DISTRIBUTION WIDTH 12.8 % (11.7-14.4); WHITE BLOOD COUNT 7.54 x10e3/uL (4.8-10.8)
[2024-08-24 13:52] LABS: ALBUMIN 3.8 g/dL (3.5-5.0); ANION GAP 14.1 mmol/L (8-16); BILIRUBIN,TOTAL 0.6 mg/dL (0.2-1.2); CALCIUM 9.7 mg/dL (8.4-10.2); CREATININE, SERUM 1.06 mg/dL (0.72-1.25); POTASSIUM 4.1 mmol/L (3.5-5.1); TOTAL PROTEIN 7.6 g/dL (6.5-8.1)
[2024-08-24 13:58] LABS: TROPONIN I 0.008 ng/mL (0-0.300)
[2024-08-24] MEDS: ASPIRIN 81 MG CHEW TAB PO ONE ×2 (14:14→15:14)
[2024-08-24] MEDS: ONDANSETRON HCL INJ 2MG/ML 2ML 2 MG/ML VIAL IV STA (14:14)
[2024-08-24] MEDS: DICYCLOMINE HCL 20 MG/2 ML VIAL IM ONE (14:14)
[2024-08-24] MEDS ORDERED: SODIUM CHLORIDE FLUSH 10 ML SYR INJ PRN (15:00)
[2024-08-24 16:30] VITALS: PULSE 63; RESP 18
[2024-08-24] MEDS: METHOCARBAMOL 500 MG TAB PO ONE (17:22)
[2024-08-24 18:58] VITALS: BP 160/90; PULSE 73; RESP 19; TEMP 97.7; O2SAT 99
[2024-08-24 20:00] VITALS: BP 155/90; PULSE 73; RESP 22; TEMP 97.6; O2SAT 98
[2024-08-24] MEDS: TIZANIDINE HCL 4 MG TAB PO PRN (21:57)
[2024-08-25] VITALS (7 sets, daily range): BP systolic 119–150; BP diastolic 83–88; PULSE 58–66; RESP 17–18; TEMP 97.6–98; O2SAT 97–100
[2024-08-25 05:46] LABS: BASOPHILS % 0.7 % (0.0-1.0); EOSINOPHILS # (AUTO) 0.5 (0.0-0.4); EOSINOPHILS % 9.1 % (0.0-6.0); HEMATOCRIT 44.2 % (38.2-49.6); HEMOGLOBIN 14.6 g/dL (14.0-18.0); LYMPHOCYTES # (AUTO) 1.4 (1.0-3.2); LYMPHOCYTES % 23.6 % (18.0-39.1); MEAN CORPUSCULAR HEMOGLOBIN 32.1 pg (28-32); MEAN CORPUSCULAR VOLUME 97.1 fL (81-99); MONOCYTES # (AUTO) 0.6 (0.2-0.8); MONOCYTES % 10.2 % (4.4-11.3); NEUTROPHILS # (AUTO) 3.3 (2.1-6.9); NEUTROPHILS % 56.1 % (38.7-80.0); PLATELET COUNT 218 x10e3/uL (140-360); RED BLOOD COUNT 4.55 x10e6/uL (4.3-5.7); RED CELL DISTRIBUTION WIDTH 12.8 % (11.7-14.4)
[2024-08-25 06:22] LABS: ALBUMIN 3.3 g/dL (3.5-5.0); ALBUMIN/GLOBULIN RATIO 0.9 (0.8-2.0); ANION GAP 12.6 mmol/L (8-16); BILIRUBIN,TOTAL 0.6 mg/dL (0.2-1.2); CREATININE, SERUM 1.17 mg/dL (0.72-1.25); POTASSIUM 3.6 mmol/L (3.5-5.1); TOTAL PROTEIN 6.8 g/dL (6.5-8.1)
[2024-08-25 06:36] LABS: CHOL/HDL RATIO 7.1 (3.9-4.7)
[2024-08-25 06:53] LABS: THYROID STIMULATING HORMONE 2.825 uIU/mL (0.350-4.940)
[2024-08-25 06:57] LABS: MAGNESIUM 2.2 MG/DL (1.3-2.1); PHOSPHORUS 3.7 MG/DL (2.3-4.7)
[2024-08-25 07:01] LABS: TROPONIN I 0.01 ng/mL (0-0.300)
[2024-08-25] MEDS ORDERED: ALBUTEROL SULF 0.083% NEB SOLN 3 ML NEB INH PRN ×2 (13:45→14:30)
[2024-08-25 15:05] LABS: TROPONIN I 0.013 ng/mL (0-0.300)
[2024-08-25] MEDS: DICYCLOMINE HCL 20 MG TAB PO SCH (17:02)
[2024-08-25] MEDS: FAMOTIDINE 20 MG TAB PO SCH (20:56)
[2024-08-26] VITALS (7 sets, daily range): BP systolic 127–156; BP diastolic 73–97; PULSE 60–85; RESP 16–19; TEMP 97.6–98.6; O2SAT 96–99
[2024-08-26] MEDS ORDERED: NON-FORMULARY MEDICATION (Glimepiride 1 TAB) PO SCH (09:00)
[2024-08-26] MEDS: GLIMEPIRIDE 2 MG TAB PO SCH (09:00)
[2024-08-26] MEDS: DOXAZOSIN MESYLATE 2 MG TAB PO SCH (09:00)
[2024-08-26] MEDS: AMLODIPINE BESYLATE 10 MG TAB PO SCH (09:00)
[2024-08-26] MEDS: ASPIRIN 81 MG ENTERIC COATED PO SCH (10:14)
[2024-08-26] MEDS ORDERED: ATORVASTATIN 40 MG TAB PO SCH (21:00)
== END 2024-08-26 18:42 | disposition home or self-care (01) ==
LOC: ER 13:33 → ERHOLD 14:54 → MED/SURG2 18:31
PROVIDERS: ADMIT Family Medicine; ATTEND Family Medicine
DX: R10.12 Left upper quadrant pain (principal); R25.2 Cramp and spasm; J44.1 Chronic obstructive pulmonary disease with (acute) exacerbation; Z87.891 Personal history of nicotine dependence; I10 Essential (primary) hypertension; E78.00 Pure hypercholesterolemia, unspecified; I44.0 Atrioventricular block, first degree; R00.1 Bradycardia, unspecified; I49.3 Ventricular premature depolarization; E11.9 Type 2 diabetes mellitus without complications; Z79.84 Long term (current) use of oral hypoglycemic drugs; K21.9 Gastro-esophageal reflux disease without esophagitis; I27.20 Pulmonary hypertension, unspecified; Z71.3 Dietary counseling and surveillance; Z68.26 Body mass index [BMI] 26.0-26.9, adult; Z85.46 Personal history of malignant neoplasm of prostate; Z90.79 Acquired absence of other genital organ(s); Z90.2 Acquired absence of lung [part of]; Z90.49 Acquired absence of other specified parts of digestive tract; Z85.110 Personal history of malignant carcinoid tumor of bronchus and lung; Z79.899 Other long term (current) drug therapy
CPT/HCPCS: 36415 ×3; 71046; 80053 ×2; 80061; 82550; 82948 ×3; 83735 ×2; 83880; 84100; 84443; 84484 ×2; 85025 ×2; 93005 ×2; 93306; 94760; 94799 ×2; 99284; G0378 ×3; J0500; J2405

== ENCOUNTER 2024-11-02 09:14 | Emergency (ER) | payer MEDICARE ==
[~2024-11-02] VITALS: Ht 177.8 cm; Wt 77.7 kg
[2024-11-02 09:17] VITALS: PULSE 77; RESP 18; TEMP 98.1
[2024-11-02] MEDS ORDERED: TRELEGY ELLIPT1 EACH (09:36)
[2024-11-02] MEDS ORDERED: NEURONTIN300 MG PO (09:36)
[2024-11-02] MEDS ORDERED: XYZAL2.5 MG/5 M (09:36)
[2024-11-02] MEDS: DICYCLOMINE HCL 20 MG/2 ML VIAL IM ONE (10:21)
[2024-11-02] MEDS: SODIUM CHLORIDE 0.9% 1000ML 1,000 ML IV SCH (10:21)
[2024-11-02] MEDS ORDERED: IOPAMIDOL 370 MG/ML 100 ML INFUS..BTL INJ ONE (10:39)
[2024-11-02 12:49] VITALS: BP 152/76; PULSE 62; RESP 16; TEMP 97.3; O2SAT 96
== END 2024-11-02 12:56 | disposition home or self-care (01) ==
LOC: FSED 09:17
DX: R10.32 Left lower quadrant pain (principal); R14.0 Abdominal distension (gaseous); K57.90 Diverticulosis of intestine, part unspecified, without perforation or abscess without bleeding; K76.0 Fatty (change of) liver, not elsewhere classified; K58.9 Irritable bowel syndrome, unspecified; I10 Essential (primary) hypertension; E11.65 Type 2 diabetes mellitus with hyperglycemia; J45.909 Unspecified asthma, uncomplicated; K21.9 Gastro-esophageal reflux disease without esophagitis; F41.9 Anxiety disorder, unspecified; Z85.46 Personal history of malignant neoplasm of prostate
CPT/HCPCS: 74177; 80053; 80076; 81003; 85025; 99283; J0500; J7030; Q9967

== ENCOUNTER 2025-05-16 12:58 | Emergency (ER) | payer MEDICARE ==
[~2025-05-16] VITALS: Ht 177.8 cm; Wt 77.6 kg
[~2025-05-16 12:58] MED LIST changes: +ACETAMINOPHEN-1 EAC3 PO; +NEURONTIN300 MG PO; +TRELEGY ELLIPT1 EACH; +XYZAL2.5 MG/5 M
[2025-05-16] MEDS ORDERED: IOPAMIDOL 370 MG/ML 100 ML INFUS..BTL INJ ONE (14:11)
[2025-05-16] MEDS ORDERED: LEVOFLOXACIN250 MG PO (15:33)
[2025-05-16 16:08] VITALS: PULSE 77; RESP 18; TEMP 98.2; O2SAT 98
== END 2025-05-16 16:10 | disposition home or self-care (01) ==
LOC: FSED 13:04
DX: R10.9 Unspecified abdominal pain (principal); K57.30 Diverticulosis of large intestine without perforation or abscess without bleeding; J98.4 Other disorders of lung; I10 Essential (primary) hypertension; E11.9 Type 2 diabetes mellitus without complications; J45.909 Unspecified asthma, uncomplicated; K21.9 Gastro-esophageal reflux disease without esophagitis; F41.9 Anxiety disorder, unspecified; Z85.46 Personal history of malignant neoplasm of prostate
CPT/HCPCS: 74177; 99284; Q9967